=== PATIENT | female | born 2000 | race Caucasian/White ===

== ENCOUNTER → 2019-12-29 10:26 | Outpatient (BNVA) | payer SELFPAY | PROVIDERS: Family Provider Nurse Practitioner; PCP Nurse Practitioner; Visit Provider Nurse Practitioner Family | DX: R53.83 Other fatigue (principal) | CPT/HCPCS: 80053; 82306; 82607; 84443; 85025 ==

== ENCOUNTER 2020-08-29 10:59 | Emergency (ER) | payer SELFPAY ==
--- NOTE | 2020-08-29 11:01 | CT_ITS ---
WS: [id number] CT ABDOMEN AND PELVIS WITH CONTRAST HISTORY: RIGHT lower quadrant abdominal pain for one day. TECHNIQUE: Imaging performed of the abdomen and pelvis with IV contrast. Single phase imaging of the abdomen. Coronal and sagittal reformats are submitted. All CT scans at [facility] use at least one of these dose optimization techniques: automated exposure control; mA and/or kV adjustment per patient size (includes targeted exams where dose is matched to clinical indication); or iterativ e reconstruction. IV CONTRAST: Omnipaque 300; 95 mL IV. Oral contrast: No DLP: 470.98 mGy.cm COMPARISON: 03/31/2017 Lower thorax: Lung bases are clear. Heart is normal size. No hiatal hernia. Liver/biliary system: Normal size with no intrahepatic dilatation. Gallbladder: Normal. No gallstones or wall thickening. No pericholecystic fluid. Pancreas: Normal. Spleen: Normal. Adrenal glands: Normal. Right kidney: Normal. Left kidney: Normal. Aorta: Normal. Lymphadenopathy: None. Free fluid: None. GI tract: Normal appendix. No GI tract obstruction. No evidence for colitis. Abdominal wall: Unremarkable abdominal wall. No hernia. Pelvis: Nondistended urinary bladder. The uterus is midline. There are several small follicles associ ated with the RIGHT ovary. The entire cluster of follicles measures 2.1 x 2.1 cm. No adenopathy or fr ee fluid. Bones: Unremarkable. CT/CT abdomen pelvis w con* [id number] IMPRESSION: 1. Normal appendix. 2. Small cluster of RIGHT ovarian follicles. No solid mass or large cyst. 3. No free fluid.
--- NOTE | 2020-08-29 11:12 | W.ED.ABDPA2 ---
HPI - Abdominal Pain General: Chief Complaint: Abdominal Pain Stated Complaint: ABD PAIN/APPENDIX RELATED ISSUES Time Seen by Provider: 08/29/20 11:02 Source: patient Mode of arrival: ambulatory Limitations: no limitations History of Present Illness: HPI narrative: 20-year-old female states she started having abdominal pain last night that worsened today. States her pain is sharp in nature and rates it a 9 out of 10. Patient was seen in clinic earlier and sent her here to rule out appendicitis. She has had vomiting no fever. MD elicited complaint: abdominal pain Pertinent past history: none Onset (ago): day(s) Pain Consistency: constant Location: RLQ Severity: moderate Quality: stabbing Radiation: none Migration to: no migration Exacerbating factors: movement Relieving factors: rest Associated Symptoms: Denies chills, dysuria and fever(s) Review of Systems Const: Denies: fever(s), chills, body aches or change in appetite Eyes: Denies: blurry vision or eye discomfort ENMT: Denies: throat pain or dental pain Card: Denies: chest pain Resp: Denies: dyspnea GI: Reports: abdominal pain : Denies: dysuria Musc: Denies: neck pain or back pain Skin/Breast: Denies: rash Neuro: Denies: headache(s) Psych: Denies: depression Howard/Lymph: Denies: easy bruising All/Imm: Denies: urticaria PFSH ED PFSH: Family History Family/Other Hypertension Denies family history of Clotting disorder Anesthesia complication Bleeding disorder Social History Smoking and tobacco status: former smoker Second hand smoke exposure: No Alcohol intake: never Lives independently: No Household members: family Marital status: Single service: No Current occupational status: student 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 [employer] History of recent travel: No Current gender identity: Female Physical Exam Const: COMMON NORMALS: no acute distress, patient oriented x3 and healthy appearing HENMT: COMMON NORMALS: normocephalic and atraumatic HEAD & SCALP: normocephalic and atraumatic Eye: COMMON NORMALS: Equal, round and reactive pupils present and EOMs intact bilaterally PUPIL: Yes Equal, round and reactive pupils present Neck/C-Spine: COMMON NORMALS: full ROM and supple Chest: COMMONS NORMALS: normal inspection of the chest and normal palpation of entire chest wall Resp: COMMON NORMALS: normal respiratory effort, No retractions, No use of accessory muscles and clear to auscultation bilaterally AUSCULTATION: clear to auscultation bilaterally Cardio: COMMON NORMALS: regular rate, regular rhythm and No murmurs present (Cardio) RATE: regular rate RHYTHM: regular rhythm GI: COMMON NORMALS: Normal to inspection, nondistended, normoactive bowel sounds present, Soft to palpation and no masses PALPATION: Yes Soft to palpation and Yes Tenderness to palpation present (GI) Details: RLQ Extremity: COMMON NORMALS: normal to inspection and full ROM Neuro: COMMON NORMALS: patient oriented x3, moves all extremities and no focal motor deficits Psych: COMMON NORMALS: mental status grossly normal, Normal thought process present and cooperative THOUGHT PROCESS: Normal thought process present Skin: COMMON NORMALS: no rashes or lesions noted and no wounds GENERAL SKIN EXAM: no rashes or lesions noted Course Vital Signs: Vital signs: Vital Signs Temperature 97.2 F L 08/29/20 11:35 Pulse Rate 78 08/29/20 11:35 Respiratory Rate 18 08/29/20 12:52 Blood Pressure 119/81 08/29/20 11:35 Pulse Oximetry 98 08/29/20 12:52 MDM - Abdominal Pain MDM Narrative: Medical decision making narrative: Patient presents here with abdominal pain likely from ovarian cyst. CT showed no signs of appendicitis. Formal ultrasound showed good blood flow to both ovaries no signs of torsion. Patient abdominal exam at discharge is benign. He is stable for discharge and is to follow-up with PCP in 2 to 4 days and return if worsening. Lab Data: Labs: Lab Results 08/29/20 08/29/20 08/29/20 Range/Units 11:24 11:24 12:15 WBC 9.7 (4.0-10.0) 10^3/ uL RBC 4.80 (4.1-5.3) 10^6/u L Hgb 14.4 (11.5-15.3) g/dL Hct 45.2 (37.0-47.0) % MCV 94.2 (81-99) fL MCH 30.0 (28.0-34.0) pg MCHC 31.9 (30.0-36.0) g/dL RDW 12.4 (12.1-15.1) % Plt Count 369 (130-400) 10^3/c mm MPV 10.2 (7.4-10.4) fL Neut % (Auto) 76.3 % Lymph % (Auto) 16.1 % Ward % (Auto) 6.3 % Eos % (Auto) 0.4 % Baso % (Auto) 0.7 % Neut # (Auto) 7.38 (1.8-7.7) 10^3/u L Lymph # (Auto) 1.6 (0.8-4.8) 10^3/u L Ward # (Auto) 0.6 (0.2-0.9) 10^3/u L Eos # (Auto) 0.0 (0.0-0.8) 10^3/u L Baso # (Auto) 0.1 (0.0-0.1) 10^3/u L Nucleated RBC % (a uto) 0 % Nucleated RBCs # 0.0 /100WBC Sodium 140 (136-145) mmol/L Potassium 3.5 (3.5-5.1) mmol/L Chloride 104 (98-107) mmol/L Carbon Dioxide 20 L (22-29) mmol/L Anion Gap 19.5 H (5-19) BUN 10 (6-20) mg/dL Creatinine 0.7 (0.5-0.9) mg/dL GFR Calculation 105.6 (90-130) mL/min Glucose 92 (65-115) mg/dL Calculated Osmolal ity 289 (285-295) mOsm/k g Calcium 9.3 (8.5-10.5) mg/dL Total Bilirubin 0.7 (0.15-1.2) mg/dL AST 16 (0-32) U/L ALT 10 (0-33) U/L Alkaline Phosphata se 105 (35-105) IU/L Total Protein 7.6 (6.6-8.7) g/dL Albumin 4.9 (3.5-5.2) g/dL Globulin 2.7 (1.3-4.6) g/dL Lipase 39 (13-60) U/L HCG, Qual Negative (Negative) Urine Color (Yellow) Urine Appearance (CLEAR) Urine pH (5-7) Ur Specific Gravit y (1.005-1.030) Urine Protein (Negative) Urine Glucose (UA) (Normal) Urine Ketones (Negative) Urine Blood (Negative) Urine Nitrate (Negative) Urine Bilirubin (Negative) Urine Urobilinogen (Negative) mg/dL Ur Leukocyte Hilda ase (Negative) 08/29/20 Range/Units 12:15 WBC (4.0-10.0) 10^3/ uL RBC (4.1-5.3) 10^6/u L Hgb (11.5-15.3) g/dL Hct (37.0-47.0) % MCV (81-99) fL MCH (28.0-34.0) pg MCHC (30.0-36.0) g/dL RDW (12.1-15.1) % Plt Count (130-400) 10^3/c mm MPV (7.4-10.4) fL Neut % (Auto) % Lymph % (Auto) % Ward % (Auto) % Eos % (Auto) % Baso % (Auto) % Neut # (Auto) (1.8-7.7) 10^3/u L Lymph # (Auto) (0.8-4.8) 10^3/u L Ward # (Auto) (0.2-0.9) 10^3/u L Eos # (Auto) (0.0-0.8) 10^3/u L Baso # (Auto) (0.0-0.1) 10^3/u L Nucleated RBC % (a uto) % Nucleated RBCs # /100WBC Sodium (136-145) mmol/L Potassium (3.5-5.1) mmol/L Chloride (98-107) mmol/L Carbon Dioxide (22-29) mmol/L Anion Gap (5-19) BUN (6-20) mg/dL Creatinine (0.5-0.9) mg/dL GFR Calculation (90-130) mL/min Glucose (65-115) mg/dL Calculated Osmolal ity (285-295) mOsm/k g Calcium (8.5-10.5) mg/dL Total Bilirubin (0.15-1.2) mg/dL AST (0-32) U/L ALT (0-33) U/L Alkaline Phosphata se (35-105) IU/L Total Protein (6.6-8.7) g/dL Albumin (3.5-5.2) g/dL Globulin (1.3-4.6) g/dL Lipase (13-60) U/L HCG, Qual (Negative) Urine Color Yellow (Yellow) Urine Appearance Clear (CLEAR) Urine pH 5 (5-7) Ur Specific Gravit y 1.005 (1.005-1.030) Urine Protein Neg (Negative) Urine Glucose (UA) Norm (Normal) Urine Ketones 2+ H (Negative) Urine Blood Neg (Negative) Urine Nitrate Negative (Negative) Urine Bilirubin 1+ H (Negative) Urine Urobilinogen Norm (Negative) mg/dL Ur Leukocyte Hilda ase Negative (Negative) Imaging Data ^: CT Abd/Pel: Radiologist's impression: [address] [place] [address] CT Scan Report Signed Patient: Peyton Webber Unit #: [id number] : 2000 Age/Sex: 20 / F ADM Date: 08/29/20 Loc: ER Room/Bed: Attending Dr: Ordering Provider/Ordering MD: Sebastian Johnson MD Date of Service: 08/29/20 Procedure(s): CT abdomen pelvis w con* [id number] Accession Number(s): [id number] Report Number: [id number] WS: [id number] CT ABDOMEN AND PELVIS WITH CONTRAST HISTORY: RIGHT lower quadrant abdominal pain for one day. TECHNIQUE: Imaging performed of the abdomen and pelvis with IV contrast. Single phase imaging of the abdomen. Coronal and sagittal reformats are submitted. All CT scans at [facility] use at least one of these dose optimization techniques: automated exposure control; mA and/or kV adjustment per patient size (includes targeted exams where dose is matched to clinical indication); or iterative reconstruction. IV CONTRAST: Omnipaque 300; 95 mL IV. Oral contrast: No DLP: 470.98 mGy.cm COMPARISON: 03/31/2017 Lower thorax: Lung bases are clear. Heart is normal size. No hiatal hernia. Liver/biliary system: Normal size with no intrahepatic dilatation. Gallbladder: Normal. No gallstones or wall thickening. No pericholecystic fluid. Pancreas: Normal. Spleen: Normal. Adrenal glands: Normal. Right kidney: Normal. Left kidney: Normal. Aorta: Normal. Lymphadenopathy: None. Free fluid: None. GI tract: Normal appendix. No GI tract obstruction. No evidence for colitis. Abdominal wall: Unremarkable abdominal wall. No hernia. Pelvis: Nondistended urinary bladder. The uterus is midline. There are several small follicles associated with the RIGHT ovary. The entire cluster of follicles measures 2.1 x 2.1 cm. No adenopathy or free fluid. Bones: Unremarkable. CT/CT abdomen pelvis w con* [id number] IMPRESSION: 1. Normal appendix. 2. Small cluster of RIGHT ovarian follicles. No solid mass or large cyst. 3. No free fluid. Discharge Plan Discharge Patient Disposition: Home Clinical Impression: Abdominal pain Qualifiers: Abdominal location: generalized Qualified Code(s): R10.84 - Generalized abdominal pain Condition: Stable Prescriptions: New ondansetron 4 mg tablet,disintegrating 4 mg PO Q6H PRN (Reason: nausea and vomiting) Qty: 14 RF: 0 Naprosyn 500 mg tablet 500 mg PO BID PRN (Reason: pain) Qty: 20 RF: 0 Discharge Orders: Discharge Order (Routine); Ordered 08/29/20 Ordered By: Sebastian Johnson Referrals: Nasrin Alarcon, MAINTENANCE SERVICE DISPATCHER-C [Primary Care Provider] - 1-3 days Discharge Diet: Advance as tolerated Discharge Activity: Resume usual activity Patient Instructions: Abdominal Pain (ED) Coding Level of Care Code ED Water Meter Mechanic for Chg Fwd Exam Comprehensive
[2020-08-29 11:15] VITALS: RESP 18; O2SAT 99
[2020-08-29] MEDS: morphine 4 mg/mL SDV 1 mL IVP (11:15)
[2020-08-29 11:35] VITALS: BP 119/81; PULSE 78; RESP 18; TEMP 36.2; O2SAT 98; BMI 24.7
[2020-08-29] MEDS: iohexol 300 mg/mL 100 mL Btl IV (11:48)
[2020-08-29] MEDS: sodium chloride 0.9% 1,000 ML 999 ML IV (11:57)
[2020-08-29] MEDS: ondansetron 2 mg/ML SDV 2 mL 4 MG IVP (11:57)
--- NOTE | 2020-08-29 12:14 | US_ITS ---
WS: [id number] PELVIC ULTRASOUND REASON FOR VISIT: pelvic pain TECHNIQUE: Grayscale and Doppler transabdominal ultrasound of the pelvis. FINDINGS: Uterus measures 7.2 cm x 3.7 cm x 3.0 cm. No intrauterine . Right ovary measures 3.7 cm x 1.7 cm x 1.9 cm. Left left ovary measures 4.0 cm x 2.4 cm x 1.9 cm. There are small cysts noted on the right ovary. Normal blood flow in both ovaries. No pelvic mass and no free pelvic fluid. US/US pelvic complete* [id number] IMPRESSION: No significant abnormality seen.
[2020-08-29 12:25] LABS: Add Urine Microscopic? NO
[2020-08-29 12:33] LABS: HCG Qualitative Urine. Negative (Negative); Urine Appearance Clear (CLEAR); Urine Color Yellow (Yellow)
[2020-08-29 12:34] LABS: Bilirubin Urine 1+ (Negative); Blood Urine Neg (Negative); Glucose Urine UA Norm (Normal); Ketones Urine 2+ (Negative); Leukocyte Esterase Urine Negative (Negative); Nitrate Urine Negative (Negative); Protein Urine Neg (Negative); Specific Gravity, Urine 1.005 (1.005-1.030); Urobilinogen Urine Norm (Negative); pH Urine 5 (5-7)
[2020-08-29 12:38] LABS: Basophils # 0.1 10^3/uL (0.0-0.1); Basophils % 0.7 %; Eosinophils % 0.4 %; Hematocrit 45.2 % (37.0-47.0); Hemoglobin 14.4 g/dL (11.5-15.3); Lymphocytes # 1.6 10^3/uL (0.8-4.8); Lymphocytes % 16.1 %; Mean Corpuscular HGB Conc 31.9 g/dL (30.0-36.0); Mean Corpuscular Volume 94.2 fL (81-99); Mean Platelet Volume 10.2 fL (7.4-10.4); Monocytes # 0.6 10^3/uL (0.2-0.9); Monocytes % 6.3 %; Neutrophils # 7.38 10^3/uL (1.8-7.7); Neutrophils % 76.3 %; Nucleated Red Blood Cells % 0 %; Platelet Count 369 10^3/cmm (130-400); Red Cell Distribution Width 12.4 % (12.1-15.1); White Blood Count 9.7 10^3/uL (4.0-10.0)
[2020-08-29 12:52] VITALS: RESP 18; O2SAT 98
[2020-08-29] MEDS: HYDROmorphone 1 mg/mL INJ 1 mL IVP (12:52)
[2020-08-29 13:08] LABS: Alanine Aminotransferase 10 U/L (0-33); Albumin Level 4.9 g/dL (3.5-5.2); Alkaline Phosphatase 105 IU/L (35-105); Anion Gap 19.5 (5-19); Aspartate Amino Transferase 16 U/L (0-32); Blood Urea Nitrogen 10 mg/dL (6-20); Calcium 9.3 mg/dL (8.5-10.5); Carbon Dioxide 20 mmol/L (22-29); Chloride 104 mmol/L (98-107); Creatinine Clr Calc Pharmacy 114.0771; Globulin 2.7 g/dL (1.3-4.6); Glomerular Filtration Rate 105.6 mL/min (90-130); Glucose 92 mg/dL (65-115); Lipase 39 U/L (13-60); Osmolality Calculated 289 mOsm/kg (285-295); Potassium 3.5 mmol/L (3.5-5.1); Sodium 140 mmol/L (136-145); Total Bilirubin 0.7 mg/dL (0.15-1.2); Total Protein 7.6 g/dL (6.6-8.7)
[2020-08-29 13:53] VITALS: BP 108/70; PULSE 80; RESP 16; O2SAT 99
== END 2020-08-29 13:54 | disposition home or self-care (01) ==
PROVIDERS: Emergency Provider Emergency Medicine; PCP Nurse Practitioner
DX: R10.84 Generalized abdominal pain (principal); Z87.891 Personal history of nicotine dependence
CPT/HCPCS: 12345; 74177; 76856; 80053; 81003; 81025; 83690; 85025; 96361; 96374; 96375; 99282; 99283; J1170; J2270; J2405; J7030; Q9967

== ENCOUNTER → 2020-10-03 13:55 | Outpatient (BNVA) | payer SELFPAY | PROVIDERS: PCP Nurse Practitioner; Visit Provider Internal Medicine | DX: Z20.828 Contact with and (suspected) exposure to other viral communicable diseases (principal) | CPT/HCPCS: 87635 ==

== ENCOUNTER 2020-10-09 07:24 | Day surgery (SDC) | payer SELFPAY ==
[2020-10-05 10:53] VITALS: BMI 25.4
[2020-10-09 07:51] LABS: OR HCG Qualitative Urine Negative (Negative)
[2020-10-09 08:10] VITALS: BP 131/93; PULSE 85; RESP 14; TEMP 36.7; O2SAT 100
[2020-10-09] MEDS: sodium chloride 0.9% 1,000 ML 30 ML IV (08:12)
--- NOTE | 2020-10-09 08:20 | ANES.PREANE2 ---
Pre-Anesthetic Assessment Pre-Anesthetic Assessment: Height/Weight: Height 1.6 m Weight 65.317 kg Temp Pulse Resp BP Pulse Ox 98.1 F 85 14 131/93 100 10/09/20 08:10 10/09/20 08:10 10/09/20 08:10 10/09/20 08:10 10/09/20 08:10 Preop Diagnosis: RUQ pain Proposed Procedure: Operation Date: 10/09/20 09:00 Proposed Procedures p EGD [id number], R10.11(Not Applicable) - Abran Ivy MD Familial anesthetic complications: None Was Beta Jaqui taken within 24 hours: N/A Last intake: Intake Last Liquid Date 10/08/20 Last Liquid Time 20:00 Last Solid Date 10/08/20 Last Solid Time 20:00 Social: Social History: No alcohol and No tobacco Exam: Pre-Anes Outpt Exam: alert, oriented x 3, clear to auscultation bilaterally and regular rate & rhythm Airway: Cervical ROM: WNL MP: 3 Dentition: Full Anesthetic Plan: ASA status: 1 Anesthesia: MAC Risk of > 500 ml blood loss (7ml/kg in children): No Meds/Allergies Current Medications: Current Medications Generic Name Dose Route Start Last Admin Trade Name Freq PRN Reason Stop Dose Admin Sodium Chloride 1,000 mls @ 30 ml s/hr 10/09/20 08:00 10/09/20 08:12 Sodium Chloride 0.9% IV 10/10/20 07:59 30 mls/hr .Q24H DAKSHA Administration PFSH Anesthesia PFSH: Family History Family/Other Hypertension Denies family history of Clotting disorder Anesthesia complication Bleeding disorder Social History Smoking and tobacco status: former smoker Second hand smoke exposure: No Alcohol intake: never Lives independently: No Household members: family Marital status: Single service: No Current occupational status: student 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
--- NOTE | 2020-10-09 09:12 | W.PM.OPSUD ---
Surgery/Procedure H&P Update DATE OF PROCEDURE: October 09, 2020 DATE H&P PERFORMED: 10/02/20 PREOP DIAGNOSIS: RUQ pain PLANNED PROCEDURE: Operation Date: 10/09/20 09:00 Proposed Procedures p EGD [id number], R10.11(Not Applicable) - Abran Ivy MD
[2020-10-09 09:33] VITALS: BP 104/77; PULSE 82; RESP 16; TEMP 36.3; O2SAT 99
[2020-10-09 09:49] VITALS: BP 123/77; PULSE 75; RESP 16; TEMP 36.4; O2SAT 98
--- NOTE | 2020-10-09 18:37 | ANE.PACU2 ---
Inpatient post-anesthesia follow up: Airway intact: Yes Vital signs: Temperature 97.6 F Pulse Rate 75 Respiratory Rate 16 Blood Pressure 123/77 Pulse Oximetry 98 Oxygen Delivery Me thod Room Air Oxygen Flow Rate 3 Fraction of Inspir ed Oxygen Hydration adequate: Yes Nausea and vomiting: No Pain level: 2 Mental status: Baseline
== END 2020-10-09 10:27 | disposition home or self-care (01) ==
PROVIDERS: Anesthesiology; PCP Nurse Practitioner; Visit Provider Internal Medicine
PROC: 0DJ08ZZ Inspection of Upper Intestinal Tract, Via Natural or Artificial Opening Endoscopic (ICD-10-PCS; CPT 43235; principal; 2020-10-09 09:00)
DX: R10.11 Right upper quadrant pain (principal); Z87.891 Personal history of nicotine dependence
CPT/HCPCS: 12345; 43235; 84703; J2704; J7030

== ENCOUNTER 2020-10-10 12:33 | Outpatient (CLI) | payer SELFPAY ==
--- NOTE | 2020-10-10 12:59 | US_ITS ---
WS: [id number] RIGHT UPPER QUADRANT ULTRASOUND HISTORY: RUQ PAIN COMPARISON: None available. Liver: 11.5 cm in length. Normal size liver. No bile duct dilatation or mass. Gallbladder: Normally distended gallbladder with no stones or wall thickening. CBD: 0.3 cm Pancreas: Normal size and echogenicity. Right kidney: 9.5 cm in length. Normal size and echogenicity. No hydronephrosis or mass. Aorta and IVC: Unremarkable abdominal aorta and IVC. No ascites. US/US gall bladder [id number] IMPRESSION: Normal RIGHT upper quadrant ultrasound.
== END 2020-10-10 12:34 | disposition home or self-care (01) ==
LOC: RAD 12:37
PROVIDERS: Visit Provider Internal Medicine
DX: R10.11 Right upper quadrant pain (principal)
CPT/HCPCS: 76705

== ENCOUNTER 2020-10-18 06:49 | Outpatient (CLI) | payer SELFPAY ==
--- NOTE | 2020-10-18 07:03 | NM_ITS ---
WS: [id number] NUCLEAR MEDICINE HIDA SCAN CLINICAL INFORMATION: RUQ PAIN TECHNIQUE: Following intravenous administration of 7.6 mCi of technetium 99m mebrofenin, images of th e abdomen were obtained over the course of 60 minutes. Next, gallbladder ejection fraction was determ ined by obtaining preprandial and one-hour postprandial images of the gallbladder following oral juan carlos stion of Ensure. COMPARISON: None. FINDINGS: Normal hepatic uptake at 5 minutes. Normal hepatic excretion. Gallbladder is visualized by 30 minutes . No evidence of acute cholecystitis. Normal small bowel activity. No evidence of choledocholithiasis . Gallbladder ejection fraction 76% within normal limits. No evidence of chronic cholecystitis. NM/NM hepatobiliary w phar* [id number] IMPRESSION: 1. No evidence of acute or chronic cholecystitis. 2. Gallbladder ejection fraction 76% within normal limits.
== END 2020-10-18 06:50 | disposition home or self-care (01) ==
LOC: RAD 06:53
PROVIDERS: Visit Provider Internal Medicine
DX: R10.11 Right upper quadrant pain (principal)
CPT/HCPCS: 78227; A9537

== ENCOUNTER 2021-01-13 14:45 | Emergency (ER) | payer SELFPAY ==
[2021-01-13 14:53] VITALS: BP 137/91; PULSE 117; RESP 20; TEMP 36.9; O2SAT 99; BMI 27.1
--- NOTE | 2021-01-13 15:09 | CTR_ITS ---
PROCEDURE INFORMATION: Exam: CT Lumbar Spine Without Contrast Exam date and time: 01/13/2021 3:15 PM Age: 20 years old Clinical indication: Injury or trauma; Blunt trauma (contusions or hematomas); Patient HX: Backwards fall 2 days ago now C/O L sided pain and spasms; Additional info: Fall, lumbar pain, with right sided sciatica TECHNIQUE: Imaging protocol: Computed tomography images of the lumbar spine without contrast. Radiation optimization: All CT scans at this facility use at least one of these dose optimization techniques: automated exposure control; mA and/or kV adjustment per patient size (includes targeted exams where dose is matched to clinical indication); or iterative reconstruction. COMPARISON: CR Lumbar Spine 2-3 views* [id number] 05/16/2014 2:28 PM RADIATION DOSE METRICS: Total DLP (mGy-cm): 2196.64 FINDINGS: Six lumbar vertebra are noted. No lumbar spine fracture is seen. Spinal alignment is normal. No canal stenosis or neural foraminal narrowing. A tiny renal stone is seen in the left kidney. No hydronephrosis. CT/CT lumbar spine wo con* [id number] IMPRESSION: 1. Normal lumbar spine CT scan. 2. Nonobstructing left kidney renal stone. Radiation Dose CTDIVOL = (mGy): DLP = 2196.64 (mGy-cm)
--- NOTE | 2021-01-13 15:10 | ED_ITS ---
HPI - Back Pain/Injury General: Chief Complaint: Back Pain/Injury Stated Complaint: severe backpain, numbness, tingling L leg and arm Time Seen by Provider: 01/13/21 15:03 History of Present Illness: HPI Narrative: Patient states that she fell going down the stairs on striking her low back. Said she was fine at first was a little bit sore but has progressed into the today where she woke up with spasms and pain going down her right sciatic nerve. Patient history of accidents and low back pain with sciatica from basketball injury she states states this is a worsens ever been. Has applied ice without any relief. Said when she ambulates it spasms. MD elicited complaint: fall Pertinent past history: prior back pain and recent trauma Onset (ago): day(s) (Happened on ) Timing: progressively worsening Severity: moderate Similar Symptoms Previously: Yes Quality: sharp and spasming Location: lumbar spine and right lower back Radiation: buttocks, right upper leg and right leg below the knee Exacerbating factors: movement, sitting upright and walking Relieving factors: supine Context: fall (Fell down stairs on striking her low back) Associated symptoms: Reports no associated symptoms; Deny abdominal pain, chills, fever(s), nausea or vomiting Treatments prior to arrival: cold therapy and acetaminophen Review of Systems Const: Denies: fever(s), chills or body aches Eyes: Denies: change in vision or blurry vision ENMT: Denies: throat pain or nasal congestion Card: Denies: chest pain or dyspnea on exertion Resp: Denies: dyspnea, productive cough or non-productive cough GI: Denies: abdominal pain, nausea or vomiting Musc: Reports: back pain, limited range of motion and muscle cramps; Denies: extremity pain Skin/Breast: Denies: rash Neuro: Denies: headache(s) Psych: Denies: anxiety or depression Howard/Lymph: Denies: easy bruising PFSH ED PFSH: Family History Family/Other Hypertension Denies family history of Clotting disorder Anesthesia complication Bleeding disorder Social History Smoking and tobacco status: former smoker Second hand smoke exposure: No Alcohol intake: never Lives independently: No Household members: family Marital status: Single service: No Current occupational status: student 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 [employer] History of recent travel: No Current gender identity: Female Female Reproductive History: Date of last menstrual period: 01/04/21 Physical Exam Const: COMMON NORMALS: no acute distress, average body habitus and patient oriented x3 HENMT: COMMON NORMALS: normocephalic HEAD & SCALP: normal to inspection and normocephalic FACE & SINUS: normal facial exam Eye: COMMON NORMALS: conjunctivae normal GENERAL EYE: appearance normal, both eyes and all related structures CONJUNCTIVA: Yes conjunctivae normal Neck/C-Spine: COMMON NORMALS: no JVD Chest: COMMONS NORMALS: normal inspection of the chest Resp: COMMON NORMALS: normal respiratory effort and clear to auscultation bilaterally AUSCULTATION: clear to auscultation bilaterally Cardio: COMMON NORMALS: no JVD and regular rhythm RATE: tachycardic RHYTHM: regular rhythm GI: COMMON NORMALS: Normal to inspection, nondistended, normoactive bowel sounds present Back/Pelvis: LUMBAR SPINE/LOWER BACK: Yes pain with ROM, Yes lumbar spinal tenderness (No bruising or swelling noted) Lumbar spinal tenderness location: L1 and L2, Yes paraspinal muscle tenderness Lumbar paraspinal muscle tenderness: right and Yes paraspinal muscle spasm Lumbar paraspinal muscle spasm: right PELVIS: Yes buttock abnormal (Tenderness over sciatic nerve right side) Neuro: COMMON NORMALS: patient oriented x3 Course Vital Signs: Vital signs: Vital Signs Temperature 98.4 F 01/13/21 14:53 Pulse Rate 117 H 01/13/21 14:53 Respiratory Rate 20 H 01/13/21 14:53 Blood Pressure 137/91 01/13/21 14:53 Pulse Oximetry 99 01/13/21 14:53 MDM - Back Pain/Injury MDM Narrative: Medical decision making narrative: Patient presents with back pain that started after fall on . Developed a static and spasms starting this morning. CT was negative for any acute injury. Patient responded well to Norflex injection and tramadol tablet. Patient encouraged to follow-up with chiropractor and/or PCP if no significant provement. Discharge Plan Discharge Patient Disposition: Home Clinical Impression: Fall Qualifiers: Encounter type: initial encounter Qualified Code(s): W19.XXXA - Unspecified fall, initial encounter Sciatic pain Qualifiers: Laterality: right Qualified Code(s): M54.31 - Sciatica, right side Condition: Stable Prescriptions: New K-Tab 20 mEq tablet extended release 20 meq PO DAILY Qty: 20 RF: 0 cyclobenzaprine 5 mg tablet 5 mg PO TID PRN (Reason: muscle spasm) Qty: 10 RF: 0 No Action Pepcid AC 20 mg tablet 20 mg PO DAILY RF: 0 ondansetron 4 mg tablet,disintegrating 4 mg PO DAILY RF: 0 levonorgestrel-ethinyl estrad 0.15 mg-30 mcg (91) tablets,dose pack,3 month 1 tab PO DAILY RF: 0 Discharge Orders: Discharge ED (Routine); Ordered 01/13/21 Ordered By: Quang Blackman Discharge Diet: Usual diet Discharge Activity: Increase activity as tolerated Patient Instructions: Lumbar Radiculopathy (ED) Activity Restrictions/Additional Instructions: Follow-up with medical provider as directed. Take medications as prescribed. Return to the ER or your medical provider if condition worsens. Please read and understand discharge instructions. If any questions ask please. Can apply ice to area. Do not drive while taking muscle relaxers. Gentle stretching. Can follow-up with chiropractor as needed. Coding Level of Care Code ED Remelt Furnace Expediter for Gertrudis Rosas Exam Comprehensive
[2021-01-13] MEDS: TRAMadol 50 mg Tablet PO (15:18)
[2021-01-13] MEDS: orphenadrine 30 mg/mL Inj 2 mL 60 MG IM (15:19)
--- NOTE | 2021-01-13 15:51 | PC.NURSE ---
Read and agree with assessment.
== END 2021-01-13 16:27 | disposition home or self-care (01) ==
PROVIDERS: Emergency Provider Nurse Practitioner Family
DX: M54.31 Sciatica, right side (principal); Z87.891 Personal history of nicotine dependence
CPT/HCPCS: 72131; 96372; 99283; J2360

== ENCOUNTER → 2021-03-01 10:28 | Outpatient (BNVA) | payer SELFPAY | PROVIDERS: Visit Provider Surgery | DX: R10.13 Epigastric pain (principal); Z20.822 Contact with and (suspected) exposure to COVID-19 | CPT/HCPCS: 87635 ==

== ENCOUNTER 2021-03-07 10:27 | Day surgery (SDC) | payer SELFPAY ==
[2021-03-07] VITALS (10 sets, daily range): BP systolic 109–150; BP diastolic 79–99; PULSE 67–110; RESP 16–21; TEMP 36.6–36.9; O2SAT 98–100
--- NOTE | 2021-03-07 10:38 | W.PM.OPSUD ---
Surgery/Procedure H&P Update DATE OF PROCEDURE: March 07, 2021 DATE H&P PERFORMED: 02/27/21 H&P UPDATE INFORMATION: I have reviewed H&P completed within last 30 days, I have examined patient prior to procedure and No changes to prior documentation PREOP DIAGNOSIS: RUQ pain PLANNED PROCEDURE: Operation Date: 03/07/21 13:30 Proposed Procedures p Laparoscopic Cholecystectomy [id number] r10.13(Not Applicable) - Royer Bean MD
--- NOTE | 2021-03-07 10:49 | ANES.PREANE2 ---
Pre-Anesthetic Assessment Pre-Anesthetic Assessment: Height/Weight: Height 1.6 m Weight 69.853 kg Temp Pulse Resp BP Pulse Ox 98.5 F 110 H 18 150/99 98 03/07/21 10:46 03/07/21 10:46 03/07/21 10:46 03/07/21 10:46 03/07/21 10:46 Preop Diagnosis: Cholelithiasis Proposed Procedure: Operation Date: 03/07/21 13:30 Proposed Procedures p Laparoscopic Cholecystectomy 87560 [id number](Not Applicable) - Royer Bean MD Was Beta Jaqui taken within 24 hours: N/A Was Clonidine taken within 24 hours: N/A Social: Social History: No alcohol and No tobacco Exam: Pre-Anes Outpt Exam: alert, oriented x 3, clear to auscultation bilaterally and regular rate & rhythm Airway: Submandibular: WNL Cervical ROM: WNL MP: 2 Dentition: Full History/ROS: No significant history except as noted Anesthetic Plan: ASA status: 1 Anesthesia: General Risk of > 500 ml blood loss (7ml/kg in children): No PFSH Anesthesia PFSH: Surgical History H/O esophagogastroduodenoscopy Family History Family/Other Hypertension Denies family history of Clotting disorder Anesthesia complication Bleeding disorder Social History Smoking and tobacco status: former smoker Second hand smoke exposure: No Alcohol intake: never Lives independently: No Household members: family Marital status: Single service: No Current occupational status: student 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
[2021-03-07] MEDS: sodium chloride 0.9% 1,000 ML 30 ML IV (11:00)
[2021-03-07] MEDS: diphenhydrAMINE 50 mg/mL SDV 1mL 12.5 MG IVP (11:10)
[2021-03-07] MEDS: ondansetron 2 mg/ML SDV 2 mL 4 MG IVP ×2 (11:14→12:22)
[2021-03-07 11:27] LABS: OR HCG Qualitative Urine Negative (Negative)
--- NOTE | 2021-03-07 12:17 | P.OP_ITS ---
Operative Report Date of procedure: March 07, 2021 Pre-op Diagnosis: Chronic cholecystitis Pre-op Diagnosis: Normal EGD Post-op Findings: 1. Antrum of the stomach adherent to the body of the gallbladder along with omental adhesions Procedure Done: Laparoscopic cholecystectomy Specimens removed/disposition: Gallbladder Surgeon: Royer Bean Anesthesia: General Condition: stable Disposition: PACU Procedure: The patient was taken to the operating room and was intubated under general anesthesia. After the antibiotic had been administered, the abdomen was prepped and draped in a sterile manner. Using a #15 blade, a 1 centimeter infraumbilical curvilinear incision was made and using an open Acosta technique the peritoneal cavity was entered. A 10 millimeter port was placed and 15 millimeters of pneumoperitoneum was created. A 10 millimeter, 30 degrees scope was then introduced. Three 5 millimeter ports were placed in the epigastric, midclavicular and the anterior axillary line two fingerbreadths below the costal margin on the right side under the direct visualization. Ratcheted forceps were introduced into the lateral most port and was used to retract the fundus of the gallbladder cephalad and using forceps the infundibulum of the gallbladder was retracted laterally. Using L-hook cautery the peritoneum overlying the Calot's triangle was opened medially and laterally until the cystic duct and the cystic artery were skeletonized. Dissection was carried along the body of the gallbladder and after ensuring critical view of safety, 4 clips applied on the cystic duct and 3 clips applied on the cystic artery and cut leaving, 3 clips on the remaining portion of the duct and 2 clips on the remaining portion of the artery. The rest of the gallbladder was dissected off the liver using L-hook cautery. There was no bleeding or bile leaking noted from the gallbladder fossa and the clips appeared to be in place. An EndoCatch bag was introduced to karissa ve the gallbladder. All the ports were removed under direct visualization and there was no bleeding noted from the port sites. The fascia of the umbilicus was closed using [id number] 0 Vicryl sutures and the subcutaneous tissue was approximated using 3-0 Vicryl sutures. The skin at all four ports were closed using 4-0 Monocryl and Dermabond. A total of 10 millimeters of 0.5% Marcaine was infiltrated around the port sites. The patient was stable throughout the procedure.
[2021-03-07] MEDS: metoclopramide 5 mg/mL SDV 2 mL 10 MG IVP (12:27)
[2021-03-07] MEDS: fentaNYL 50 mcg/mL INJ 2mL IVP ×3 (12:28→13:18)
--- NOTE | 2021-03-07 12:55 | ANE.PACU2 ---
Inpatient post-anesthesia follow up: Airway intact: Yes Vital signs: Temperature 98 F Pulse Rate 85 Respiratory Rate 16 Blood Pressure 127/80 Pulse Oximetry 100 Oxygen Delivery Me thod Room Air Oxygen Flow Rate Fraction of Inspir ed Oxygen Hydration adequate: Yes Nausea and vomiting: No Pain level: 2 Mental status: Baseline
== END 2021-03-07 13:51 | disposition home or self-care (01) ==
PROVIDERS: Anesthesiology; Visit Provider Surgery
PROC: 0FT44ZZ Resection of Gallbladder, Percutaneous Endoscopic Approach (ICD-10-PCS; CPT 47562; principal; 2021-03-07 13:20)
DX: K81.1 Chronic cholecystitis (principal); Z87.891 Personal history of nicotine dependence
CPT/HCPCS: 47562; 81025; 84703; 88304; 96372; J0690; J1100; J1200; J1885; J2405; J2704; J2710; J2765; J3010; J3490; J7030

== ENCOUNTER 2021-05-14 14:00 | Outpatient (CLI) | payer MEDICAID, SELFPAY ==
--- NOTE | 2021-05-14 14:12 | MR_ITS ---
WS: [id number] MRI LUMBAR SPINE NONCONTRAST HISTORY: PARASPINAL BACK PAIN, RIGHT COMPARISON: CT 01/13/2021 TECHNIQUE: Sagittal and axial multisequence imaging is submitted. Normal lumbar alignment with no compression fractures or marrow edema. Disc spaces and vertebral body heights are well-preserved. Conus terminates normally at L1-2 disc level. L1-L2: Normal. L2-L3: Normal. L3-L4: Normal. L4-L5: Very mild ligamentum flavum hypertrophy and facet arthritis. L5-S1: Normal. LEFT ovarian cyst is incompletely visualized measuring 3.3 x 3.5 cm. There is a small amount of free fluid noted in the cul-de-sac. MR/MR lumbar spine wo con* [id number] IMPRESSION: 1. No disc protrusions or high-grade stenosis within the lumbar spine. 2. Simple LEFT ovarian cyst measures 3.3 x 3.5 cm with free fluid in the cul-d e-sac.
== END 2021-05-14 14:01 | disposition home or self-care (01) ==
PROVIDERS: Visit Provider Clinical Nurse Specialist Adult Health
DX: M54.5 Low back pain (principal); N83.202 Unspecified ovarian cyst, left side
CPT/HCPCS: 72148

== ENCOUNTER 2021-07-17 11:19 | Outpatient (CLI) | payer MEDICAID, SELFPAY ==
--- NOTE | 2021-07-17 11:26 | XR_ITS ---
WS: [id number] ANKLE RIGHT TECHNIQUE: 3 views of the right ankle CLINICAL INFORMATION: S99.911A - Unspecified injury of right ankle, initial enc... COMPARISON: None. FINDINGS: Normal ankle mortise. Talar dome is normal. No visualized fractures. Mild soft tissue edema XR/XR ankle RT min 3V* [id number] IMPRESSION: No acute fractures
== END 2021-07-17 11:20 | disposition home or self-care (01) ==
PROVIDERS: Visit Provider Nurse Practitioner Family
DX: M25.571 Pain in right ankle and joints of right foot; M79.89 Other specified soft tissue disorders
CPT/HCPCS: 73610

== ENCOUNTER → 2021-09-13 13:10 | Outpatient (BNVA) | payer MEDICAID, SELFPAY | PROVIDERS: Visit Provider Nurse Practitioner Family | DX: Z20.822 Contact with and (suspected) exposure to COVID-19 (principal); R68.89 Other general symptoms and signs | CPT/HCPCS: 87400; 87635 ==

== ENCOUNTER → 2021-09-25 12:27 | Outpatient (BNVA) | payer MEDICAID, SELFPAY | PROVIDERS: Visit Provider Nurse Practitioner | DX: U07.1 COVID-19 (principal) | CPT/HCPCS: 87635 ==

== ENCOUNTER 2021-10-08 22:01 | Emergency (ER) | payer MEDICAID, SELFPAY ==
[2021-10-08 22:06] VITALS: BP 137/97; PULSE 134; RESP 20; TEMP 36.6; O2SAT 98; BMI 29.0
--- NOTE | 2021-10-08 22:15 | W.ED.ABDPA2 ---
HPI - Abdominal Pain General: Chief Complaint: Abdominal Pain Stated Complaint: ABD Pain, Vomiting Time Seen by Provider: 10/08/21 22:15 History of Present Illness: HPI narrative: Ms. Webber is a 21-year-old lady with history of IBS and history of cholecystectomy who presents the emergency department due to abdominal pain. Symptom onset was spontaneous without known provoking factor approximately 2 weeks ago. Since that time she has intermittent cramping/sharp right-sided abdominal pain which when present is severe. Over the past day or so she has also developed nausea and vomiting. She has been having bowel movements, history of IBS with constipation, no blood in vomit or stool. Patient is on OCPs, does endorse some brown vaginal discharge, last period 1 week ago. Overall the course of symptoms has been worsening. Intensity is severe. No other specific changes to health, exacerbating, or alleviating factors identified. Related Data: Date of Last Menstrual Period: 10/02/21 Review of Systems General: Reports: 10 or more systems reviewed and unremarkable except in HPI and below PFSH ED PFSH: Surgical History H/O esophagogastroduodenoscopy Status post laparoscopic cholecystectomy (03/07/21) Family History Family/Other Hypertension Denies family history of Clotting disorder Anesthesia complication Bleeding disorder Social History Smoking and tobacco status: never smoked Second hand smoke exposure: No Alcohol intake: never Lives independently: No Household members: family Marital status: Single service: No Current occupational status: student 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 Distress due to pain and vomiting Eyes -no scleral icterus, no conjunctival injection ENMT - Atraumatic external nose and ears. Dry mucous membranes NECK - supple. trachea midline CARDIOVASCULAR -tachycardic rate and regular rhythm RESPIRATORY - clear to auscultation bilaterally. No retractions or accessory muscle use. ABDOMEN/GI - tenderness to palpation of right abdomen. Limited evaluation secondary to discomfort and recurrent vomiting. MSK - Extremities without obvious deformity or tenderness to palpation SKIN - Warm, Dry NEURO - alert and appropriately oriented. Moves all extremities equally. Course ED course: - Patient was seen and evaluated by me at bedside - Patient placed on cardiac monitors, IV access obtained - Initial evaluation notable for ill with active vomiting and pain as noted. -Symptom treatment ordered - Labs notable for minimal leukocytosis. Metabolic panel with mild hypokalemia. No evidence of urinary tract infection. Negative wet prep self swab. - Reassessed after symptom treatment with only mild improvement in pain, additional treatment ordered. Shared decision-making regarding imaging including risks and benefits, given physical exam findings as well as overall clinical appearance CT imaging is reasonable and patient elected to proceed with CT - Imaging notable for no acute finding to explain patient's symptoms. - Upon serial reexamination after treatment the patient was improved. Tolerated p.o. intake. - Based on patient history, evaluation, labs, and imaging as interpreted the most likely cause of the patient's condition is unspecified abdominal pain with nausea and vomiting. - The results of ED evaluation were discussed with the patient including prescriptions and/or symptomatic cares (if applicable) including appropriate and responsible use, followup plan, and return precautions. The patient verbalized understanding and felt safe for discharge. - Patient discharged in satisfactory condition. Vital Signs: Vital signs: Vital Signs Temperature 98.3 F 10/09/21 04:38 Pulse Rate 86 10/09/21 04:38 Respiratory Rate 16 10/09/21 04:38 Blood Pressure 124/79 10/09/21 04:38 Pulse Oximetry 100 10/09/21 04:38 MDM - Abdominal Pain MDM Narrative: Medical decision making narrative: 21-year-old with nausea, vomiting, and abdominal pain. Negative abdominal CT. Improved with multiple rounds of treatment. Tolerated p.o. Satisfactory for discharge. Medical Records: Attestation: I reviewed the patient's medical records. Lab Data: Attestation: I reviewed the patient's lab results. Labs: Lab Results 10/08/21 10/08/21 10/08/21 22:36 22:36 22:50 WBC 10.4 10^3/uL H 10 ^3/uL (4.0-10.0) RBC 4.53 10^6/uL 10^6 /uL (4.1-5.3) Hgb 13.5 g/dL g/dL (11.5-15.3) Hct 40.6 % % (37.0-47.0) MCV 89.6 fl fl (81-99) MCH 29.8 pg pg (28.0-34.0) MCHC 33.3 g/dL g/dL (30.0-36.0) RDW 12.3 % % (12.1-15.1) Plt Count 400 10^3/cmm 10^3 /cmm (130-400) MPV 9.7 fL fL (7.4-10.4) Neut % (Auto) 62.4 % % Lymph % (Auto) 28.0 % % Republic % (Auto) 7.9 % % Eos % (Auto) 1.0 % % Baso % (Auto) 0.5 % % Neut # (Auto) 6.47 10^3/uL 10^3 /uL (1.8-7.7) Lymph # (Auto) 2.9 10^3/uL 10^3/ uL (0.8-4.8) Republic # (Auto) 0.8 10^3/uL 10^3/ uL (0.2-0.9) Eos # (Auto) 0.1 10^3/uL 10^3/ uL (0.0-0.8) Baso # (Auto) 0.1 10^3/uL 10^3/ uL (0.0-0.1) Nucleated RBC % (a uto) 0 % % Nucleated RBCs # 0.0 /100WBC /100W BC Sodium Potassium Chloride Carbon Dioxide Anion Gap BUN Creatinine GFR Calculation Glucose Calculated Osmolal ity Calcium Total Bilirubin AST ALT Alkaline Phosphata se Total Protein Albumin Globulin Lipase HCG, Qual Negative (Negative) Urine Color Yellow (Yellow) Urine Appearance Clear (CLEAR) Urine pH 6 (5-7) Ur Specific Gravit y 1.010 (1.005-1.030) Urine Protein Neg (Negative) Urine Glucose (UA) Norm (Normal) Urine Ketones Negative (Negative) Urine Blood 2+ H (Negative) Urine Nitrate Negative (Negative) Urine Bilirubin Neg (Negative) Urine Urobilinogen Neg mg/dL mg/dL (Negative) Ur Leukocyte Hilda ase Negative (Negative) Urine RBC 0-4 /hpf H /hpf (0-2) Urine WBC 0-4 /hpf H /hpf (0-5) Ur Squamous Epith Cells 0-4 /hpf H /hpf (0-5) Amorphous Sediment Not Reportable Urine Bacteria None /hpf /hpf (NONE) SARS-CoV-2 Ag (Rap id) 10/08/21 10/09/21 22:50 00:05 WBC RBC Hgb Hct MCV MCH MCHC RDW Plt Count MPV Neut % (Auto) Lymph % (Auto) Republic % (Auto) Eos % (Auto) Baso % (Auto) Neut # (Auto) Lymph # (Auto) Republic # (Auto) Eos # (Auto) Baso # (Auto) Nucleated RBC % (a uto) Nucleated RBCs # Sodium 139 mmol/L mmol/L (136-145) Potassium 3.4 mmol/L L mmol /L (3.5-5.1) Chloride 102 mmol/L mmol/L (98-107) Carbon Dioxide 23 mmol/L mmol/L (22-29) Anion Gap 17.4 (5-19) BUN 9 mg/dL mg/dL (6-20) Creatinine 0.6 mg/dL mg/dL (0.5-0.9) GFR Calculation 125.0 mL/min mL/m in (90-130) Glucose 112 mg/dL mg/dL (65-115) Calculated Osmolal ity 287 mOsm/kg mOsm/ kg (285-295) Calcium 8.5 mg/dL mg/dL (8.5-10.5) Total Bilirubin 0.2 mg/dL mg/dL (0.15-1.2) AST 13 U/L U/L (0-32) ALT 7 U/L U/L (0-33) Alkaline Phosphata se 87 IU/L IU/L (35-105) Total Protein 7.6 g/dL g/dL (6.6-8.7) Albumin 4.4 g/dL g/dL (3.5-5.2) Globulin 3.2 g/dL g/dL (1.3-4.6) Lipase 56 U/L U/L (13-60) HCG, Qual Urine Color Urine Appearance Urine pH Ur Specific Gravit y Urine Protein Urine Glucose (UA) Urine Ketones Urine Blood Urine Nitrate Urine Bilirubin Urine Urobilinogen Ur Leukocyte Hilda ase Urine RBC Urine WBC Ur Squamous Epith Cells Amorphous Sediment Urine Bacteria SARS-CoV-2 Ag (Rap id) Negative (Negative) EKG Data ^: EKG 1: Attestation: I personally reviewed and interpreted this EKG as follows: EKG interpretation date: 10/08/21 EKG interpretation time: 22:34 Interpretation: Twelve-lead EKG shows a regular rhythm at a rate of 116. FL interval 154, QRS duration 89, QTc 376. Normal axis. Interpretation: Sinus tachycardia. Discharge Plan Discharge Patient Disposition: Home Clinical Impression: Abdominal pain, Nausea & vomiting, Acute dehydration, Hypokalemia Condition: Stable Prescriptions: New Reglan 10 mg tablet 10 mg PO Q6H PRN (Reason: nausea and vomiting) Qty: 12 RF: 0 oxycodone 5 mg tablet 5 mg PO Q6H PRN (Reason: pain) Qty: 4 RF: 0 No Action fluticasone propionate [Flonase Allergy Relief] 50 mcg/actuation spray,suspension 2 spray intranasal DAILY RF: 0 norgestimate-ethinyl estradiol [Tri-Sprintec (28)] 0.18/0.215/0.25 mg-35 mcg (28) tablet 1 tab PO DAILY RF: 0 Linzess 72 mcg capsule 72 mcg PO DAILY PRN (Reason: constipation) Qty: 30 RF: 0 Discharge Orders: Discharge ED (Routine); Ordered 10/09/21 Ordered By: Isra Dela Cruz Discharge Diet: Advance as tolerated and Clear Liquid Discharge Activity: Increase activity as tolerated Patient Instructions: Hypokalemia (ED), Acute Nausea and Vomiting (ED), Abdominal Pain (ED), Opioid Safety Activity Restrictions/Additional Instructions: Thank you for visiting the emergency department. You were seen and evaluated for abdominal pain, nausea, vomiting. The exact cause of your symptoms is unclear however we are pleased that this improved with symptom treatment. I would expect that you would improve in the next few days however if you worsen or unable to tolerate oral intake please return to the emergency department. Please follow-up with your primary care provider. Return to the emergency department for anything else that you are concerned about and feel needs emergency department evaluation. 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
--- NOTE | 2021-10-08 22:21 | CTR_ITS ---
PROCEDURE INFORMATION: Exam: CT Abdomen And Pelvis With Contrast Exam date and time: 10/08/2021 10:21 PM Age: 21 years old Clinical indication: Nausea and vomiting and other: Diarrhea; Abdominal pain; Prior surgery; Surgery type: Gb; Additional info: Right sided abd pain, n/v TECHNIQUE: Imaging protocol: Computed tomography of the abdomen and pelvis with contrast. Total images: 257 Radiation optimization: All CT scans at this facility use at least one of these dose optimization techniques: automated exposure control; mA and/or kV adjustment per patient size (includes targeted exams where dose is matched to clinical indication); or iterative reconstruction. Contrast material: OMNI 300; Contrast volume: 95 ml; Contrast route: INTRAVENOUS (IV); COMPARISON: CT abdomen pelvis w con* [id number] 08/29/2020 11:31 AM RADIATION DOSE METRICS: Total DLP (mGy-cm): 1584.08 FINDINGS: Lungs: Limited assessment of the lung bases fails to reveal evidence for active cardiopulmonary process. Liver: No visible hepatic mass or cystic structure. Gallbladder and bile ducts: Status post cholecystectomy. Pancreas: Pancreas is unremarkable. No visible pancreatic ductal ectasia. Spleen: Small splenule. Spleen otherwise unremarkable. Adrenal glands: Adrenal glands unremarkable. Kidneys and ureters: No hydronephrosis or perinephric fluid. No visible nephrolithiasis or visible ureterolithiasis. No visible renal mass. Stomach and bowel: Assessment of the hollow viscus fails to reveal evidence of active or acute pathology. Nonobstructed bowel pattern. No visible acute diverticulitis. No visible adynamic or reactive ileus. Appendix: The appendix is visualized and appears noninflamed. Intraperitoneal space: No visible pneumoperitoneum or intraperitoneal ascites. Vasculature: The abdominal aorta is nonaneurysmal. Portal vein patent. Lymph nodes: No current visible evidence of active mesenteric or retroperitoneal lymphadenopathy. No visible evidence of mesenteric lymphadenitis or active mesenteritis/panniculitis. Urinary bladder: Urinary bladder decompressed. Reproductive: Unremarkable as visualized. Bones/joints: No visible acute osseous abnormality. Soft tissues: Unremarkable. CT/CT abdomen pelvis w con* [id number] IMPRESSION: Currently no visible evidence for acute abdominal or pelvic pathologic process.
[2021-10-08 22:45] LABS: HCG Qualitative Urine. Negative (Negative)
[2021-10-08 22:47] VITALS: RESP 18
[2021-10-08] MEDS: ondansetron 2 mg/ML SDV 2 mL 4 MG IVP (22:47)
[2021-10-08] MEDS: morphine 4 mg/mL SDV 1 mL IVP (22:47)
[2021-10-08 22:49] LABS: Add Urine Microscopic? YES; Bilirubin Urine Neg (Negative); Blood Urine 2+ (Negative); Glucose Urine UA Norm (Normal); Ketones Urine Negative (Negative); Leukocyte Esterase Urine Negative (Negative); Nitrate Urine Negative (Negative); Protein Urine Neg (Negative); Urine Appearance Clear (CLEAR); Urine Color Yellow (Yellow); Urobilinogen Urine Neg (Negative); pH Urine 6 (5-7)
[2021-10-08 22:52] LABS: RBC Urine 0-4 /hpf (0-2); Squamous Epithelial Cell Urine 0-4 /hpf (0-5); WBC Urine 0-4 /hpf (0-5)
[2021-10-08 22:53] LABS: Add Urine Culture? No
[2021-10-08] MEDS: iohexol 300 mg/mL 100 mL Btl IV (22:55)
[2021-10-08 22:57] LABS: Basophils # 0.1 10^3/uL (0.0-0.1); Basophils % 0.5 %; Eosinophils # 0.1 10^3/uL (0.0-0.8); Hematocrit 40.6 % (37.0-47.0); Hemoglobin 13.5 g/dL (11.5-15.3); Lymphocytes # 2.9 10^3/uL (0.8-4.8); Mean Corpuscular HGB Conc 33.3 g/dL (30.0-36.0); Mean Corpuscular Hemoglobin 29.8 pg (28.0-34.0); Mean Corpuscular Volume 89.6 fl (81-99); Mean Platelet Volume 9.7 fL (7.4-10.4); Monocytes # 0.8 10^3/uL (0.2-0.9); Monocytes % 7.9 %; Neutrophils # 6.47 10^3/uL (1.8-7.7); Neutrophils % 62.4 %; Nucleated Red Blood Cells % 0 %; Platelet Count 400 10^3/cmm (130-400); Red Blood Count 4.53 10^6/uL (4.1-5.3); Red Cell Distribution Width 12.3 % (12.1-15.1); White Blood Count 10.4 10^3/uL (4.0-10.0)
[2021-10-08 23:14] LABS: Alanine Aminotransferase 7 U/L (0-33); Albumin Level 4.4 g/dL (3.5-5.2); Alkaline Phosphatase 87 IU/L (35-105); Anion Gap 17.4 (5-19); Aspartate Amino Transferase 13 U/L (0-32); Blood Urea Nitrogen 9 mg/dL (6-20); Calcium 8.5 mg/dL (8.5-10.5); Carbon Dioxide 23 mmol/L (22-29); Chloride 102 mmol/L (98-107); Globulin 3.2 g/dL (1.3-4.6); Glucose 112 mg/dL (65-115); Lipase 56 U/L (13-60); Osmolality Calculated 287 mOsm/kg (285-295); Potassium 3.4 mmol/L (3.5-5.1); Sodium 139 mmol/L (136-145); Total Bilirubin 0.2 mg/dL (0.15-1.2); Total Protein 7.6 g/dL (6.6-8.7)
[2021-10-09 00:21] VITALS: BP 139/88; PULSE 125; RESP 18; O2SAT 100
[2021-10-09 00:38] LABS: SARS Covid-2 Antigen Negative (Negative)
[2021-10-09 00:51] VITALS: RESP 18
[2021-10-09] MEDS: morphine 4 mg/mL SDV 1 mL IVP (00:51)
[2021-10-09] MEDS: sodium chloride 0.9% 1,000 ML 999 ML IV ×2 (00:51→03:23)
[2021-10-09 01:42] VITALS: BP 135/90; PULSE 107; RESP 16; O2SAT 98
--- NOTE | 2021-10-09 02:06 | XRR_ITS ---
PROCEDURE INFORMATION: Exam: XR Chest Exam date and time: 10/09/2021 2:06 AM Age: 21 years old Clinical indication: Patient HX: Onset of tachycardia while in er. TECHNIQUE: Imaging protocol: XR of the chest. Views: 1 view. COMPARISON: CT abdomen pelvis w con* [id number] 10/08/2021 10:54 PM FINDINGS: Lungs: Unremarkable. No consolidation. Pleural spaces: Unremarkable. No pleural effusion. No pneumothorax. Heart/Mediastinum: Unremarkable. No cardiomegaly. Bones/joints: Unremarkable. XR/XR chest 1V portable [id number] IMPRESSION: No acute findings.
[2021-10-09] MEDS: metoclopramide 5 mg/mL SDV 2 mL 10 MG IVP (02:46)
[2021-10-09 04:00] VITALS: BP 126/77; PULSE 88; RESP 16; O2SAT 99
[2021-10-09 04:38] VITALS: BP 124/79; PULSE 86; RESP 16; TEMP 36.8; O2SAT 100
== END 2021-10-09 04:39 | disposition home or self-care (01) ==
PROVIDERS: Emergency Provider Emergency Medicine
DX: R10.9 Unspecified abdominal pain (principal); R11.2 Nausea with vomiting, unspecified; E86.0 Dehydration; E87.6 Hypokalemia
CPT/HCPCS: 71045; 74177; 80053; 81001; 81025; 83690; 85025; 87210; 87426; 96361; 96374; 96375; 96376; 99284; J2270; J2405; J2765; J7030; Q9967

== ENCOUNTER 2021-12-03 09:55 | Emergency (ER) | payer MEDICAID, SELFPAY ==
[2021-12-03] VITALS (7 sets, daily range): BP systolic 128–189; BP diastolic 90–96; PULSE 88–116; RESP 16–201; TEMP 36.4–36.7; O2SAT 96–100; BMI 27.4
--- NOTE | 2021-12-03 10:41 | ED_ITS ---
HPI - Chest Pain General: Chief Complaint: Chest Pain Stated Complaint: heart issues Time Seen by Provider: 12/03/21 10:27 Source: patient and family Mode of arrival: wheelchair Limitations: no limitations History of Present Illness: Patient is a 21-year-old female who presents to ED today along with her parents for episodes of chest pains, tachycardia, shortness of breath, tremors, weakness/lightheadedness. Patient and parents state these episodes initially began back in October and used to happen fairly infrequently however they have increased over the past 2 months and states now she will some times have several episodes a day. Patient states she was evaluated by her PCP who performed an EKG/Holter monitor. They do not have the results of this yet. Patient states her symptoms can come on anytime. She states she begins feeling very nauseous and then will begin developing chest pain and a racing heart. She states heart rate can get up into the 130s. Patient states she feels very ramirez mulous and lightheaded. Mother states she has collapsed before and father states she goes like a limp noodle . Patient states her symptoms do not seem to be related to anxiety. She does complain of shortness of breath with lying flat. She states heart rate becomes very elevated with minimal exertion. When asked how she feels in between episodes she states I have not felt good in several months reporting she feels very fatigued and weak. Onset (ago): week(s) Timing of current episode: episodic Prior episodes: Yes Associated symptoms: Reports dyspnea, nausea and palpitations; Deny abdominal pain, fever(s) or vomiting Treatment prior to arrival: none Risk Factors: Coronary artery disease risk factors: none Thoracic aortic dissection risk factors: none Related Data: On Oral Contraceptives: Yes Review of Systems Const: Reports: fatigue; Denies: fever(s), chills, body aches or malaise Eyes: Denies: change in vision or blurry vision ENMT: Denies: throat pain, odynophagia, nasal discharge or nasal congestion Card: Reports: chest pain, palpitations, lightheadedness, pre-syncope, dyspnea on exertion and orthopnea; Denies: edema, swelling of feet/ankles, leg pain with exertion or acrocyanosis Resp: Reports: dyspnea; Denies: productive cough, non-productive cough, wheezing, hemoptysis or chest congestion GI: Reports: nausea; Denies: abdominal pain, vomiting, heartburn or diarrhea : Denies: flank pain or dysuria Musc: Denies: neck pain, back pain, extremity pain or joint pain Skin/Breast: Denies: rash Neuro: Reports: dizziness; Denies: headache(s), numbness in extremities, weakness in extremities, sensory changes, lack of coordination, frequent falls, vertigo, confusion, behavioral changes, Slurred speech present or seizure-like activity Psych: Denies: anxiety PFSH ED 2 PFSH: Surgical History H/O esophagogastroduodenoscopy Status post laparoscopic cholecystectomy (03/07/21) Family History Family/Other Hypertension Denies family history of Clotting disorder Anesthesia complication Bleeding disorder Social History Smoking and tobacco status: never smoked Second hand smoke exposure: No Alcohol intake: never Lives independently: No Household members: family Marital status: Single service: No Current occupational status: student 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 [employer] History of recent travel: No Current gender identity: Female Female Reproductive History: Date of last menstrual period: 10/02/21 Physical Exam Const: COMMON NORMALS: average body habitus, patient oriented x3, no limitations, healthy appearing, alert and well nourished GENERAL APPEARANCE: cooperative ORIENTATION/CONSCIOUSNESS: Yes awake, Yes oriented to person, Yes oriented to place and Yes oriented to time OTHER: tremulous HENMT: COMMON NORMALS: normocephalic and atraumatic HEAD & SCALP: normal to inspection, normocephalic and atraumatic Eye: COMMON NORMALS: Equal, round and reactive pupils present and EOMs intact bilaterally GENERAL EYE: appearance normal, both eyes and all related structures PUPIL: Yes Equal, round and reactive pupils present Neck/C-Spine: COMMON NORMALS: full ROM, no lymphadenopathy, supple, no meningeal signs, no JVD, Thyroid normal and No carotid bruits GENERAL: Yes normal visual inspection THYROID: Thyroid normal Chest: COMMONS NORMALS: normal inspection of the chest and normal palpation of entire chest wall Resp: COMMON NORMALS: normal respiratory effort and clear to auscultation bilaterally AUSCULTATION: clear to auscultation bilaterally Cardio: COMMON NORMALS: no JVD and regular rhythm RATE: tachycardic RH YTHM: regular rhythm GI: COMMON NORMALS: Normal to inspection, nondistended, normoactive bowel sounds present, Soft to palpation, non-tender, No hepatosplenomegaly present and no masses PALPATION: Yes Soft to palpation and Yes No hepatosplenomegaly present : COMMON NORMALS: Yes no CVA tenderness BLADDER/KIDNEY EXAM: Yes no CVA tenderness Back/Pelvis: COMMON NORMALS: no CVA tenderness Extremity: COMMON NORMALS: normal to inspection, capillary refill normal, no joint enlargement, no clubbing, cyanosis or edema, no calf tenderness and no pedal edema GENERAL: Yes normal exam except as noted Neuro: ULISES COMA SCALE: document GCS findings [place] coma scale eye opening: Spontaneous Ulises coma scale verbal response: Orientated Ulises coma scale motor response: Obey commands Ulises coma scale total score: 15 COMMON NORMALS: patient oriented x3, moves all extremities, no focal motor deficits and no sensory deficits noted SENSORIUM/ORIENTATION: Yes alert, Yes oriented to person, Yes oriented to place and Yes oriented to time MENINGEAL SIGNS: Yes no meningeal signs Skin: COMMON NORMALS: no rashes or lesions noted GENERAL SKIN EXAM: no rashes or lesions noted Course Vital Signs: Vital signs: Vital Signs Temperature 98.1 F 12/03/21 12:30 Pulse Rate 88 12/03/21 12:30 Respiratory Rate 18 12/03/21 12:30 Blood Pressure 128/91 12/03/21 12:30 Pulse Oximetry 96 12/03/21 12:30 MDM - Chest Pain Medical Decision Making Patient was initially hypertensive, tachycardic, and tremulous during my initial physical exam assessment. These findings have all resolved without intervention. Patient tells me that her episode was consistent with her previous episodes that she has had over the past few months. Patient reportedly has had a Holter monitor but states they have not been told the results (I cannot find anything in our system regarding this). Patient's work-up today including CBC, CMP, D-dimer, TSH, BNP, troponin all of which are unremarkable. Her CXR is normal. EKG showing no abnormal tachyarrhythmias, pre-excitation syndromes, etc. patient did have a COVID infection in September and the symptoms began in October-possibly related to long-haul COVID symptoms. She feels like some of her symptoms are worse with exertion. They do not seem to be positional. DDx PE (ruled out by zohreh), anxiety, hyperventilation syndrome, POTS, hyperthyroidism (TSH normal today), stimulate exposure although patient denies these, neurogenic (she states she has had tremors/passing out episodes before these episodes started). Less likely pheochromocytoma, cardiomyopathy. Will have patient follow-up with cardiology. They should have results of Holter monitor at that time. If they can definitively rule out cardiac they can start looking for other etiologies for her symptoms. I think starting her on some propranolol might be beneficial. Patient can also follow-up with her PCP in the meantime for further evaluation. Lab Data : 12/03/21 10:55 12/03/21 10:55 Radiology Impressions Chest X-Ray 12/03/21 10:41 IMPRESSION: No acute findings. Laboratory Results WBC 10.7 10^3/uL (4.0-10.0) H 12/03/21 10:55 RBC 4.58 10^6/uL (4.1-5.3) 12/03/21 10:55 Hgb 14.0 g/dL (11.5-15.3) 12/03/21 10:55 Hct 42.8 % (37.0-47.0) 12/03/21 10:55 MCV 93.4 fl (81-99) 12/03/21 10:55 MCH 30.6 pg (28.0-34.0) 12/03/21 10:55 MCHC 32.7 g/dL (30.0-36.0) 12/03/21 10:55 RDW 12.9 % (12.1-15.1) 12/03/21 10:55 Plt Count 392 10^3/cmm (130-400) 12/03/21 10:55 MPV 9.6 fL (7.4-10.4) 12/03/21 10:55 Neut % (Auto) 80.4 % 12/03/21 10:55 Lymph % (Auto) 14.5 % 12/03/21 10:55 Lucas % (Auto) 4.3 % 12/03/21 10:55 Eos % (Auto) 0.2 % 12/03/21 10:55 Baso % (Auto) 0.3 % 12/03/21 10:55 Neut # (Auto) 8.60 10^3/uL (1.8-7.7) H 12/03/21 10:55 Lymph # (Auto) 1.6 10^3/uL (0.8-4.8) 12/03/21 10:55 Lucas # (Auto) 0.5 10^3/uL (0.2-0.9) 12/03/21 10:55 Eos # (Auto) 0.0 10^3/uL (0.0-0.8) 12/03/21 10:55 Baso # (Auto) 0.0 10^3/uL (0.0-0.1) 12/03/21 10:55 Nucleated RBC % (auto) 0 % 12/03/21 10:55 Nucleated RBCs # 0.0 /100WBC 12/03/21 10:55 D-Dimer 0.44 ug/mIFEU (0-0.59) 12/03/21 11:23 Sodium 137 mmol/L (136-145) 12/03/21 10:55 Potassium 4.6 mmol/L (3.5-5.1) 12/03/21 10:55 Chloride 102 mmol/L (98-107) 12/03/21 10:55 Carbon Dioxide 21 mmol/L (22-29) L 12/03/21 10:55 Anion Gap 18.6 (5-19) 12/03/21 10:55 BUN 6 mg/dL (6-20) 12/03/21 10:55 Creatinine 0.5 mg/dL (0.5-0.9) 12/03/21 10:55 GFR Calculation 154.3 mL/min (90-130) H 12/03/21 10:55 Glucose 90 mg/dL (65-115) 12/03/21 10:55 Calculated Osmolality 281 mOsm/kg (285-295) L 12/03/21 10:55 Calcium 9.7 mg/dL (8.5-10.5) 12/03/21 10:55 Total Bilirubin 0.3 mg/dL (0.15-1.2) 12/03/21 10:55 AST 9 U/L (0-32) 12/03/21 10:55 ALT 6 U/L (0-33) 12/03/21 10:55 Alkaline Phosphatase 83 IU/L (35-105) 12/03/21 10:55 Troponin T Baseline 6 ng/L (0-10) 12/03/21 10:55 NT-Pro-B Natriuret Pep 28 pg/mL (0-125) 12/03/21 10:55 Total Protein 7.4 g/dL (6.6-8.7) 12/03/21 10:55 Albumin 4.8 g/dL (3.5-5.2) 12/03/21 10:55 Globulin 2.6 g/dL (1.3-4.6) 12/03/21 10:55 TSH 1.58 uIU/mL (0.27-4.20) 12/03/21 10:55 HCG, Qual Negative (Negative) 12/03/21 10:55 EKG Data EKG 1: EKG interpretation date: 12/03/21 EKG interpretation time: 10:09 Interpretation: Sinus tachycardia Rate [address] elevation or depression changes noted Discharge Plan Discharge Patient Disposition: Home Clinical Impression: Atypical chest pain, Paroxysmal sinus tachycardia Condition: Stable Prescriptions: New propranolol 20 mg tablet 20 mg PO BID Qty: 60 0RF No Action norgestimate-ethinyl estradiol [Tri-Sprintec ()] 0.18/0.215/0.25 mg-35 mcg (28) tablet 1 tab PO DAILY 0RF Linzess 72 mcg capsule 72 mcg PO DAILY 0RF Discharge Orders: Discharge ED (Routine); Ordered 12/03/21 Ordered By: Alessia Baptiste Referrals: Rob Pires [Primary Care Provider] - Coding Level of Care Code ED Foiling Machine Operator for Chg Fwd Exam Comprehensive
--- NOTE | 2021-12-03 10:41 | XRR_ITS ---
PROCEDURE INFORMATION: Exam: XR Chest Exam date and time: 12/03/2021 10:41 AM Age: 21 years old Clinical indication: Pain; Shortness of breath; Angina pectoris; Prior surgery; Surgery type: Gallbladder; Additional info: Chest pain TECHNIQUE: Imaging protocol: XR of the chest. Views: 1 view. COMPARISON: CR XR chest 1V portable [id number] 10/09/2021 2:10 AM FINDINGS: Lungs: Unremarkable. No consolidation. Pleural spaces: Unremarkable. No pleural effusion. No pneumothorax. Heart/Mediastinum: Unremarkable. No cardiomegaly. Bones/joints: Unremarkable. XR/XR chest 1V portable [id number] IMPRESSION: No acute findings.
--- NOTE | 2021-12-03 10:41 | ECG_ITS ---
[facility] Test Date: 2021-12-03 Pat Name: Peyton Webber Department: Room: Gender: Female Configuration Management Consultant: : 2000 Requested By: Alessia Baptiste Order Number: [id number] Gamboa MD: Joanne Landaverde M.D. Measurements Intervals [place] Rate: 101 P: 55 [place]: 156 QRS: 54 QRSD: 86 T: -6 QT: 306 QTc: 397 Interpretive Statements SINUS TACHYCARDIA POSSIBLE LEFT ATRIAL ENLARGEMENT [-0.1mV P-WAVE IN V1/V2] NONSPECIFIC T-WAVE ABNORMALITY ABNORMAL RHYTHM ECG Compared to ECG 12/03/2021 10:09:01 No significant changes Electronically Signed On 12-03-2021 17:04:58 LEAD ESTHETICIAN by Joanne Landaverde M.D. [id number]
[2021-12-03 11:07] LABS: Basophils % 0.3 %; Eosinophils % 0.2 %; Hematocrit 42.8 % (37.0-47.0); Lymphocytes # 1.6 10^3/uL (0.8-4.8); Lymphocytes % 14.5 %; Mean Corpuscular HGB Conc 32.7 g/dL (30.0-36.0); Mean Corpuscular Hemoglobin 30.6 pg (28.0-34.0); Mean Corpuscular Volume 93.4 fl (81-99); Mean Platelet Volume 9.6 fL (7.4-10.4); Monocytes # 0.5 10^3/uL (0.2-0.9); Monocytes % 4.3 %; Neutrophils % 80.4 %; Nucleated Red Blood Cells % 0 %; Platelet Count 392 10^3/cmm (130-400); Red Blood Count 4.58 10^6/uL (4.1-5.3); Red Cell Distribution Width 12.9 % (12.1-15.1); White Blood Count 10.7 10^3/uL (4.0-10.0)
[2021-12-03 11:27] LABS: HCG, Serum Qual Negative (Negative)
[2021-12-03 11:31] LABS: Troponin(5th) Baseline 6 ng/L (0-10)
[2021-12-03 11:39] LABS: Alanine Aminotransferase 6 U/L (0-33); Albumin Level 4.8 g/dL (3.5-5.2); Alkaline Phosphatase 83 IU/L (35-105); Anion Gap 18.6 (5-19); Aspartate Amino Transferase 9 U/L (0-32); Blood Urea Nitrogen 6 mg/dL (6-20); Calcium 9.7 mg/dL (8.5-10.5); Carbon Dioxide 21 mmol/L (22-29); Chloride 102 mmol/L (98-107); Globulin 2.6 g/dL (1.3-4.6); Glomerular Filtration Rate 154.3 mL/min (90-130); Glucose 90 mg/dL (65-115); NT Pro B Type Natriuretic Pept 28 pg/mL (0-125); Osmolality Calculated 281 mOsm/kg (285-295); Potassium 4.6 mmol/L (3.5-5.1); Sodium 137 mmol/L (136-145); Thyroid Stimulating Hormone 1.58 uIU/mL (0.27-4.20); Total Bilirubin 0.3 mg/dL (0.15-1.2); Total Protein 7.4 g/dL (6.6-8.7)
[2021-12-03 11:46] LABS: D Dimer 0.44 ug/mIFEU (0-0.59)
--- NOTE | 2021-12-03 12:41 | ECG_ITS ---
[facility] Test Date: 2021-12-03 Pat Name: Peyton Webber Department: Room: Gender: Female Boat Rigger: : 2000 Requested By: Alessia Baptiste Order Number: [id number] Gamboa MD: Joanne Landaverde M.D. Measurements Intervals [place] Rate: 92 P: 47 [place]: 148 QRS: 55 QRSD: 84 T: -9 QT: 329 QTc: 408 Interpretive Statements SINUS RHYTHM NONSPECIFIC T-WAVE ABNORMALITY Compared to ECG 12/03/2021 10:48:15 Sinus tachycardia no longer present T-wave abnormality still present Electronically Signed On 12-03-2021 17:20:58 RESIDENCY COORDINATOR by Joanne Landaverde M.D. [id number]
--- NOTE | 2021-12-03 16:41 | ECG_ITS ---
[facility] Test Date: 2021-12-03 Pat Name: Peyton Webber Department: Room: Gender: Female Retail Shift Supervisor: : 2000 Requested By: Alessia Baptiset Order Number: [id number] Gamboa MD: Joanne Landaverde M.D. Measurements Intervals [place] Rate: 111 P: 2 [place]: 145 QRS: 8 QRSD: 86 T: 79 QT: 302 QTc: 411 Interpretive Statements SINUS TACHYCARDIA NONSPECIFIC ST & T-WAVE ABNORMALITY ABNORMAL RHYTHM ECG No previous ECG available for comparison Electronically Signed On 12-03-2021 17:20:16 GIFT SHOP MANAGER by Joanne Landaverde M.D. [id number]
--- NOTE | 2021-12-04 13:41 | DCPLANNER ---
Addendum entered by Donita Velasco 01/03/22 09:24: Patient had a follow up appointment scheduled for 01.01.[address] Arguelles at [facility] - patient did attend appointment. Original Note: hospital manager had message to schedule a follow up appointment for patient with [facility]. hospital manager called [facility], spoke with Flora, gave clinic patients information. A follow up appointment was scheduled for Saturday, January 01, 2022 at 1:[address] Fung. hospital manager called phone number [phone], unable to speak with patient at this time. A voicemail was left for patient regarding the appointment information. hospital manager also gave patient telephonic nurse case manager number if patient had any questions.
== END 2021-12-03 12:58 | disposition home or self-care (01) ==
PROVIDERS: Emergency Provider Physician Assistant; PCP Clinical Nurse Specialist Adult Health
DX: R07.89 Other chest pain (principal); I47.9 Paroxysmal tachycardia, unspecified
CPT/HCPCS: 71045; 80053; 83880; 84443; 84484; 84703; 85025; 85378; 93005; 99284

== ENCOUNTER → 2022-01-01 12:56 | Outpatient (BNVA) | payer MEDICAID, SELFPAY | PROVIDERS: PCP Clinical Nurse Specialist Adult Health; Visit Provider Internal Medicine | DX: R00.2 Palpitations (principal) | CPT/HCPCS: 99203; 99204 ==

== ENCOUNTER 2022-02-04 11:17 | Outpatient (CLI) | payer MEDICAID, SELFPAY ==
[2022-02-05 14:42] LABS: Lyme AB Screen <0.90 index
[2022-02-05 16:48] LABS: Egg White (F1) Ige <0.10 kU/L; Egg White Class 0; Immunoglobulin E 17 kU/L (<OR=114); Maize Corn Class 0; Maize/Corn (F8) Ige <0.10 kU/L; Oat (F7) Ige <0.10 kU/L; Oat Class 0; Pork Class 0/1; Potato (F35) Ige <0.10 kU/L; Potato Class 0; Rye (F5) Ige <0.10 kU/L; Rye Class 0; Soybean (F14) Ige <0.10 kU/L; Soybean Class 0; Tomato (F25) Ige <0.10 kU/L; Tomato Class 0; Wheat (F4) Ige <0.10 kU/L; Wheat Class 0
[2022-02-07 16:51] LABS: Allergen Cacao (Chocolate) Igg 4.3 mcg/mL (<2.0); Allergen Chicken Meat Igg <2.0 mcg/mL (<2.0); Allergen Orange Igg 3.5 mcg/mL (<2.0); Barley (F6) Igg 7.9 mcg/mL (<2.0); Yeast (F45) Igg <2.0 mcg/mL (<2.0)
[2022-02-08 17:14] LABS: E. Chaffeensis AB IGG <1:64; E. Chaffeensis AB IGM <1:20
[2022-02-08 18:11] LABS: RMSF IGG NOT DETECTED; RMSF IGM NOT DETECTED
== END 2022-02-04 11:18 | disposition home or self-care (01) ==
PROVIDERS: Visit Provider Clinical Nurse Specialist Adult Health
DX: Z91.018 Allergy to other foods (principal)
CPT/HCPCS: 86003; 86618; 86666; 86757

== ENCOUNTER → 2022-02-12 12:09 | Outpatient (BNVA) | payer MEDICAID, SELFPAY | PROVIDERS: Visit Provider Internal Medicine | DX: R00.2 Palpitations (principal); R55 Syncope and collapse | CPT/HCPCS: 99214 ==

== ENCOUNTER 2022-03-04 13:32 | Emergency (ER) | payer MEDICAID, SELFPAY ==
[2022-03-04 13:51] VITALS: BP 136/93; PULSE 90; RESP 18; TEMP 37.1; O2SAT 98
--- NOTE | 2022-03-04 14:02 | XRR_ITS ---
PROCEDURE INFORMATION: Exam: XR Right Shoulder Exam date and time: 03/04/2022 2:09 PM Age: 21 years old Clinical indication: Injury or trauma; Other: Horse butted her on the right shoulder; Blunt trauma (contusions or hematomas); Injury details: Patient unable to fully lift arm for the y projection due to pain level; Additional info: Shoulder pain TECHNIQUE: Imaging protocol: XR Right shoulder. Views: 2 or more views. COMPARISON: CR XR chest 1V portable [id number] 12/03/2021 10:56 AM FINDINGS: Bones/joints: Osseous structures are intact. Negative for fracture or dislocation. Soft tissues: Normal. XR/XR shoulder RT min 2V* [id number] IMPRESSION: No acute findings.
--- NOTE | 2022-03-04 14:15 | W.ED.UPPEXIN ---
HPI - Extremity Injury (Upper) General: Chief Complaint: Extremity Injury, Upper Stated Complaint: right shoulder pain Time Seen by Provider: 03/04/22 14:02 Source: patient and family Mode of arrival: ambulatory Limitations: no limitations History of Present Illness: Patient is a nice 21-year-old female presents to ED today for evaluation of a right shoulder injury. Patient states earlier today she was head butted by her horse to the right shoulder. She has no other injuries or complaints at this time. MD complaint: injury to: right and shoulder Onset (ago): hour(s) Other Extremity Injury: Right: shoulder Other injuries: none Place: home Severity: moderate Relieving factors: immobilization Exacerbating factors: movement of extremity Context: direct blow Associated symptoms: Reports no associated symptoms; Denies neck pain or weakness in extremities Review of Systems Card: Denies: chest pain Resp: Denies: dyspnea GI: Denies: abdominal pain Musc: Reports: joint pain (R shoulder) and limited range of motion; Denies: neck pain, back pain, extremity pain, extremity swelling, joint redness or joint warmth Neuro: Denies: headache(s), numbness in extremities, weakness in extremities or sensory changes PFS ED PFSH: Medical History Psychiatric care Surgical History H/O esophagogastroduodenoscopy Status post laparoscopic cholecystectomy (03/07/21) Family History Family/Other Hypertension Denies family history of Clotting disorder Anesthesia complication Bleeding disorder Social History Smoking and tobacco status: never smoked Second hand smoke exposure: No Alcohol intake: former Lives independently: No Household members: family Marital status: Single service: No Current occupational status: student 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 [employer] History of recent travel: No Current gender identity: Female Female Reproductive History: Date of last menstrual period: 10/02/21 Physical Exam Const: COMMON NORMALS: no acute distress, patient oriented x3, no limitations, alert and well nourished GENERAL APPEARANCE: cooperative HENMT: COMMON NORMALS: normocephalic and atraumatic HEAD & SCALP: normal to inspection, normocephalic and atraumatic Neck/C-Spine: COMMON NORMALS: full ROM CERVICAL SPINE: Yes cervical ROM normal, No pain with cervical ROM, No Cervical spine tenderness, No step off deformity and No Paracervical muscle tenderness Chest: COMMONS NORMALS: normal inspection of the chest and normal palpation of entire chest wall Resp: COMMON NORMALS: normal respiratory effort and clear to auscultation bilaterally AUSCULTATION: clear to auscultation bilaterally Back/Pelvis: COMMON NORMALS: thoracic and lumbar spine normal to inspection, no thoracic nor lumbar tenderness and thoraco-lumbar ROM normal Extremity: COMMON NORMALS: capillary refill normal GENERAL: Yes normal exam except as noted RIGHT UPPER EXTREMITY: Yes shoulder joint (TTP throughout R shoulder mainly posteriorly) Right shoulder: Yes Right shoulder joint ROM exam (has flexion/abduction to about 60 degrees) and Yes Right shoulder joint neurovascular exam (normal) Neuro: COMMON NORMALS: patient oriented x3, moves all extremities, no focal motor deficits and no sensory deficits noted SENSORIUM/ORIENTATION: Yes alert Skin: COMMON NORMALS: no rashes or lesions noted GENERAL SKIN EXAM: no rashes or lesions noted TRAUMA: no lacerations or abrasions Course Vital Signs: Vital signs: Vital Signs Temperature 98.7 F 03/04/22 13:51 Pulse Rate 90 03/04/22 13:51 Respiratory Rate 16 03/04/22 14:35 Blood Pressure 136/93 03/04/22 13:51 Pulse Oximetry 98 03/04/22 13:51 MDM - Extremity Injury (Upper) Medical Decision Making XRs negative for fracture/dislocation. Will sling and have patient treat conservatively with anti-inflammatories, ice, heat, and passive/gentle ROM exercises. Recommend she follow-up with her PCP in 3 to 5 days if symptoms do not seem to be improving. Return to ED precautions given. Lab Data Radiology Impressions Shoulder X-Ray 03/04/22 14:02 IMPRESSION: No acute findings. Discharge Plan Discharge Patient Disposition: Home Clinical Impression: Injury of shoulder, right Qualifiers: Encounter type: initial encounter Qualified Code(s): S49.91XA - Unspecified injury of right shoulder and upper arm, initial encounter Condition: Stable Prescriptions: New ibuprofen 800 mg tablet 800 mg PO Q8H PRN (Reason: pain) Qty: 20 0RF ondansetron 4 mg tablet,disintegrating 4 mg PO Q8H PRN (Reason: nausea and vomiting) Qty: 14 0RF tramadol 50 mg tablet 50 mg PO Q6H PRN (Reason: pain) Qty: 10 0RF No Action sertraline 25 mg tablet 50 mg PO DAILY 0RF norgestimate-ethinyl estradiol [Tri-Sprintec (28)] 0.18/0.215/0.25 mg-35 mcg (28) tablet 1 tab PO DAILY 0RF Linzess 72 mcg capsule 72 mcg PO DAILY Qty: 30 3RF Discharge Orders: Discharge ED (Routine); Ordered 03/04/22 Ordered By: Alessia Baptiste Coding Level of Care Code ED Waiter/Waitress First Class for Gertrudis Rosas
[2022-03-04 14:35] VITALS: RESP 16
[2022-03-04] MEDS: ketorolac 30 mg/mL INJ IM (14:35)
[2022-03-04] MEDS: morphine 4 mg/mL SDV 1 mL IM (14:35)
== END 2022-03-04 16:26 | disposition home or self-care (01) ==
PROVIDERS: Emergency Provider Physician Assistant
DX: S49.91XA Unspecified injury of right shoulder and upper arm, initial encounter (principal); W55.12XA Struck by horse, initial encounter
CPT/HCPCS: 73030; 96372; 99283; J1885; J2270

== ENCOUNTER 2022-05-10 20:50 | Emergency (ER) | payer MEDICAID, SELFPAY ==
[2022-05-10 21:12] VITALS: BP 143/98; PULSE 118; RESP 18; TEMP 37.1; O2SAT 99
--- NOTE | 2022-05-10 21:51 | ED_ITS ---
HPI - Allergic Reaction General: Chief complaint: Nausea/Vomiting/Diarrhea Stated complaint: N\V Mosquito Bites Swollen Time Seen by Provider: 05/10/22 21:42 History of Present Illness: HPI narrative: Patient is a 21-year-old female who comes to the ED with allergic reaction. Patient was just diagnosed with alpha gal in the past couple weeks. Patient had some mosquito bites just prior to arrival. She then began breaking out in hives and having nausea and vomiting. Patient also describes feeling some itchiness in her throat and her voice is changed a little. Patient took a dose of Benadryl before coming to the ED. Denies any tongue swelling, lip swelling, throat tightness or trouble breathing. Associated symptoms: Reports nausea and vomiting; Deny abdominal pain or tongue swelling Review of Systems Const: Denies: fever(s), chills or fatigue Eyes: Denies: change in vision or eye discomfort ENMT: Denies: throat pain, odynophagia, nasal discharge or nasal congestion Card: Denies: chest pain, palpitations, edema, swelling of feet/ankles, dysp annamaria on exertion or orthopnea Resp: Denies: dyspnea, productive cough or non-productive cough GI: Reports: nausea and vomiting; Denies: abdominal pain, diarrhea, constipation or hematochezia : Denies: flank pain, dysuria or hematuria Musc: Denies: neck pain, back pain or extremity swelling Skin/Breast: Reports: rash (Pruritic rash surrounding mosquito bites) and pruritus; Denies: new lesions Neuro: Denies: headache(s), numbness in extremities or weakness in extremities All/Imm: Reports: urticaria and throat swelling (Throat feels itchy); Denies: tongue swelling or acute wheezing PFSH ED PFSH: Medical History Psychiatric care Surgical History H/O esophagogastroduodenoscopy Status post laparoscopic cholecystectomy (03/07/21) Family History Family/Other Hypertension Denies family history of Clotting disorder Anesthesia complication Bleeding disorder Social History Smoking and tobacco status: never smoked Second hand smoke exposure: No Smoking risk assessment/counseling performed?: No Alcohol intake: former Year of sobriety/quit date alcohol: 2020 Desire information about alcohol rehabilitation?: No Counseling given: No Lives independently: No Household members: family Marital status: Single service: No Current occupational status: student 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 [employer] History of recent travel: No Current gender identity: Female Female Reproductive History: Date of last menstrual period: 10/02/21 Physical Exam Const: COMMON NORMALS: patient oriented x3 and alert GENERAL APPEARANCE: cooperative HENMT: COMMON NORMALS: normocephalic HEAD & SCALP: normocephalic MOUTH: Normal oral and palatal mucosa present, lip normal and tongue normal THROAT: posterior oropharynx normal and uvula midline Neck/C-Spine: COMMON NORMALS: supple GENERAL: Yes normal visual inspection Resp: COMMON NORMALS: normal respiratory effort, No retractions, No use of accessory muscles and clear to auscultation bilaterally AUSCULTATION: clear to auscultation bilaterally Cardio: COMMON NORMALS: regular rate, regular rhythm, S1 normal heart sound present, S2 normal heart sound present, No gallops present (Cardio), No clicks present (Cardio), No murmurs present (Cardio) and Peripheral pulses 2+ throughout RATE: regular rate RHYTHM: regular rhythm HEART SOUNDS: S1 normal heart sound present and S2 normal heart sound present PERIPHERAL PULSES: Peripheral pulses 2+ throughout GI: COMMON NORMALS: Normal to inspection, nondistended, normoactive bowel sounds present, Soft to palpation, non-tender and no masses PALPATION: Yes Soft to palpation : COMMON NORMALS: Yes no CVA tenderness BLADDER/KIDNEY EXAM: Yes no CVA tenderness Back/Pelvis: COMMON NORMALS: no CVA tenderness Extremity: COMMON NORMALS: normal to inspection Neuro: COMMON NORMALS: patient oriented x3 SENSORIUM/ORIENTATION: Yes alert GAIT: Yes Normal gait present Skin: NARRATIVE SKIN EXAM: Urticarial rash throughout body and especially surrounding mosquito bites. GENERAL SKIN EXAM: dry skin Course ED course: After patient received meds her allergic reaction symptoms improved greatly within 20 minutes afterwards. Her rash has completely resolved and she says her other symptoms have resolved as well. Vital Signs: Vital signs: Vital Signs Temperature 98.7 F 05/10/22 21:12 Pulse Rate 80 05/11/22 00:43 Respiratory Rate 16 05/11/22 00:43 Blood Pressure 144/70 05/11/22 00:43 Pulse Oximetry 98 05/11/22 00:43 Oxygen Delivery Me thod 05/10/22 21:12 MDM - Allergic Reaction Medical Decision Making Patient is a 21-year-old female who comes to the ED with allergic reaction. Patient was just diagnosed with alpha gal in the past couple weeks. Patient had some mosquito bites just prior to arrival. She then began breaking out in hives and having nausea and vomiting. Patient also describes feeling some itchiness in her throat and her voice is changed a little. Patient took a dose of Benadryl before coming to the ED. Denies any tongue swelling, lip swelling, t hroat tightness or trouble breathing. Vital stable. Patient appears nontoxic and in no acute distress. No lip or tongue swelling noted. Lungs are clear to auscultation bilaterally. CBC and CMP are unremarkable. Patient was given epi, IV Solu-Medrol and famotidine patient after meds patient's symptoms resolved. She was monitored for over an hour and a half and was doing well and had no reoccurring symptoms. She was stable for discharge home. She is diagnosed with allergic reaction and sent home with a prescription for EpiPen's and prednisone. Told to follow-up with PCP in the next week for reevaluation. Return to ED precautions given. Patient understood and agreed with plan. Lab Data I reviewed the patient's lab results. : 05/10/22 22:00 05/10/22 22:00 Laboratory Results WBC 8.9 10^3/uL (4.0-10.0) 05/10/22 22:00 RBC 4.26 10^6/uL (4.1-5.3) 05/10/22 22:00 Hgb 12.5 g/dL (11.5-15.3) 05/10/22 22:00 Hct 38.6 % (37.0-47.0) 05/10/22 22:00 MCV 90.6 fl (81-99) 05/10/22 22:00 MCH 29.3 pg (28.0-34.0) 05/10/22 22:00 MCHC 32.4 g/dL (30.0-36.0) 05/10/22 22:00 RDW 12.7 % (12.1-15.1) 05/10/22 22:00 Plt Count 383 10^3/cmm (130-400) 05/10/22 22:00 MPV 10.3 fL (7.4-10.4) 05/10/22 22:00 Neut % (Auto) 63.2 % 05/10/22 22:00 Lymph % (Auto) 28.3 % 05/10/22 22:00 Motley % (Auto) 7.2 % 05/10/22 22:00 Eos % (Auto) 0.6 % 05/10/22 22:00 Baso % (Auto) 0.4 % 05/10/22 22:00 Neut # (Auto) 5.63 10^3/uL (1.8-7.7) 05/10/22 22:00 Lymph # (Auto) 2.5 10^3/uL (0.8-4.8) 05/10/22 22:00 Motley # (Auto) 0.6 10^3/uL (0.2-0.9) 05/10/22 22:00 Eos # (Auto) 0.1 10^3/uL (0.0-0.8) 05/10/22 22:00 Baso # (Auto) 0.0 10^3/uL (0.0-0.1) 05/10/22 22:00 Nucleated RBC % (auto) 0 % 05/10/22 22:00 Nucleated RBCs # 0.0 /100WBC 05/10/22 22:00 Sodium 140 mmol/L (136-145) 05/10/22 22:00 Potassium 3.9 mmol/L (3.5-5.1) 05/10/22 22:00 Chloride 106 mmol/L (98-107) 05/10/22 22:00 Carbon Dioxide 22 mmol/L (22-29) 05/10/22 22:00 Anion Gap 15.9 (5-19) 05/10/22 22:00 BUN 5 mg/dL (6-20) L 05/10/22 22:00 Creatinine 0.6 mg/dL (0.5-0.9) 05/10/22 22:00 GFR Calculation 125.0 mL/min (90-130) 05/10/22 22:00 Glucose 91 mg/dL (65-115) 05/10/22 22:00 Calculated Osmolality 287 mOsm/kg (285-295) 05/10/22 22:00 Calcium 8.9 mg/dL (8.5-10.5) 05/10/22 22:00 Total Bilirubin 0.2 mg/dL (0.15-1.2) 05/10/22 22:00 AST 16 U/L (0-32) 05/10/22 22:00 ALT 7 U/L (0-33) 05/10/22 22:00 Alkaline Phosphatase 89 IU/L (35-105) 05/10/22 22:00 Total Protein 7.1 g/dL (6.6-8.7) 05/10/22 22:00 Albumin 4.1 g/dL (3.5-5.2) 05/10/22 22:00 Globulin 3.0 g/dL (1.3-4.6) 05/10/22 22:00 Lipase 51 U/L (13-60) 05/10/22 22:00 HCG, Qual Negative (Negative) 05/10/22 22:00 Urine Color Yellow (Yellow) 05/10/22 22:35 Urine Appearance Clear (CLEAR) 05/10/22 22:35 Urine pH 6 (5-7) 05/10/22 22:35 Ur Specific Brielle 1.010 (1.005-1.030) 05/10/22 22:35 Urine Protein Neg (Negative) 05/10/22 22:35 Urine Glucose (UA) Norm (Normal) 05/10/22 22:35 Urine Ketones Negative (Negative) 05/10/22 22:35 Urine Blood 3+ (Negative) H 05/10/22 22:35 Urine Nitrate Negative (Negative) 05/10/22 22:35 Urine Bilirubin Neg (Negative) 05/10/22 22:35 Urine Urobilinogen Neg mg/dL (Negative) 05/10/22 22:35 Ur Leukocyte Esterase Negative (Negative) 05/10/22 22:35 Urine RBC 5-10 /hpf (0-2) H 05/10/22 22:35 Urine WBC 0-4 /hpf (0-5) H 05/10/22 22:35 Ur Squamous Epith Cells 10-15 /hpf (0-5) H 05/10/22 22:35 Amorphous Sediment Not Reportable 05/10/22 22:35 Urine Bacteria Trace /hpf (NONE) 05/10/22 22:35 Discharge Plan Discharge Patient Disposition: Home Clinical Impression: Allergic reaction Qualifiers: Encounter type: initial encounter Qualified Code(s): T78.40XA - Allergy, unspecified, initial encounter Condition: Stable Prescriptions: New EpiPen 2-Celso 0.3 mg/0.3 mL auto-injector 0.3 mg IM Q30M PRN (Reason: anaphylaxis) Qty: 2 0RF Rx Instructions: do not exceed 12 doses per 24 hrs prednisone 20 mg tablet 20 mg PO BID 3 Days Qty: 6 0RF No Action norgestimate-ethinyl estradiol [Tri-Sprintec (28)] 0.18/0.215/0.25 mg-35 mcg (28) tablet 1 tab PO DAILY diclofenac potassium 50 mg tablet 50 mg PO TID PRN trazodone 50 mg tablet 50 mg PO .HS PRN (Reason: insomnia) Qty: 30 1RF sertraline 100 mg tablet 100 mg PO DAILY Qty: 30 1RF Linzess 72 mcg capsule 72 mcg PO DAILY Qty: 30 3RF ibuprofen 800 mg tablet 800 mg PO Q8H PRN (Reason: pain) Qty: 20 0RF ondansetron 4 mg tablet,disintegrating 4 mg PO Q8H PRN (Reason: nausea and vomiting) Qty: 14 0RF Discharge Orders: Discharge ED (Routine); Ordered 05/10/22 Ordered By: Derek Alvarez Referrals: Rob Pires SHOE COBBLER [Primary Care Provider] - Discharge Diet: Regular Discharge Activity: Increase activity as tolerated Patient Instructions: Allergic Reaction Activity Restrictions/Additional Instructions: Follow-up with medical provider as directed in the next 5 to 7 days for reevaluation. Take medications as prescribed. Return to the ER or your medical provider if condition worsens. Please read and understand discharge instructions. Thank you for choosing [facility] for your healthcare needs today. Please realize this is an emergency room and that we are providing you with a m edical screening exam and this may not be complete and all inclusive of all the testing and or work up that you may need to determine your ailment or severity of your illness. It is very important that you follow up as instructed or that you return to the Emergency Department should you have concerns or if your condition changes or worsens in any way. Coding Level of Care Code ED Correctional Guard for Chg Fwd Exam Comprehensive
[2022-05-10 22:11] LABS: Basophils % 0.4 %; Eosinophils # 0.1 10^3/uL (0.0-0.8); Eosinophils % 0.6 %; Hematocrit 38.6 % (37.0-47.0); Hemoglobin 12.5 g/dL (11.5-15.3); Lymphocytes # 2.5 10^3/uL (0.8-4.8); Lymphocytes % 28.3 %; Mean Corpuscular HGB Conc 32.4 g/dL (30.0-36.0); Mean Corpuscular Hemoglobin 29.3 pg (28.0-34.0); Mean Corpuscular Volume 90.6 fl (81-99); Mean Platelet Volume 10.3 fL (7.4-10.4); Monocytes # 0.6 10^3/uL (0.2-0.9); Monocytes % 7.2 %; Neutrophils # 5.63 10^3/uL (1.8-7.7); Neutrophils % 63.2 %; Nucleated Red Blood Cells % 0 %; Platelet Count 383 10^3/cmm (130-400); Red Blood Count 4.26 10^6/uL (4.1-5.3); Red Cell Distribution Width 12.7 % (12.1-15.1); White Blood Count 8.9 10^3/uL (4.0-10.0)
[2022-05-10] MEDS: EPINEPHrine 1 mg/mL INJ 0.3 MG IM (22:16)
[2022-05-10] MEDS: ondansetron 2 mg/ML SDV 2 mL 4 MG IVP (22:18)
[2022-05-10 22:31] LABS: Alanine Aminotransferase 7 U/L (0-33); Albumin Level 4.1 g/dL (3.5-5.2); Alkaline Phosphatase 89 IU/L (35-105); Blood Urea Nitrogen 5 mg/dL (6-20); Calcium 8.9 mg/dL (8.5-10.5); Carbon Dioxide 22 mmol/L (22-29); Chloride 106 mmol/L (98-107); Glucose 91 mg/dL (65-115); Lipase 51 U/L (13-60); Osmolality Calculated 287 mOsm/kg (285-295); Sodium 140 mmol/L (136-145); Total Bilirubin 0.2 mg/dL (0.15-1.2); Total Protein 7.1 g/dL (6.6-8.7)
[2022-05-10 22:32] LABS: Anion Gap 15.9 (5-19); Aspartate Amino Transferase 16 U/L (0-32); Potassium 3.9 mmol/L (3.5-5.1)
[2022-05-10 22:36] LABS: HCG, Serum Qual Negative (Negative)
[2022-05-10] MEDS: sodium chloride 0.9% 1,000 ML 999 ML IV (22:38)
[2022-05-10] MEDS: famotidine 20 mg/2 mL INJ 40 MG IVP (22:42)
[2022-05-11 00:35] VITALS: BP 144/70; PULSE 80; RESP 16; O2SAT 98
[2022-05-11 00:43] VITALS: BP 144/70; PULSE 80; RESP 16; O2SAT 98
[2022-05-11 00:47] LABS: Bilirubin Urine Neg (Negative); Blood Urine 3+ (Negative); Glucose Urine UA Norm (Normal); Ketones Urine Negative (Negative); Leukocyte Esterase Urine Negative (Negative); Nitrate Urine Negative (Negative); Protein Urine Neg (Negative); Urine Appearance Clear (CLEAR); Urine Color Yellow (Yellow); Urobilinogen Urine Neg (Negative); pH Urine 6 (5-7)
[2022-05-11 00:48] LABS: Add Urine Culture? No; Add Urine Microscopic? YES; Bacteria Urine TRACE /hpf; WBC Urine 0-4 /hpf (0-5)
== END 2022-05-11 00:45 | disposition home or self-care (01) ==
PROVIDERS: Emergency Provider Physician Assistant; PCP Clinical Nurse Specialist Adult Health
DX: T78.40XA Allergy, unspecified, initial encounter (principal)
CPT/HCPCS: 80053; 81001; 83690; 84703; 85025; 96361; 96372; 96374; 96375; 99284; J0171; J2405; J2930; J3490; J7030

== ENCOUNTER 2022-07-03 14:42 | Emergency (ER) | payer MEDICAID, SELFPAY ==
[2022-07-03] VITALS (7 sets, daily range): BP systolic 123–158; BP diastolic 72–95; PULSE 107–127; RESP 16–22; TEMP 36.6; O2SAT 99–100; BMI 29.0
--- NOTE | 2022-07-03 15:15 | XR_ITS ---
WS: [id number] Exam: XR chest 1V portable [id number] Date/Time of Exam: 07/03/2022 3:22 PM Reason For Exam: dyspnea/cough Comparison 12/03/2021. Findings: The lungs are clear and fully expanded. Costophrenic angles are sharp. No infiltrates. Bronchovascula r relief appears normal. Cardiac silhouette is unremarkable. Bony elements are intact. XR/XR chest 1V portable [id number] IMPRESSION: Unremarkable chest radiograph.
[2022-07-03] MEDS: diphenhydrAMINE 50 mg/mL SDV 1mL IVP (15:34)
[2022-07-03 15:38] LABS: Basophils % 0.4 %; Eosinophils % 0.3 %; Hematocrit 43.4 % (37.0-47.0); Hemoglobin 13.6 g/dL (11.5-15.3); Lymphocytes # 2.1 10^3/uL (0.8-4.8); Lymphocytes % 22.8 %; Mean Corpuscular HGB Conc 31.3 g/dL (30.0-36.0); Mean Corpuscular Hemoglobin 29.5 pg (28.0-34.0); Mean Corpuscular Volume 94.1 fl (81-99); Mean Platelet Volume 9.8 fL (7.4-10.4); Monocytes # 0.5 10^3/uL (0.2-0.9); Monocytes % 5.4 %; Neutrophils # 6.54 10^3/uL (1.8-7.7); Neutrophils % 70.7 %; Nucleated Red Blood Cells % 0 %; Platelet Count 408 10^3/cmm (130-400); Red Blood Count 4.61 10^6/uL (4.1-5.3); Red Cell Distribution Width 13.3 % (12.1-15.1); White Blood Count 9.3 10^3/uL (4.0-10.0)
--- NOTE | 2022-07-03 15:44 | W.ED.ALLEREA ---
HPI - Allergic Reaction General: Chief complaint: Allergic Reaction Stated complaint: SOB alergic reaction Source: patient Mode of arrival: ambulatory History of Present Illness: HPI narrative: 21-year-old female presents emergency room complaining and she had an allergic reaction. She states she has alpha gal she took her EpiPen has tachycardia. Her breathing does feel better but she feels very jittery. No difficulty with swallowing she is very hoarse and has difficulty speaking on initial presentation. Some nausea no vomiting. No chest pain or tightness. MD complaint: allergic reaction Onset (ago): minute(s) Exposure: food Known history of allergy to: Patient reports a history of alpha gal allergy Associated symptoms: Reports abdominal pain, dizziness, hoarseness and nausea; Deny difficulty breathing, dysphagia, facial swelling, lip swelling, rash, tongue swelling or vomiting Severity: moderate Treatment prior to arrival: epinephrine Review of Systems Const: Denies: fever(s), chills, body aches, change in appetite, fatigue or malaise ENMT: Reports: hoarseness Card: Denies: chest pain, palpitations, irregular heart rhythm, edema, dyspnea on exertion or orthopnea Resp: Denies: dyspnea, productive cough, non-productive cough, wheezing or stridor GI: Reports: abdominal pain and nausea; Denies: vomiting or dysphagia : Denies: flank pain, difficulty voiding, dysuria, urinary frequency or urinary urgency Skin/Breast: Denies: rash or pruritus Neuro: Reports: dizziness All/Imm: Denies: tongue swelling or facial swelling PFSH ED PFSH: Medical History Psychiatric care Surgical History H/O esophagogastroduodenoscopy Status post laparoscopic cholecystectomy (03/07/21) Family History Family/Other Hypertension Denies family history of Clotting disorder Anesthesia complication Bleeding disorder Social History (Updated 06/03/22 @ 10:07 by Isra Cole LPN) Smoking and tobacco status: never smoked Second hand smoke exposure: No Smoking risk assessment/counseling performed?: No Alcohol intake: former Year of sobriety/quit date alcohol: 2020 Desire information about alcohol rehabilitation?: No Counseling given: No Desire information about substance/drug rehabilitation?: No Counseling given: No Lives independently: No Household members: family Marital status: Single service: No Current occupational status: student 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 [employer] History of recent travel: No Current gender identity: Female Female Reproductive History: Date of last menstrual period: 10/02/21 Physical Exam Const: GENERAL APPEARANCE: cooperative and comfortable ORIENTATION/CONSCIOUSNESS: Yes awake, Yes oriented to person, Yes oriented to place and Yes oriented to time HENMT: COMMON NORMALS: normocephalic, atraumatic and hearing grossly normal bilaterally HEAD & SCALP: normocephalic and atraumatic Resp: COMMON NORMALS: normal respiratory effort, No retractions, No use of accessory muscles and clear to auscultation bilaterally AUSCULTATION: clear to auscultation bilaterally Cardio: COMMON NORMALS: regular rate, regular rhythm and No murmurs present (Cardio) RATE: regular rate RHYTHM: regular rhythm GI: COMMON NORMALS: Soft to palpation and No hepatosplenomegaly present AUSCULTATION: Yes normoactive bowel sounds PALPATION: Yes Soft to palpation, No Tenderness to palpation present (GI), No Guarding due to palpation present (GI) and Yes No hepatosplenomegaly present Extremity: COMMON NORMALS: normal to inspection, capillary refill normal, no clubbing, cyanosis or edema, no calf tenderness and no pedal edema Neuro: SENSORIUM/ORIENTATION: Yes oriented to person, Yes oriented to place and Yes oriented to time Skin: COMMON NORMALS: no rashes or lesions noted GENERAL SKIN EXAM: no rashes or lesions noted Course Vital Signs: Vital signs: Vital Signs Temperature 97.8 F 07/03/22 14:51 Pulse Rate 107 H 07/03/22 18:08 Respiratory Rate 20 H 07/03/22 18:08 Blood Pressure 123/72 07/03/22 18:08 Pulse Oximetry 99 07/03/22 18:08 Oxygen Delivery Me thod 07/03/22 18:08 MDM - Allergic Reaction Medical Decision Making Patient tachycardic on arrival but has no wheezing no rhonchi no facial swelling or oropharyngeal swelling or edema. She is monitored for period time tachycardia. She is given Benadryl and Solu-Medrol. She is feeling better hoarseness has resolved will discharge home on a steroid taper antihistamines to use as needed Medical Records I reviewed the patient's medical records. Lab Data I reviewed the patient's lab results. : 07/03/22 15:30 07/03/22 15:30 Radiology Impressions Chest X-Ray 07/03/22 15:15 IMPRESSION: Unremarkable chest radiograph. Laboratory Results WBC 9.3 10^3/uL (4.0-10.0) 07/03/22 15: RBC 4.61 10^6/uL (4.1-5.3) 07/03/22 15: Hgb 13.6 g/dL (11.5-15.3) 07/03/22 15:30 Hct 43.4 % (37.0-47.0) 07/03/22 15: MCV 94.1 fl (81-99) 07/03/22 15: MCH 29.5 pg (28.0-34.0) 07/03/22 15: MCHC 31.3 g/dL (30.0-36.0) 07/03/22 15: RDW 13.3 % (12.1-15.1) 07/03/22 15: Plt Count 408 10^3/cmm (130-400) H 07/03/22 15:30 MPV 9.8 fL (7.4-10.4) 07/03/22 15: Neut % (Auto) 70.7 % 07/03/22 15:30 Lymph % (Auto) 22.8 % 07/03/22 15:30 Porter % (Auto) 5.4 % 07/03/22 15:30 Eos % (Auto) 0.3 % 07/03/22 15: Baso % (Auto) 0.4 % 07/03/22 15:30 Neut # (Auto) 6.54 10^3/uL (1.8-7.7) 07/03/22 15:30 Lymph # (Auto) 2.1 10^3/uL (0.8-4.8) 07/03/22 15:30 Porter # (Auto) 0.5 10^3/uL (0.2-0.9) 07/03/22 15:30 Eos # (Auto) 0.0 10^3/uL (0.0-0.8) 07/03/22 15:30 Baso # (Auto) 0.0 10^3/uL (0.0-0.1) 07/03/22 15:30 Nucleated RBC % (auto) 0 % 07/03/22 15:30 Nucleated RBCs # 0.0 /100WBC 07/03/22 15:30 Sodium 139 mmol/L (136-145) 07/03/22 15:30 Potassium 4.4 mmol/L (3.5-5.1) 07/03/22 15:30 Chloride 105 mmol/L (98-107) 07/03/22 15:30 Carbon Dioxide 21 mmol/L (22-29) L 07/03/22 15:30 Anion Gap 17.4 (5-19) 07/03/22 15:30 BUN 5 mg/dL (6-20) L 07/03/22 15:30 Creatinine 0.5 mg/dL (0.5-0.9) 07/03/22 15:30 GFR Calculation 154.3 mL/min (90-130) H 07/03/22 15:30 Glucose 159 mg/dL (65-115) H 07/03/22 15:30 Calculated Osmolality 289 mOsm/kg (285-295) 07/03/22 15:30 Calcium 9.2 mg/dL (8.5-10.5) 07/03/22 15:30 Total Bilirubin 0.2 mg/dL (0.15-1.2) 07/03/22 15:30 AST 13 U/L (0-32) 07/03/22 15:30 ALT 6 U/L (0-33) 07/03/22 15:30 Alkaline Phosphatase 84 U/L (35-105) 07/03/22 15:30 Total Protein 7.6 g/dL (6.6-8.7) 07/03/22 15:30 Albumin 4.3 g/dL (3.5-5.2) 07/03/22 15:30 Globulin 3.3 g/dL (1.3-4.6) 07/03/22 15:30 Discharge Plan Discharge Patient Disposition: Home Clinical Impression: Allergic reaction Condition: Stable Prescriptions: New prednisone 20 mg tablet 20 mg PO TID Qty: 15 0RF Rx Instructions: 1 p.o. 3 times daily x3 days, 1 p.o. twice daily x2 days, 1 p.o. daily x2 days hydroxyzine HCl 25 mg tablet 25 mg PO Q6H PRN (Reason: allergy symptoms) Qty: 14 0RF No Action epinephrine [EpiPen 2-Celso] 0.3 mg/0.3 mL auto-injector 0.3 mg IM Q30M PRN (Reason: anaphylaxis) Qty: 2 0RF DILT-XR 120 mg Capsule,Ext.Rel 24h Degradable 120 mg PO QAM cyanocobalamin (vitamin B-12) 1,000 mcg/mL solution 1,000 mcg IM Q30D Seasonique 0.15 mg-30 mcg (84)/10 mcg (7) Tablets,Dose Pack,3 Month 1 tab PO BEDTIME Vitamin D3 25 mcg (1,000 unit) Tablet 25 mcg PO DAILY sertraline 100 mg tablet 100 mg PO QAM Linzess 72 mcg capsule 72 mcg PO QAM trazodone 100 mg tablet 50 mg PO BEDTIME Discharge Orders: Discharge ED (Routine); Ordered 07/03/22 Ordered By: Robert Kwon Referrals: Rob Pires, PACKAGING SALES CONSULTANT [Primary Care Provider] - Discharge Diet: Usual diet Discharge Activity: Increase activity as tolerated Patient Instructions: Opioid Safety, Pain Management Coding Level of Care Code ED Chemical Research Technician for Gertrudis Rosas
[2022-07-03] MEDS: sodium chloride 0.9% 1,000 ML 999 ML IV ×2 (15:55→17:23)
[2022-07-03 16:00] LABS: Alanine Aminotransferase 6 U/L (0-33); Albumin Level 4.3 g/dL (3.5-5.2); Alkaline Phosphatase 84 U/L (35-105); Aspartate Amino Transferase 13 U/L (0-32); Blood Urea Nitrogen 5 mg/dL (6-20); Calcium 9.2 mg/dL (8.5-10.5); Carbon Dioxide 21 mmol/L (22-29); Chloride 105 mmol/L (98-107); Globulin 3.3 g/dL (1.3-4.6); Glomerular Filtration Rate 154.3 mL/min (90-130); Glucose 159 mg/dL (65-115); Osmolality Calculated 289 mOsm/kg (285-295); Sodium 139 mmol/L (136-145); Total Bilirubin 0.2 mg/dL (0.15-1.2); Total Protein 7.6 g/dL (6.6-8.7)
[2022-07-03 16:02] LABS: Anion Gap 17.4 (5-19); Potassium 4.4 mmol/L (3.5-5.1)
== END 2022-07-03 18:22 | disposition home or self-care (01) ==
PROVIDERS: Emergency Provider Family Medicine; PCP Clinical Nurse Specialist Adult Health
DX: T78.40XA Allergy, unspecified, initial encounter (principal)
CPT/HCPCS: 71045; 80053; 85025; 96361; 96374; 96375; 99284; J1200; J2930; J7030

== ENCOUNTER 2022-07-11 07:20 | Outpatient (CLI) | payer MEDICAID, SELFPAY ==
--- NOTE | 2022-07-11 | US_ITS ---
WS: [id number] ULTRASOUND BILATERAL BREAST HISTORY: FIBROCYSTIC BREAST DISEASE COMPARISON: None available. TECHNIQUE: 2-D and Doppler. Ultrasound is directed in each breast in the area the palpable abnormalities. RIGHT breast at 9:00, 1:00, 2:00, 3:00 and 4:00. No abnormalities. LEFT breast at 9:00, 10:00, 4:00, 5:00, 6:00 demonstrates no abnormalities. US/US breast BI limited* [id number] IMPRESSION: BI-RADS: 1-Negative FOLLOW-UP: See Report Normal bilateral breast ultrasound in the area of palpable abnormalities. No ad ditional imaging follow-up necessary.
== END 2022-07-11 07:21 | disposition home or self-care (01) ==
LOC: RAD 07:21
PROVIDERS: PCP Family Medicine; Visit Provider Family Medicine
DX: N60.39 Fibrosclerosis of unspecified breast (principal)
CPT/HCPCS: 76642

== ENCOUNTER 2023-03-10 02:17 | Emergency (ER) | payer MEDICAID, SELFPAY ==
[2023-03-10] VITALS (10 sets, daily range): BP systolic 119–149; BP diastolic 82–108; PULSE 95–122; RESP 12–20; TEMP 36.9; O2SAT 97–100; BMI 27.6
[2023-03-10 02:54] LABS: Basophils # 0.1 10^3/uL (0.0-0.1); Basophils % 0.3 %; Eosinophils # 0.1 10^3/uL (0.0-0.8); Eosinophils % 0.7 %; Hematocrit 44.7 % (37.0-47.0); Hemoglobin 14.1 g/dL (11.5-15.3); Lymphocytes % 20.3 %; Mean Corpuscular HGB Conc 31.5 g/dL (30.0-36.0); Mean Corpuscular Hemoglobin 28.4 pg (28.0-34.0); Mean Corpuscular Volume 90.1 fl (81-99); Monocytes # 0.7 10^3/uL (0.2-0.9); Monocytes % 4.8 %; Neutrophils # 10.91 10^3/uL (1.8-7.7); Neutrophils % 73.4 %; Nucleated Red Blood Cells % 0 %; Platelet Count 369 10^3/cmm (130-400); Red Blood Count 4.96 10^6/uL (4.1-5.3); Red Cell Distribution Width 12.9 % (12.1-15.1); White Blood Count 14.9 10^3/uL (4.0-10.0)
--- NOTE | 2023-03-10 02:59 | CTR_ITS ---
PROCEDURE INFORMATION: Exam: CT Abdomen And Pelvis Without Contrast Exam date and time: 03/10/2023 3:11 AM Age: 22 years old Clinical indication: Pain and abnormal findings; Abnormal lab test; Elevated wbc; Abdominal pain; Localized; Right lower quadrant (rlq); Prior surgery; Surgery date: 6+ months; Surgery type: Gb; Patient HX: Rlq pain with wbc of 14k TECHNIQUE: Imaging protocol: Computed tomography of the abdomen and pelvis without contrast. Radiation optimization: All CT scans at this facility use at least one of these dose optimization techniques: automated exposure control; mA and/or kV adjustment per patient size (includes targeted exams where dose is matched to clinical indication); or iterative reconstruction. REPORTING DATA: Count of CT and Cardiac NM exams in prior 12 months: This patient has received 0 known CTs and 0 known cardiac nuclear medicine studies in the 12 months prior to the current study. COMPARISON: CT abdomen pelvis w con* [id number] 10/08/2021 10:54 PM RADIATION DOSE METRICS: Total DLP (mGy-cm): 628.44 FINDINGS: Liver: Normal. No mass. Gallbladder and bile ducts: Cholecystectomy. Nondilated biliary system. Pancreas: Normal. No ductal dilation. Spleen: Normal. No splenomegaly. Adrenal glands: Normal. No mass. Kidneys and ureters: Normal. No hydronephrosis. Stomach and bowel: Unremarkable. No obstruction. No mucosal thickening. Appendix: Normal appendix. Intraperitoneal space: Unremarkable. No free air. No significant fluid collection. Vasculature: Unremarkable. No abdominal aortic aneurysm. Lymph nodes: Unremarkable. No enlarged lymph nodes. Urinary bladder: Unremarkable as visualized. Reproductive: Unremarkable as visualized. Bones/joints: Unremarkable. No acute fracture. Soft tissues: Unremarkable. CT/CT kidney stone [id number] IMPRESSION: Negative for acute abdominopelvic pathology.
[2023-03-10 03:02] LABS: HCG, Serum Qual Negative (Negative)
[2023-03-10 03:12] LABS: Alanine Aminotransferase 9 U/L (0-33); Albumin Level 4.6 g/dL (3.5-5.2); Alkaline Phosphatase 117 U/L (35-105); Anion Gap 14.9 (5-19); Aspartate Amino Transferase 14 U/L (0-32); Blood Urea Nitrogen 7 mg/dL (6-20); C Reactive Protein 3.5 mg/L (0.0-4.9); Calcium 9.1 mg/dL (8.5-10.5); Carbon Dioxide 26 mmol/L (22-29); Chloride 101 mmol/L (98-107); Globulin 3.1 g/dL (1.3-4.6); Glomerular Filtration Rate 152.9 mL/min (90-130); Glucose 114 mg/dL (65-115); Lipase 49 U/L (13-60); Osmolality Calculated 285 mOsm/kg (285-295); Potassium 3.9 mmol/L (3.5-5.1); Sodium 138 mmol/L (136-145); Total Bilirubin 0.2 mg/dL (0.15-1.2); Total Protein 7.7 g/dL (6.6-8.7)
[2023-03-10 03:13] LABS: Bilirubin Urine Neg (Negative); Blood Urine Neg (Negative); Glucose Urine UA Norm (Normal); Ketones Urine 1+ (Negative); Nitrate Urine Negative (Negative); Protein Urine Trace (Negative); Urine Appearance Clear (CLEAR); Urine Color Yellow (Yellow); Urobilinogen Urine Norm (Negative); pH Urine 5 (5-7)
[2023-03-10 03:14] LABS: Add Urine Microscopic? YES; Bacteria Urine 1+ /hpf; Leukocyte Esterase Urine Trace (Negative); Mucus Urine 1+ /hpf; RBC Urine 0-4 /hpf (0-2); WBC Urine 0-4 /hpf (0-5)
[2023-03-10] MEDS: ondansetron 2 mg/ML SDV 2 mL 4 MG IVP (03:21)
[2023-03-10] MEDS: HYDROmorphone 1 mg/mL INJ 1 mL IVP ×2 (03:25→04:50)
--- NOTE | 2023-03-10 03:26 | W.ED.ABDPA2 ---
HPI - Abdominal Pain General: Chief Complaint: Abdominal Pain Stated Complaint: Pain Rt Side\Dizzy Time Seen by Provider: 03/10/23 02:32 Source: patient History of Present Illness: 22-year-old female with multiple allergies. She presents with right lower quadrant pain that awoke her from sleep around midnight. She states that she did not feel well yesterday, but did not have this pain. She has vomited 1 time. No fever or diarrhea. MD elicited complaint: abdominal pain Pertinent past history: other Onset (ago): hour(s) Pain Consistency: constant Location: RLQ Severity: severe Quality: stabbing and aching Radiation: none Migration to: no migration Exacerbating factors: movement Relieving factors: nothing Associated Symptoms: Reports nausea and vomiting; Denies chills, constipation, dysuria, fever(s), hematemesis, fecal incontinence and melena Related Data: Date of Last Menstrual Period: 02/18/23 Review of Systems Const: Denies: fever(s) or chills ENMT: Denies: throat pain Card: Denies: chest pain or palpitations Resp: Denies: dyspnea, productive cough or non-productive cough GI: Reports: nausea and vomiting; Denies: hematemesis, constipation, fecal incontinence or melena : Denies: flank pain or dysuria Musc: Reports: back pain (Chronic) Skin/Breast: Denies: rash PFSH ED PFSH: Medical History Psychiatric care Surgical History H/O esophagogastroduodenoscopy Status post laparoscopic cholecystectomy (03/07/21) Family History Family/Other Hypertension Denies family history of Clotting disorder Anesthesia complication Bleeding disorder Social History Smoking and tobacco status: never smoked Second hand smoke exposure: No Smoking risk assessment/counseling performed?: No Alcohol intake: former Year of sobriety/quit date alcohol: 2020 Desire information about alcohol rehabilitation?: No Counseling given: No Substance/Drug Use: never Desire information about substance/drug rehabilitation?: No Counseling given: No Lives independently: No Household members: family Marital status: Single service: No Current occupational status: student 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 [employer] Current gender identity: Female Female Reproductive History: Date of last menstrual period: 02/18/23 Physical Exam Const: COMMON NORMALS: no acute distress GENERAL APPEARANCE: cooperative and ill appearing (Mildly); not frail appearing HENMT: COMMON NORMALS: normocephalic, atraumatic and Normal external nose present HEAD & SCALP: normocephalic and atraumatic FACE & SINUS: normal facial exam and face symmetric NOSE: Normal external nose present Eye: COMMON NORMALS: Equal, round and reactive pupils present and EOMs intact bilaterally PUPIL: Yes Equal, round and reactive pupils present Neck/C-Spine: GENERAL: Yes trachea midline Chest: CHEST: Yes Symmetrical chest wall rise Resp: COMMON NORMALS: normal respiratory effort, No retractions, No use of accessory muscles and clear to auscultation bilaterally AUSCULTATION: clear to auscultation bilaterally Cardio: COMMON NORMALS: regular rate and regular rhythm RATE: regular rate RHYTHM: regular rhythm GI: COMMON NORMALS: Normal to inspection, nondistended, normoactive bowel sounds present PALPATION: Yes Tenderness to palpation present (GI) Details: RLQ Extremity: COMMON NORMALS: no pedal edema Neuro: ULISES COMA SCALE: document GCS findings Ulises coma scale eye opening: Spontaneous Ulises coma scale verbal response: Orientated Ulises coma scale motor response: Obey commands Ulises coma scale total score: 15 SENSORY EXAM: Yes extremities (intact) Psych: COMMON NORMALS: speech normal SPEECH: Yes normal speech Skin: COMMON NORMALS: no rashes or lesions noted GENERAL SKIN EXAM: no rashes or lesions noted Course Vital Signs: Vital signs: Vital Signs Temperature 98.5 F 03/10/23 02:23 Pulse Rate 122 H 03/10/23 02:23 Respiratory Rate 20 H 03/10/23 04:50 Blood Pressure 146/105 03/10/23 02:23 Pulse Oximetry 100 03/10/23 04:50 Oxygen Delivery Me thod Room Air 03/10/23 02:23 MDM - Abdominal Pain Medical Decision Making Right lower quadrant pain in a patient with a white blood cell count of 15. Urinalysis shows a normal specific gravity, no gross hematuria. CT scan read is pending. CT is negative. Pain is mildly improved after pain medication and antiemetic here. Concern over medication reaction given the new medicine gabapentin which was just prescribed and taken. 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 She is given Benadryl and dexamethasone here. She will be prescribed a short tapering course of methylprednisolone. The Benadryl did improve the heart rate from the 110s down to the 80s here. She remains normotensive. She will be allowed discharge. Lab Data 03/10/23 02:29 03/10/23 02:29 Labs/Radiology: Radiology Impressions Abdomen/Pelvis CT 03/10/23 02:59 IMPRESSION: Negative for acute abdominopelvic pathology. Laboratory Results WBC 14.9 10^3/uL (4.0-10.0) H 03/10/23 02:29 RBC 4.96 10^6/uL (4.1-5.3) 03/10/23 02:29 Hgb 14.1 g/dL (11.5-15.3) 03/10/23 02: Hct 44.7 % (37.0-47.0) 03/10/23 02: MCV 90.1 fl (81-99) 03/10/23 02: MCH 28.4 pg (28.0-34.0) 03/10/23 02:29 MCHC 31.5 g/dL (30.0-36.0) 03/10/23 02:29 RDW 12.9 % (12.1-15.1) 03/10/23 02:29 Plt Count 369 10^3/cmm (130-400) 03/10/23 02:29 MPV 10.0 fL (7.4-10.4) 03/10/23 02:29 Neut % (Auto) 73.4 % 03/10/23 02:29 Lymph % (Auto) 20.3 % 03/10/23 02:29 [place] % (Auto) 4.8 % 03/10/23 02:29 Eos % (Auto) 0.7 % 03/10/23 02:29 Baso % (Auto) 0.3 % 03/10/23 02:29 Neut # (Auto) 10.91 10^3/uL (1.8-7.7) H 03/10/23 02:29 Lymph # (Auto) 3.0 10^3/uL (0.8-4.8) 03/10/23 02:29 [place] # (Auto) 0.7 10^3/uL (0.2-0.9) 03/10/23 02:29 Eos # (Auto) 0.1 10^3/uL (0.0-0.8) 03/10/23 02:29 Baso # (Auto) 0.1 10^3/uL (0.0-0.1) 03/10/23 02:29 Nucleated RBC % (auto) 0 % 03/10/23 02: Nucleated RBCs # 0.0 /100WBC 03/10/23 02:29 Sodium 138 mmol/L (136-145) 03/10/23 02: Potassium 3.9 mmol/L (3.5-5.1) 03/10/23 02: Chloride 101 mmol/L (98-107) 03/10/23 02: Carbon Dioxide 26 mmol/L (22-29) 03/10/23 02:29 Anion Gap 14.9 (5-19) 03/10/23 02:29 BUN 7 mg/dL (6-20) 03/10/23 02:29 Creatinine 0.5 mg/dL (0.5-0.9) 03/10/23 02:29 GFR Calculation 152.9 mL/min (90-130) H 03/10/23 02:29 Glucose 114 mg/dL (65-115) 03/10/23 02:29 Calculated Osmolality 285 mOsm/kg (285-295) 03/10/23 02: Calcium 9.1 mg/dL (8.5-10.5) 03/10/23 02:29 Total Bilirubin 0.2 mg/dL (0.15-1.2) 03/10/23 02:29 AST 14 U/L (0-32) 03/10/23 02: ALT 9 U/L (0-33) 03/10/23 02:29 Alkaline Phosphatase 117 U/L (35-105) H 03/10/23 02:29 C-Reactive Protein 3.5 mg/L (0.0-4.9) 03/10/23 02: Total Protein 7.7 g/dL (6.6-8.7) 06/05/23 02:29 Albumin 4.6 g/dL (3.5-5.2) 03/10/23 02:29 Globulin 3.1 g/dL (1.3-4.6) 03/10/23 02:29 Lipase 49 U/L (13-60) 03/10/23 02:29 HCG, Qual Negative (Negative) 03/10/23 02:29 Urine Color Yellow (Yellow) 03/10/23 02:54 Urine Appearance Clear (CLEAR) 03/10/23 02:54 Urine pH 5 (5-7) 03/10/23 02:54 Ur Specific Martha 1.020 (1.005-1.030) 03/10/23 02:54 Urine Protein Trace (Negative) 03/10/23 02:54 Urine Glucose (UA) Norm (Normal) 03/10/23 02:54 Urine Ketones 1+ (Negative) H 03/10/23 02:54 Urine Blood Neg (Negative) 03/10/23 02:54 Urine Nitrate Negative (Negative) 03/10/23 02:54 Urine Bilirubin Neg (Negative) 03/10/23 02:54 Urine Urobilinogen Norm mg/dL (Negative) 03/10/23 02:54 Ur Leukocyte Esterase Trace (Negative) H 03/10/23 02:54 Urine RBC 0-4 /hpf (0-2) H 03/10/23 02:54 Urine WBC 0-4 /hpf (0-5) H 03/10/23 02:54 Ur Squamous Epith Cells 5-10 /hpf (0-5) H 03/10/23 02:54 Amorphous Sediment Not Reportable 03/10/23 02:54 Urine Bacteria 1+ /hpf (NONE) H 03/10/23 02:54 Urine Mucus 1+ /hpf 03/10/23 02:54 Discharge Plan Discharge Patient Disposition: Home Clinical Impression: Abdominal pain Condition: Stable Prescriptions: New ketorolac 10 mg tablet 10 mg PO TID PRN (Reason: pain) Qty: 10 0RF Medrol (Celso) 4 mg tablets,dose pack See Rx Instructions .ROUTE .COMPLEX Qty: 21 0RF Rx Instructions: orally per package directions No Action Linzess 145 mcg capsule 145 mcg PO DAILY Qty: 90 1RF amitriptyline 25 mg tablet 25 mg PO BID epinephrine [EpiPen 2-Celso] 0.3 mg/0.3 mL auto-injector 0.3 mg IM Q30M PRN (Reason: anaphylaxis) Qty: 2 0RF cyanocobalamin (vitamin B-12) 1,000 mcg/mL solution 1,000 mcg IM Q30D Discharge Orders: Discharge ED (Routine); Ordered 03/10/23 Ordered By: Flavio Saunders Referrals: Anthony Harrington MD [Primary Care Provider] - 1-3 days Patient Instructions: Abdominal Pain (ED), Opioid Safety, Pain Management Activity Restrictions/Additional Instructions: Return for worsening pain, vomiting liquids or medications, fever, other concerning symptoms. Consider stopping the new medication, as it could be a cause although cause is unclear. Coding Level of Care Code ED Welder Fitter Apprentice for Gertrudis Rosas
[2023-03-10] MEDS: ketorolac 30 mg/mL INJ IVP (04:46)
[2023-03-10] MEDS: dexamethasone 4 mg/mL INJ 8 MG IVP (05:49)
[2023-03-10] MEDS: diphenhydrAMINE 50 mg/mL SDV 1mL IVP (05:54)
== END 2023-03-10 06:17 | disposition home or self-care (01) ==
PROVIDERS: Emergency Provider Emergency Medicine; PCP Family Medicine
DX: R10.31 Right lower quadrant pain (principal)
CPT/HCPCS: 74176; 80053; 81001; 83690; 84703; 85025; 86140; 96374; 96375; 96376; 99285; J1100; J1170; J1200; J1885; J2405

== ENCOUNTER → 2023-11-12 14:55 | Outpatient (BNVA) | payer MEDICAID, SELFPAY | PROVIDERS: PCP Family Medicine; Visit Provider Nurse Practitioner Family | DX: Z12.4 Encounter for screening for malignant neoplasm of cervix (principal); J32.9 Chronic sinusitis, unspecified; N64.4 Mastodynia | CPT/HCPCS: 88175 ==

== ENCOUNTER 2023-11-27 13:25 | Outpatient (CLI) | payer MEDICAID, SELFPAY ==
--- NOTE | 2023-11-27 13:39 | US_ITS ---
WS: [id number] ULTRASOUND BREAST BILATERAL TECHNIQUE: Ultrasound bilateral breast focused area of concern. CLINICAL INFORMATION: MASTODYNIA COMPARISON: Ultrasound 07/31/2022 FINDINGS: Ultrasound performed in the areas of concern. RIGHT BREAST: Ultrasound RIGHT breast at the 9:00 and 3:00 positions demonstrates normal underlying p arenchymal tissue. No cystic or solid lesions. LEFT BREAST: Ultrasound LEFT breast at the 3:00 and 10:00 positions demonstrates normal underlying pa renchymal tissue. No cystic or solid lesions. IMPRESSION: BI-RADS 1 negative Recommend annual screening mammography age 40
== END 2023-11-27 13:26 | disposition home or self-care (01) ==
LOC: RAD 13:26
PROVIDERS: PCP Family Medicine; Visit Provider Nurse Practitioner Family
DX: N64.4 Mastodynia (principal); N63.0 Unspecified lump in unspecified breast
CPT/HCPCS: 76642

== ENCOUNTER 2024-10-13 12:41 | Emergency (ER) | payer MEDICAID, SELFPAY ==
[2024-10-13 13:33] VITALS: BP 122/88; PULSE 90; RESP 14; TEMP 36.7; O2SAT 98; BMI 26.5
--- NOTE | 2024-10-13 14:03 | CT_ITS ---
WS: [id number] CT HEAD NONCONTRAST HISTORY: injury TECHNIQUE: Contiguous axial imaging performed through the brain. Bone and soft tissue windows. Sagitt al and coronal reformats reviewed. All CT scans at [facility] use at least one of these dose optimization techniques: automated exposure control; mA and/or kV adjustment per patient size (includ es targeted exams where dose is matched to clinical indication); or iterative reconstruction. DLP: 1043.84 mGy.cm COMPARISON: None available. No acute intracranial hemorrhage, midline shift or mass effect. No atrophy or prior infarcts or herniation. Ventricles: Normal size with no hydrocephalus. Paranasal sinuses: As visualized are clear. Mastoid air cells: Well pneumatized. Calvarium and scalp: Skull is intact with no soft tissue edema or swelling. CT/CT head wo con* [id number] IMPRESSION: Negative head CT.
--- NOTE | 2024-10-13 15:47 | W.ED.HA ---
HPI - Headache General: Chief Complaint: Headache Stated Complaint: back left head pain due to fall Time Seen by Provider: 10/13/24 14:07 Source: patient Mode of arrival: ambulatory Limitations: no limitations History of Present Illness: Patient is a 24-year-old female who presents the emergency department complaining of head injury cold virus prior to arrival. Patient states she tripped over a call of her dogs, fell backwards struck the left occipital region. Reporting a headache, intermittent visual changes, and feeling unsteady on her feet. Also states she had a couple episodes of vomiting after this incident. She did not lose consciousness, stated that she needed help up but there was no prolonged downtime. She is not on a blood thinner. No unilateral weakness or paralysis. No seizure-like activity or behavioral changes, per family in the room. Vital stable at this time with no focal neurological deficit at time of examination. MD elicited complaint: headache Pertinent past history: recent trauma Onset (ago): hour(s) Location: occipital Severity: moderate Quality & Timing: sharp Exacerbating factors: exertion and movement of head/neck Context: recent head injury Associated symptoms: Reports nausea and vomiting; Deny chest pain, confusion, fever(s), lightheadedness or rash Treatments prior to arrival: none Related Data Previous Rx's Medication Instructions Recorded epinephrine 0.3 mg/0.3 mL 0.3 mg (0.3 mL) IM Q30M PRN 05/10/22 injection, auto-injector (EpiPen anaphylaxis #2 ea 2-Celso) amitriptyline 50 mg tablet 50 mg PO BEDTIME #30 tabs 08/25/24 Allergies Allergy/AdvReac Type Severity Reaction Status Date / Time Alpha-Gal Allergy Severe ALGY-Anaphy Verified 10/13/24 13:39 ([id number],3-Gala laxis metoprolol Allergy Severe ADR/ALGY-Pa Verified 10/13/24 13:39 lpitations acetaminophen Allergy ALGY-Swell Verified 10/13/24 13:39 [From Delsym Cough-Cold] Lip/Tongue/Throat amoxicillin Allergy ALGY-Rash Verified 10/13/24 13:39 barley Allergy ADR-Abdominal Verified 10/13/24 13:39 Pain Beef Containing Products Allergy ADR-Abdominal Verified 10/13/24 13:39 Pain cefdinir Allergy ALGY-Rash Verified 10/13/24 13:39 dextromethorphan Allergy ALGY-Swell Verified 10/13/24 13:39 [From Delsym Cough-Cold] Lip/Tongue/Throat doxylamine Allergy ALGY-Swell Verified 10/13/24 13:39 [From Delsym Cough-Cold] Lip/Tongue/Throat esomeprazole [From Nexium] Allergy rash , Verified 10/13/24 13:39 itching Iodinated Contrast Media Allergy chest pain Verified 10/13/24 13:39 shellfish derived Allergy ALGY-Swell Verified 10/13/24 13:39 Lip/Tongue/Throat red meat Allergy ADR-Abdominal Uncoded 10/13/24 13:39 Pain Review of Systems General: Reports: 10 or more systems reviewed and unremarkable except in HPI and below Const: Reports: other (Fall); Denies: fever(s), chills or fatigue Eyes: Reports: change in vision ENMT: Denies: throat pain, ear or mastoid pain or nasal discharge Card: Denies: chest pain, palpitations, swelling of feet/ankles or lightheadedness Resp: Denies: dyspnea, productive cough or wheezing GI: Reports: nausea and vomiting; Denies: abdominal pain, diarrhea or constipation : Denies: flank pain, difficulty voiding, dysuria or urinary frequency Musc: Denies: neck pain, back pain or joint pain Skin/Breast: Denies: rash Neuro: Reports: headache(s), lack of coordination and difficulty walking; Denies: numbness in extremities, weakness in extremities, confusion, behavioral changes, seizure-like activity or involuntary movements PFSH ED PFSH: Medical History Palpitations Major depressive disorder, recurrent severe without psychotic features Generalized anxiety disorder Psychiatric care Surgical History Status post laparoscopic cholecystectomy (03/07/21) H/O esophagogastroduodenoscopy Family History Family/Other Hypertension Denies family history of Clotting disorder Anesthesia complication Bleeding disorder Social History Smoking and tobacco/nicotine status: never used tobacco/nicotine Second hand smoke exposure: No Alcohol intake: former Year of sobriety/quit date alcohol: 2020 Substance/Drug Use: never Lives independently: No Household members: family Marital status: Single service: No Current occupational status: student 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 [employer] Current gender identity: Female Female Reproductive History: Date of last menstrual period: 10/11/24 Physical Exam Const: COMMON NORMALS: no acute distress, patient oriented x3 and no limitations GENERAL APPEARANCE: cooperative, comfortable and well developed ORIENTATION/CONSCIOUSNESS: Yes awake, Yes oriented to person, Yes oriented to place and Yes oriented to time HENMT: COMMON NORMALS: normocephalic, atraumatic and hearing grossly normal bilaterally HEAD & SCALP: normocephalic, atraumatic and scalp tenderness (Occipital region); no Rock's sign, no hematoma, no palpable skull fracture, no raccoon eyes and no scalp lesion FACE & SINUS: normal facial exam NOSE: no Nasal discharge present TYMPANIC MEMBRANE: other (No discharge) Eye: COMMON NORMALS: Equal, round and reactive pupils present, EOMs intact bilaterally and conjunctivae normal CONJUNCTIVA: Yes conjunctivae normal PUPIL: Yes Equal, round and reactive pupils present OTHER: Eyes track midline Neck/C-Spine: COMMON NORMALS: full ROM, supple and no JVD Resp: COMMON NORMALS: normal respiratory effort, No retractions, No use of accessory muscles and clear to auscultation bilaterally AUSCULTATION: clear to auscultation bilaterally Cardio: COMMON NORMALS: no JVD, regular rate, regular rhythm, No clicks present (Cardio), No murmurs present (Cardio) and No rub (Cardio) RATE: regular rate RHYTHM: regular rhythm GI: COMMON NORMALS: Normal to inspection, nondistended, normoactive bowel sounds present, Soft to palpation and non-tender AUSCULTATION: Yes normoactive bowel sounds PALPATION: Yes Soft to palpation RECTAL EXAM: deferred Extremity: COMMON NORMALS: normal to inspection, full ROM and capillary refill normal Neuro: COMMON NORMALS: patient oriented x3, CN's II-XII intact bilaterally, moves all extremities, no focal motor deficits and no sensory deficits noted SENSORIUM/ORIENTATION: Yes oriented to person, Yes oriented to place and Yes oriented to time COORDINATION/BALANCE: [id number] test normal and [id number] test normal MOTOR EXAM: 5/5 motor strength present throughout, Pronator motor function not present, no tremor noted, no asterixis, Motor fasciculations not present and Normal motor muscle tone present throughout COORDINATION: [id number] test normal and [id number] test normal Skin: COMMON NORMALS: no rashes or lesions noted GENERAL SKIN EXAM: no rashes or lesions noted Course Vital Signs: Vital signs: Vital Signs Temperature 98.1 F 10/13/24 13:33 Pulse Rate 90 10/13/24 13:33 Respiratory Rate 14 10/13/24 13:33 Blood Pressure 122/88 10/13/24 13:33 Pulse Oximetry 98 10/13/24 13:33 Oxygen Delivery Me thod Room Air 10/13/24 13:33 MDM - Headache Medical Decision Making No neurological deficits on exam. Head CT negative for any acute intracranial findings. Likely postconcussive syndrome discussed conservative therapy and importance of avoiding reinjury. Patient endorsed understanding, will return with any new or concerning symptoms. Lab Data Radiology Impressions Head CT 10/13/24 14:03 IMPRESSION: Negative head CT. All radiology interpretation(s) finalized by discharge Discharge Plan Discharge Patient Disposition: Home Clinical Impression: CHI (closed head injury) Qualifiers: Encounter type: initial encounter Qualified Code(s): S09.90XA - Unspecified injury of head, initial encounter Condition: Stable Prescriptions: No Action amitriptyline 50 mg tablet 50 mg PO BEDTIME Qty: 30 3RF Rx Instructions: Take one tablet at bedtime epinephrine [EpiPen 2-Celso] 0.3 mg/0.3 mL auto-injector 0.3 mg IM Q30M PRN (Reason: anaphylaxis) Qty: 2 0RF Discharge Orders: Discharge ED (Routine); Ordered 10/13/24 Ordered By: Isrrael Ordonez Referrals: Anthony Harrington MD [Primary Care Provider] - Patient Instructions: Head Injury (ED), Post Concussion Syndrome (ED) Activity Restrictions/Additional Instructions: Ibuprofen Tylenol. Avoid reinjury of head. Likely could have postconcussion syndrome, symptoms may last up to 3 weeks. Monitor for any persistence of symptoms or new neurological deficits and return to the emergency department. Drink plenty of water. Please see attached patient instructions for further education. Coding Level of Care Code ED Internist Medical Doctor Md for Gertrudis Rosas
[2024-10-13 16:41] VITALS: BP 121/86; PULSE 87; RESP 16; O2SAT 99
== END 2024-10-13 16:40 | disposition home or self-care (01) ==
PROVIDERS: Emergency Provider Physician Assistant; PCP Family Medicine
DX: S09.8XXA Other specified injuries of head, initial encounter (principal); W01.0XXA Fall on same level from slipping, tripping and stumbling without subsequent striking against object, initial encounter
CPT/HCPCS: 70450; 99284

== ENCOUNTER 2024-11-08 15:00 | Emergency (ER) | payer MEDICAID, SELFPAY ==
[2024-11-08 15:11] VITALS: BP 124/88; PULSE 93; RESP 17; TEMP 36.6; O2SAT 100; BMI 26.9
--- NOTE | 2024-11-08 16:33 | XRR_ITS ---
PROCEDURE INFORMATION: Exam: XR Right Wrist Exam date and time: 11/08/2024 4:52 PM Age: 24 years old Clinical indication: Injury or trauma; Other: Dog bite; Wrist; Right TECHNIQUE: Imaging protocol: Radiologic exam of the right wrist. Views: 3 or more views. COMPARISON: CR XR hand RT min 3V* [id number] 04/16/2023 9:45 AM FINDINGS: Bones/joints: No acute fracture or dislocation. Soft tissues: No radiopaque foreign body. Prominent thenar eminence may be artifactual. XR/XR wrist RT min 3V* [id number] IMPRESSION: No acute findings.
--- NOTE | 2024-11-08 16:35 | ED_ITS ---
HPI - Animal Bite General: Chief Complaint: Animal Bite Stated Complaint: dog bite on arm Time Seen by Provider: 11/08/24 16:26 Source: patient and family Mode of arrival: ambulatory Limitations: no limitations History of Present Illness: Patient is a 24-year-old female presents to ED today for evaluation of a dog bite to her right wrist area. 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 Owners think the dog is up-to-date on immunizations although there is no way to verify this as it is almost 5 PM. We were not able to get a hold of the owners and veterinary offices are closed. Her tetanus is UTD. 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 thinks-no way to verify) Mechanism: bite Location - Extremities: Right: forearm Context: provoked (walked into yard for delivery) Associated symptoms: Reports no associated symptoms; Deny fever(s) Related Data Patient tetanus UTD: Yes Previous Rx's Medication Instructions Recorded epinephrine 0.3 mg/0.3 mL 0.3 mg (0.3 mL) IM Q30M PRN 05/10/22 injection, auto-injector (EpiPen anaphylaxis #2 ea 2-Celso) amitriptyline 50 mg tablet 50 mg PO BEDTIME #30 tabs 08/25/24 amoxicillin 875 mg-potassium 1 tab PO BID #14 tabs 11/08/24 clavulanate 125 mg tablet Allergies Allergy/AdvReac Type Severity Reaction Status Date / Time Alpha-Gal Allergy Severe ALGY-Anaphy Verified 10/13/24 13:39 ([id number],3-Gala laxis metoprolol Allergy Severe ADR/ALGY-Pa Verified 10/13/24 13:39 lpitations acetaminophen Allergy ALGY-Swell Verified 10/13/24 13:39 [From Delsy Cough-Cold] Lip/Tongue/Throat amoxicillin Allergy ALGY-Rash Verified 10/13/24 13:39 barley Allergy ADR-Abdominal Verified 10/13/24 13:39 Pain Beef Containing Products Allergy ADR-Abdominal Verified 10/13/24 13:39 Pain cefdinir Allergy ALGY-Rash Verified 10/13/24 13:39 dextromethorphan Allergy ALGY-Swell Verified 10/13/24 13:39 [From Delsym Cough-Cold] Lip/Tongue/Throat doxylamine Allergy ALGY-Swell Verified 10/13/24 13:39 [From Delsym Cough-Cold] Lip/Tongue/Throat duloxetine [From Cymbalta] Allergy ALGY-Rash Verified 11/08/24 15:17 esomeprazole [From Nexium] Allergy rash , Verified 10/13/24 13:39 itching Iodinated Contrast Media Allergy chest pain Verified 10/13/24 13:39 shellfish derived Allergy ALGY-Swell Verified 10/13/24 13:39 Lip/Tongue/Throat red meat Allergy ADR-Abdominal Uncoded 10/13/24 13:39 Pain Review of Systems Const: Denies: fever(s) GI: Denies: nausea or vomiting Musc: Reports: extremity pain and extremity swelling; Denies: joint pain or joint swelling Skin/Breast: Reports: other (puncture wounds R forearm/wrist) Neuro: Denies: numbness in extremities, weakness in extremities or sensory changes PFSH ED PFSH: Medical History Palpitations Major depressive disorder, recurrent severe without psychotic features Generalized anxiety disorder Psychiatric care Surgical History Status post laparoscopic cholecystectomy (03/07/21) H/O esophagogastroduodenoscopy Family History Family/Other Hypertension Denies family history of Clotting disorder Anesthesia complication Bleeding disorder Social History Smoking and tobacco/nicotine status: never used tobacco/nicotine Second hand smoke exposure: No Alcohol intake: former Year of sobriety/quit date alcohol: 2020 Substance/Drug Use: never Lives independently: No Household members: family Marital status: Single service: No Current occupational status: student 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 [employer] Current gender identity: Female Physical Exam Const: COMMON NORMALS: no acute distress, average body habitus, patient oriented x3, no limitations, healthy appearing, alert and well nourished Resp: COMMON NORMALS: normal respiratory effort Cardio: COMMON NORMALS: regular rate and regular rhythm RATE: regular rate RHYTHM: regular rhythm Extremity: COMMON NORMALS: full ROM and capillary refill normal GENERAL: Yes normal exam except as noted RIGHT UPPER EXTREMITY: Yes wrist (several small puncture wounds/abrasions mainly volar R wrist) Right wrist: Yes ROM (normal) and Yes neurovascular exam (normal) and Yes hand & digits (no puncture wounds noted to hand) Right hand and digits: Yes ROM exam (normal) OTHER: wounds w/o erythema, drainage, streaking; mild edema noted; puncture sites are small and do not require closure; full ROM Neuro: COMMON NORMALS: patient oriented x3, moves all extremities, no focal motor deficits and no sensory deficits noted SENSORIUM/ORIENTATION: Yes alert Skin: NARRATIVE SKIN EXAM: see above Course Vital Signs: Vital signs: Vital Signs Temperature 97.9 F 11/08/24 15:11 Pulse Rate 93 11/08/24 15:11 Respiratory Rate 17 11/08/24 15:11 Blood Pressure 124/88 11/08/24 15:11 Pulse Oximetry 100 11/08/24 15:11 Oxygen Delivery Me thod Room Air 11/08/24 15:11 MDM - Animal Bite Medical Decision Making Patient's tetanus is UTD. She will be started on rabies PEP. Will place her on Augmentin and pain medications. She does have rash listed as an allergy to penicillin. Other antibiotic regimens discussed with patient however she declines these stating she has reactions to these antibiotics as well. She is agreeable to try the Augmentin and premedicate with Benadryl. Denies anaphylactic reaction with penicillins. I did discuss rabies PEP medications as well as Augmentin with RN patient pharmacist due to her alpha gal. He stated these were safe. Patient will be given schedule for remainder of rabies series. Strict return to ED precautions discussed regarding infection. XR obtained here and unremarkable. Differential Diagnosis Likely bite by animal and dog bite Medical Records I reviewed the patient's medical records. XR interpretation done by ED provider, pending radiology final review Discharge Plan Discharge Patient Disposition: Home Clinical Impression: Need for post exposure prophylaxis for rabies Dog bite of right wrist Qualifiers: Encounter type: initial encounter Qualified Code(s): S61.551A - Open bite of right wrist, initial encounter Condition: Stable Prescriptions: New amoxicillin-pot clavulanate 875-125 mg tablet 1 tab PO BID Qty: 14 0RF No Action amitriptyline 50 mg tablet 50 mg PO BEDTIME Qty: 30 3RF Rx Instructions: Take one tablet at bedtime epinephrine [EpiPen 2-Celso] 0.3 mg/0.3 mL auto-injector 0.3 mg IM Q30M PRN (Reason: anaphylaxis) Qty: 2 0RF Discharge Orders: Discharge ED (Routine); Ordered 11/08/24 Ordered By: Alessia Baptiste Referrals: Anthony Harrington MD [Primary Care Provider] - Patient Instructions: Animal Bite (ED), Opioid Safety, Pain Management Activity Restrictions/Additional Instructions: As we discussed, I did verify with pharmacy that you are able to take the Augmentin with your alpha gal. We did discuss your reported allergy of a rash to Augmentin. You have indicated you have never had an anaphylactic reaction to penicillins. We discussed possibly premedicating with Benadryl as you are allergic to all other antibiotic regimens that provide coverage for dog bites. You were started on the rabies postexposure prophylaxis series today. You should have been given a schedule at time of discharge for your repeat immunizations on day 3, 7, and 14. You need to start your antibiotics immediately and monitor for signs of infection as dog bites have a high risk of this. You need to return to the emergency department for onset of worsening pain, swelling, streaking up your forearm, fevers, severe pain with movement of your wrist or fingers, or any other concerns you may have. 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
[2024-11-08] MEDS: rabies vaccine 2.5 unit SDV IM (16:50)
[2024-11-08] MEDS: rabies IG 300 unit/mL SDV 1 mL 1380 UNIT IM (16:52)
[2024-11-08] MEDS: amoxicillin-clav 875-125 mg Tablet 1 TAB PO (17:13)
--- NOTE | 2024-11-08 17:20 | PC.NURSE ---
Contacted [place] [employer] and spoke with David. They will contact patient.
[2024-11-08 17:32] VITALS: PULSE 82; O2SAT 100
== END 2024-11-08 17:35 | disposition home or self-care (01) ==
PROVIDERS: Emergency Provider Physician Assistant; PCP Family Medicine
DX: S61.551A Open bite of right wrist, initial encounter (principal); Z29.14 Encounter for prophylactic rabies immune globulin; Z23 Encounter for immunization; W54.0XXA Bitten by dog, initial encounter
CPT/HCPCS: 73110; 90375; 90471; 90675; 99283

== ENCOUNTER 2024-11-11 09:24 | Outpatient (CLI) | payer MEDICAID, SELFPAY ==
--- NOTE | 2024-11-11 09:29 | XR_ITS ---
WS: [id number] Left knee, 3 views, 11/11/2024 Clinical Data: M25.562 - Pain in left knee Comparison: None. Findings: No fractures or dislocations are seen. The joint spaces are normal. The patella is intact. The soft tissues are unremarkable. XR/XR knee LT 3V* [id number] Impression: Negative left knee.
== END 2024-11-11 09:25 | disposition home or self-care (01) ==
LOC: RAD 09:26
PROVIDERS: PCP Family Medicine; Visit Provider Nurse Practitioner Family
DX: M25.562 Pain in left knee (principal)
CPT/HCPCS: 73562

== ENCOUNTER 2024-11-22 09:00 | Oncology outpatient (recurring) (ONCR) | payer MEDICAID, SELFPAY ==
--- NOTE | 2024-11-11 08:49 | PC.NURSE ---
Patient stated she is aware of the contraindications of the alpha-gal. She states she tolerated previous injections without issue. Patient gave consent for todays treatment.
[2024-11-11] MEDS: rabies vaccine 2.5 unit SDV IM (09:11)
[2024-11-15 14:44] VITALS: BP 150/84; PULSE 97; RESP 16; TEMP 35.7; O2SAT 99
[2024-11-15] MEDS: rabies vaccine 2.5 unit SDV IM (14:50)
[2024-11-22] MEDS: rabies vaccine 2.5 unit SDV IM (08:38)
== END 2024-12-03 23:59 | disposition home or self-care (01) ==
PROVIDERS: PCP Family Medicine; Visit Provider Physician Assistant
DX: Z23 Encounter for immunization; Z20.3 Contact with and (suspected) exposure to rabies; S61.551A Open bite of right wrist, initial encounter; W54.0XXA Bitten by dog, initial encounter; Z53.9 Procedure and treatment not carried out, unspecified reason
CPT/HCPCS: 90471; 90675

== ENCOUNTER → 2024-12-22 09:15 | Outpatient (BNVA) | payer OTHER, SELFPAY | PROVIDERS: Family Provider Nurse Practitioner Family; PCP Nurse Practitioner Family; Visit Provider Nurse Practitioner | DX: S83.207A Unspecified tear of unspecified meniscus, current injury, left knee, initial encounter (principal); M25.362 Other instability, left knee; M23.52 Chronic instability of knee, left knee; G89.29 Other chronic pain; X58.XXXA Exposure to other specified factors, initial encounter | CPT/HCPCS: 73560; 73565 ==

== ENCOUNTER 2024-12-31 08:33 | Outpatient (CLI) | payer MEDICAID, SELFPAY ==
--- NOTE | 2024-12-31 08:45 | MR_ITS ---
WS: [id number] MRI LEFT KNEE HISTORY: left knee instability COMPARISON: Radiograph 12/22/2024 Anterior cruciate ligament: Intact. Posterior cruciate ligament: Intact. Medial collateral ligament: Intact. Posterior lateral corner structures: Intact. Medial menisci: Intact. Normal signal, size and shape. Lateral meniscus: Intact. Normal signal, size and shape. Extensor mechanism: Distal quadriceps tendon and patellar tendons are intact. Fluid and soft tissue: No joint effusion. No Danielson's cyst. Osseous and articular structures: Patellofemoral compartment: Normal. Medial compartment: Normal. Lateral compartment: Normal. MR/MR knee LT wo con* [id number] IMPRESSION: Unremarkable MRI LEFT knee. No meniscal or ACL tears. No marrow edema.
== END 2024-12-31 08:34 | disposition home or self-care (01) ==
PROVIDERS: Family Provider Nurse Practitioner Family; PCP Nurse Practitioner Family; Visit Provider Nurse Practitioner
DX: M25.362 Other instability, left knee (principal)
CPT/HCPCS: 73721

== ENCOUNTER → 2025-05-04 11:47 | Outpatient (BNVA) | payer MEDICAID, SELFPAY | PROVIDERS: Family Provider Nurse Practitioner Family; PCP Nurse Practitioner Family; Visit Provider Nurse Practitioner Family | DX: R30.0 Dysuria (principal); N89.8 Other specified noninflammatory disorders of vagina; G90.A Postural orthostatic tachycardia syndrome [POTS] | CPT/HCPCS: 81000; 81513; 87481; 87491; 87591; 87661 ==

== ENCOUNTER → 2025-05-11 09:58 | Outpatient (BNVA) | payer MEDICAID, SELFPAY | PROVIDERS: Family Provider Nurse Practitioner Family; PCP Nurse Practitioner Family; Visit Provider Nurse Practitioner Family | DX: G90.A Postural orthostatic tachycardia syndrome [POTS] (principal) | CPT/HCPCS: 80053; 80061; 82607; 83735; 84439; 84443; 85025 ==

== ENCOUNTER → 2025-05-13 11:28 | Outpatient (BNVA) | payer MEDICAID, SELFPAY | PROVIDERS: Family Provider Nurse Practitioner Family; PCP Nurse Practitioner Family; Visit Provider Nurse Practitioner Family | DX: R39.9 Unspecified symptoms and signs involving the genitourinary system (principal) | CPT/HCPCS: 81000 ==

== ENCOUNTER 2025-05-15 19:55 | Emergency (ER) | payer MEDICAID, SELFPAY ==
[2025-05-15 20:31] VITALS: PULSE 97; RESP 16; O2SAT 100
[2025-05-15 20:35] VITALS: BP 129/87
--- NOTE | 2025-05-15 21:29 | XRR_ITS ---
PROCEDURE INFORMATION: Exam: XR Left Tibia and Fibula Exam date and time: 05/15/2025 10:10 PM Age: 24 years old Clinical indication: C/O pain and swelling to left lower leg; Additional info: Pain and swelling lle TECHNIQUE: Imaging protocol: Radiologic exam of the left tibia and fibula. Views: 2 views. COMPARISON: MR knee LT wo con* [id number] 12/31/2024 9:23 AM FINDINGS: Bones/joints: Normal. Soft tissues: Normal. XR/XR tibia fibula LT 2V [id number] IMPRESSION: No acute findings.
--- NOTE | 2025-05-15 21:29 | USR_ITS ---
PROCEDURE INFORMATION: Exam: US Duplex Left Lower Extremity Veins, Limited Exam date and time: 05/15/2025 11:22 PM Age: 24 years old Clinical indication: Pain; Leg, upper and leg, lower; Left; Additional info: Pain swelling lle TECHNIQUE: Imaging protocol: Real-time duplex ultrasound of the left extremity with 2-D maldonado scale, color Doppler flow and spectral waveform analysis including responses to compression and other maneuvers (when performed) with image documentation. Limited exam focused on the left lower extremity veins. COMPARISON: MR knee LT wo con* [id number] 12/31/2024 9:23 AM FINDINGS: Left deep veins: Unremarkable. The common femoral, femoral, proximal profunda femoral and popliteal veins are patent without thrombus. Normal Doppler waveforms. Normal compressibility and/or augmentation response. Superficial veins: Greater saphenous vein at the saphenofemoral junction is patent without thrombus. Soft tissues: Unremarkable. US/[place] [id number] IMPRESSION: No evidence of deep vein thrombosis.
--- NOTE | 2025-05-15 23:42 | ED_ITS ---
Documented by User: SIDNEY Canales 05/15/25 23:44 HPI - Extremity Problem General: Chief complaint: Extremity Injury, Lower Stated complaint: Left Knee Pain Time Seen by Provider: 05/15/25 22:04 Source: patient Mode of arrival: ambulatory Limitations: no limitations History of Present Illness: Patient is a 24-year-old female who presents the emergency department planing of left lower leg pain from a floating trip. Notes that she was walking felt a pop in her leg and felt something roll under her skin. Reports a history of knee instability in the past which she has seen orthopedist and has received previous MRI. States that pain radiates towards the left ankle where she is having swelling in the left ankle. Has been ambulatory, though with pain. Denies pain medications at this time. MD Complaint: extremity pain Location: left and lower extremity Associated symptoms: Deny chest pain, fever(s) or rash Related Data Previous Rx's ?Medication ?Instructions ?Recorded ciprofloxacin HCl 500 mg tablet 500 mg PO BID 5 days # 10 tabs 05/04/25 (Cipro) epinephrine 0.3 mg/0.3 mL 0.3 mg (0.3 mL) IM Q30M PRN 05/04/25 injection, auto-injector (EpiPen anaphylaxis #2 ea 2-Celso) Allergies Allergy/AdvReac Type Severity Reaction Status Date / Time Alpha-Gal Allergy Severe ALGY-Anaphy Verified 04/21/25 08:04 (Omxzvgypq-Poeqd-6,3-Gala laxis metoprolol Allergy Severe ADR/ALGY-Pa Verified 04/21/25 08:04 lpitations acetaminophen (From Delsym Allergy ALGY-Swell Verified 04/21/25 08:04 Cough-Cold) Lip/Tongue/Throat amoxicillin Allergy ALGY-Rash Verified 04/21/25 08:04 Beef Containing Products Allergy ADR-Abdominal Verified 04/21/25 08:04 Pain cefdinir Allergy ALGY-Rash Verified 04/21/25 08:04 clindamycin Allergy ADR-Gastrointestinal Verified 05/04/25 12:07 Upset dextromethorphan (From Allergy ALGY-Swell Verified 04/21/25 08:04 Delsym Cough-Cold) Lip/Tongue/Throat doxylamine (From Delsym Allergy ALGY-Swell Verified 04/21/25 08:04 Cough-Cold) Lip/Tongue/Throat duloxetine (From Cymbalta) Allergy ALGY-Rash Verified 04/21/25 08:04 esomeprazole (From Nexium) Allergy rash , Verified 04/21/25 08:04 itching Iodinated Contrast Media Allergy chest pain Verified 04/21/25 08:04 sulfamethoxazole (From Allergy ALGY-Rash Verified 05/04/25 12:07 Bactrim) trimethoprim (From Bactrim) Allergy ALGY-Rash Verified 05/04/25 12:07 Review of Systems General: Reports: 10 or more systems reviewed and unremarkable except in HPI and below Const: Denies: fever(s) or chills Card: Denies: chest pain Resp: Denies: dyspnea or productive cough GI: Denies: abdominal pain, nausea, vomiting or diarrhea : Denies: flank pain Musc: Reports: extremity pain (Left lower extremity), extremity swelling (Left foot) and joint pain (Left knee); Denies: neck pain, back pain, joint swelling, joint redness, joint warmth, limited range of motion or muscle weakness Skin/Breast: Denies: rash Neuro: Denies: headache(s), numbness in extremities or weakness in extremities PFSH ED PFSH: Medical History Chronic pain of left knee Kami sign present in left knee Recurrent left knee instability Chronic pain of left knee Palpitations Major depressive disorder, recurrent severe without psychotic features Generalized anxiety disorder Psychiatric care Surgical History Status post laparoscopic cholecystectomy (03/07/21) H/O esophagogastroduodenoscopy Family History Family/Other Hypertension Denies family history of Clotting disorder Anesthesia complication Bleeding disorder Social History Smoking and tobacco/nicotine status: never used tobacco/nicotine Second hand smoke exposure: No Alcohol intake: former Year of sobriety/quit date alcohol: 2020 Substance/Drug Use: never Lives independently: No Household members: family Marital status: Single service: No Current occupational status: student 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 [email or web address] Current gender identity: Female Physical Exam Const: COMMON NORMALS: no acute distress, patient oriented x3, no limitations, healthy appearing, alert and well nourished HENMT: COMMON NORMALS: normocephalic and atraumatic HEAD & SCALP: normoc ephalic and atraumatic Neck/C-Spine: COMMON NORMALS: full ROM, supple and no meningeal signs Resp: COMMON NORMALS: normal respiratory effort, No use of accessory muscles and clear to auscultation bilaterally AUSCULTATION: clear to auscultation bilaterally Cardio: COMMON NORMALS: regular rate and regular rhythm RATE: regular rate RHYTHM: regular rhythm Extremity: COMMON NORMALS: normal to inspection, full ROM, capillary refill normal, no joint enlargement and no clubbing, cyanosis or edema NARRATIVE EXTREMITY EXAM: Tender to palpation left lateral knee, no obvious swelling or appreciable joint effusion. No bruising. Full range of motion, though with pain. No joint laxity. Normal ankle examination. Neuro: COMMON NORMALS: patient oriented x3, moves all extremities, no focal motor deficits and no sensory deficits noted SENSORIUM/ORIENTATION: Yes alert MENINGEAL SIGNS: Yes no meningeal signs Skin: COMMON NORMALS: no rashes or lesions noted GENERAL SKIN EXAM: no rashes or lesions noted Course Vital Signs: Vital signs: Vital Signs Pulse Rate 97 05/15/25 20:31 Respiratory Rate 16 05/15/25 20:31 Blood Pressure 129/87 05/15/25 20:35 Pulse Oximetry 100 05/15/25 20:31 Oxygen Delivery Me thod Room Air 05/15/25 20:31 MDM - Extremity (Nontraumatic) Medical Decision Making Patient presenting with atraumatic left knee and left lower extremity pain. History of similar pain in the past, she has seen orthopedist in has had MRIs before. Exam overall is unremarkable, she is tender to palpation to the left lateral knee into the popliteal space. Ultrasound ordered negative for DVT. The x-ray does not show any acute findings. With her increasing difficulty to walk, she will be given crutches and instructed to call orthopedist in the morning for reevaluation. She denied pain medications here. Lab Data Radiology Impressions Tibia/Fibula X-Ray 05/15/25 21:29 IMPRESSION: No acute findings. Venous Duplex 05/15/25 21:29 IMPRESSION: No evidence of deep vein thrombosis. All radiology interpretation(s) finalized by discharge Discharge Plan Discharge Patient Disposition: Home Clinical Impression: Left knee sprain Qualifiers: Encounter type: initial encounter Involved ligament of knee: unspecified ligament Qualified Code(s): S83.92XA - Sprain of unspecified site of left knee, initial encounter Condition: Stable Prescriptions: No Action ciprofloxacin HCl [Cipro] 500 mg tablet 500 mg PO BID 5 Days Qty: 10 0RF epinephrine [EpiPen 2-Celso] 0.3 mg/0.3 mL auto-injector 0.3 mg IM Q30M PRN (Reason: anaphylaxis) Qty: 2 0RF Discharge Orders: Discharge ED (Routine); Ordered 05/15/25 Ordered By: Isrrael Ordonez Referrals: Ambika Uriostegui FNP [Primary Care Provider, Family Practice] Patient Instructions: Patient Portal & Anant Instructions Activity Restrictions/Additional Instructions: Left knee sprain Thank you for coming in today. The evaluation shows a left knee sprain. The knee X-ray did not show a fracture, and the leg ultrasound was negative for a blood clot (deep vein thrombosis). Based on the exam, there is mild to moderate concern for an internal knee ligament strain/partial injury. Because of this, crutches are provided to protect the knee until it can be reassessed by the orthopedist in the morning. What to do at home (next 48?72 hours) - Protect and rest: Limit activities that increase pain or swelling. Use the crutches to keep weight off the injured leg. Put only as much weight as feels comfortable unless told otherwise. This protects possible nvjwfm-sye-xypa (ligament/meniscus) injuries while swelling and pain improve. - Ice: Apply a cold pack to the knee for 15?20 minutes at a time, 3?5 times a day. Do not place ice directly on the skin; wrap it in a thin towel. - Compression: Use an elastic wrap or knee sleeve to help control swelling. Wrap it snugly but not so tight that it causes numbness, tingling, or color change in the foot. - Elevation: When resting, raise the knee above heart level to reduce swelling. - Pain control: Yalo-dys-ynedtql options like acetaminophen or an NSAID (such as ibuprofen or naproxen) can help with pain and swelling, if safe for you based on your medical history. Follow the directions on the label and avoid using more than one pain medicine containing acetaminophen at the same time. Crutch and activity guidance - Use both crutches when walking. Keep the injured leg slightly ahead and take short steps. Place the crutches slightly wider than shoulder width for balance. - Partial weight-bearing only as tolerated on the left leg until cleared. If pain increases with weight, back off and rest. - Avoid running, jumping, squatting, twisting, or kneeling until evaluated by the orthopedist. Gentle tiyby-ef-ijdjdf (bending/straightening within comfort) a few times a day is okay if it does not increase pain or swelling. Follow-up plan - Call your orthopedist in the morning to arrange prompt follow-up. Because the X-ray was negative but there is some concern for fiqhym-buq-hfcm injury, your orthopedist may consider an MRI if symptoms and exam suggest a ligament or meniscus injury after the initial swelling improves. - If you do not have relief or if walking does not improve over the next 1?2 weeks, let your orthopedist know. MRI is commonly used when X-rays are normal bu t internal injury is suspected. Warning signs: seek urgent care now if any of the following happen - Severe or rapidly worsening pain or swelling - Inability to walk even with crutches or new knee ?giving way? with a sensation of shifting - Fever, redness, or warmth spreading up or down the leg - Numbness, tingling, weakness, or the foot becomes cold, pale, or blue - New calf swelling or pain, chest pain, or shortness of breath Why these steps matter - In acute knee injuries, normal X-rays are common even when ligaments or menisci are irritated or partially injured. Short-term protection with crutches and careful follow-up help prevent worsening and guide whether advanced imaging is needed. - A careful physical exam helps identify possible internal knee injuries. If symptoms persist or instability develops, MRI is typically the next test after a normal X-ray to look at ligaments and menisci. Print Language: Italian Coding Level of Care Code ED Camera Maker for Gertrudis Fwd Documented by User: Flavio Saunders DO 05/16/25 00:23 HPI - Extremity Problem General: Chief complaint: Extremity Injury, Lower Stated complaint: Left Knee Pain Time Seen by Provider: 05/15/25 22:04 Related Data Previous Rx's ?Medication ?Instructions ?Recorded ciprofloxacin HCl 500 mg tablet 500 mg PO BID 5 days # 10 tabs 05/04/25 (Cipro) epinephrine 0.3 mg/0.3 mL 0.3 mg (0.3 mL) IM Q30M PRN 05/04/25 injection, auto-injector (EpiPen anaphylaxis #2 ea 2-Celso) Allergies Allergy/AdvReac Type Severity Reaction Status Date / Time Alpha-Gal Allergy Severe ALGY-Anaphy Verified 04/21/25 08:04 (Hbprexfwg-Bqdte-7,3-Gala laxis metoprolol Allergy Severe ADR/ALGY-Pa Verified 04/21/25 08:04 lpitations acetaminophen (From Delsym Allergy ALGY-Swell Verified 04/21/25 08:04 Cough-Cold) Lip/Tongue/Throat amoxicillin Allergy ALGY-Rash Verified 04/21/25 08:04 Beef Containing Products Allergy ADR-Abdominal Verified 04/21/25 08:04 Pain cefdinir Allergy ALGY-Rash Verified 04/21/25 08:04 clindamycin Allergy ADR-Gastrointestinal Verified 05/04/25 12:07 Upset dextromethorphan (From Allergy ALGY-Swell Verified 04/21/25 08:04 Delsym Cough-Cold) Lip/Tongue/Throat doxylamine (From Delsym Allergy ALGY-Swell Verified 04/21/25 08:04 Cough-Cold) Lip/Tongue/Throat duloxetine (From Cymbalta) Allergy ALGY-Rash Verified 04/21/25 08:04 esomeprazole (From Nexium) Allergy rash , Verified 04/21/25 08:04 itching Iodinated Contrast Media Allergy chest pain Verified 04/21/25 08:04 sulfamethoxazole (From Allergy ALGY-Rash Verified 05/04/25 12:07 Bactrim) trimethoprim (From Bactrim) Allergy ALGY-Rash Verified 05/04/25 12:07 PFSH ED PFSH: Medical History Chronic pain of left knee Kami sign present in left knee Recurrent left knee instability Chronic pain of left knee Palpitations Major depressive disorder, recurrent severe without psychotic features Generalized anxiety disorder Psychiatric care Surgical History Status post laparoscopic cholecystectomy (03/07/21) H/O esophagogastroduodenoscopy Family History Family/Other Hypertension Denies family history of Clotting disorder Anesthesia complication Bleeding disorder Social History Smoking and tobacco/nicotine status: never used tobacco/nicotine Second hand smoke exposure: No Alcohol intake: former Year of sobriety/quit date alcohol: 2020 Substance/Drug Use: never Lives independently: No Household members: family Marital status: Single service: No Current occupational status: student 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 Current gender identity: Female Course Vital Signs: Vital signs: Vital Signs Pulse Rate 97 05/15/25 20:31 Respiratory Rate 16 05/15/25 20:31 Blood Pressure 129/87 05/15/25 20:35 Pulse Oximetry 100 05/15/25 20:31 Oxygen Delivery Me thod Room Air 05/15/25 20:31 MDM - Extremity (Nontraumatic) Medical Decision Making Patient presenting with atraumatic left knee and left lower extremity pain. History of similar pain in the past, she has seen orthopedist in has had MRIs before. Exam overall is unremarkable, she is tender to palpation to the left lateral knee into the popliteal space. Ultrasound ordered negative for DVT. The x-ray does not show any acute findings. With her increasing difficulty to walk, she will be given crutches and instructed to call orthopedist in the morning for reevaluation. She denied pain medications here. Patient was originally seen by Mr. José Luis PA-C. I agree with his history, evaluation, and management. Lab Data Radiology Impressions Tibia/Fibula X-Ray 05/15/25 21:29 IMPRESSION: No acute findings. Venous Duplex 08/10/25 21:29 IMPRESSION: No evidence of deep vein thrombosis. Discharge Plan Discharge Patient Disposition: Home Clinical Impression: Left knee sprain Qualifiers: Encounter type: initial encounter Involved ligament of knee: unspecified ligament Qualified Code(s): S83.92XA - Sprain of unspecified site of left knee, initial encounter Condition: Stable Prescriptions: No Action ciprofloxacin HCl [Cipro] 500 mg tablet 500 mg PO BID 5 Days Qty: 10 0RF epinephrine [EpiPen 2-Celso] 0.3 mg/0.3 mL auto-injector 0.3 mg IM Q30M PRN (Reason: anaphylaxis) Qty: 2 0RF Discharge Orders: Discharge ED (Routine); Ordered 05/15/25 Ordered By: Isrrael Ordonez Referrals: Ambika Uriostegui FNP [Primary Care Provider, Family Practice] Patient Instructions: Patient Portal & Anant Instructions Activity Restrictions/Additional Instructions: Left knee sprain Thank you for coming in today. The evaluation shows a left knee sprain. The knee X-ray did not show a fracture, and the leg ultrasound was negative for a blood clot (deep vein thrombosis). Based on the exam, there is mild to moderate concern for an internal knee ligament strain/partial injury. Because of this, crutches are provided to protect the knee until it can be reassessed by the orthopedist in the morning. What to do at home (next 48?72 hours) - Protect and rest: Limit activities that increase pain or swelling. Use the crutches to keep weight off the injured leg. Put only as much weight as feels comfortable unless told otherwise. This protects possible zbsikh-fta-gcbx (l igament/meniscus) injuries while swelling and pain improve. - Ice: Apply a cold pack to the knee for 15?20 minutes at a time, 3?5 times a day. Do not place ice directly on the skin; wrap it in a thin towel. - Compression: Use an elastic wrap or knee sleeve to help control swelling. Wrap it snugly but not so tight that it causes numbness, tingling, or color change in the foot. - Elevation: When resting, raise the knee above heart level to reduce swelling. - Pain control: Tbvd-qyl-ptffyvs options like acetaminophen or an NSAID (such as ibuprofen or naproxen) can help with pain and swelling, if safe for you based on your medical history. Follow the directions on the label and avoid using more than one pain medicine containing acetaminophen at the same time. Crutch and activity guidance - Use both crutches when walking. Keep the injured leg slightly ahead and take short steps. Place the crutches slightly wider than shoulder width for balance. - Partial weight-bearing only as tolerated on the left leg until cleared. If pain increases with weight, back off and rest. - Avoid running, jumping, squatting, twisting, or kneeling until evaluated by the orthopedist. Gentle cvahn-ly-smivwo (bending/straightening within comfort) a few times a day is okay if it does not increase pain or swelling. Follow-up plan - Call your orthopedist in the morning to arrange prompt follow-up. Because the X-ray was negative but there is some concern for bbecuj-acp-sghg injury, your orthopedist may consider an MRI if symptoms and exam suggest a ligament or meniscus injury after the initial swelling improves. - If you do not have relief or if walking does not improve over the next 1?2 weeks, let your orthopedist know. MRI is commonly used when X-rays are normal but internal injury is suspected. Warning signs: seek urgent care now if any of the following happen - Severe or rapidly worsening pain or swelling - Inability to walk even with crutches or new knee ?giving way? with a sensation of shifting - Fever, redness, or warmth spreading up or down the leg - Numbness, tingling, weakness, or the foot becomes cold, pale, or blue - New calf swelling or pain, chest pain, or shortness of breath Why these steps matter - In acute knee injuries, normal X-rays are common even when ligaments or menisci are irritated or partially injured. Short-term protection with crutches and careful follow-up help prevent worsening and guide whether advanced imaging is needed. - A careful physical exam helps identify possible internal knee injuries. If symptoms persist or instability develops, MRI is typically the next test after a normal X-ray to look at ligaments and menisci. Print Language: Italian Coding Level of Care Code ED Camera Maker for Gertrudis Rosas
--- OUTSIDE RECORDS SUMMARY | 2025-05-18 07:57 | XMS_ITS | Encounter Summary ---
Author Organization [facility] Address [address] [place] [address] Care Team Providers Care Steward/Stewardess Smoke Room Name Role Phone Unavailable Primary Care Provider Unavailabl e Encounter Details Date Type Department Care Team (Latest Contact Info) Description 1999 Outpatient Historical [facility] Vikas Fonseca MD [address] [place] [id number] Diaper or napkin rash (Primary Dx) Social History Tobacco Use Types Packs/Day Years Used Date Smoking Tobacco: Never Assessed Comments Unknown Sex and Gender Information Value Date Recorded Sex Assigned at Not on file 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
--- OUTSIDE RECORDS SUMMARY | 2025-05-18 07:57 | XMS_ITS | Clinical Summary ---
Author Organization [facility] Address [address] Moralesn: Epic Prelude ADT KATHLEEN TEJEDA [address] Care Team Providers Care Photographic Platemaker Name Role Phone Unavailable Primary Care Provider Unavailabl e Immunizations Immunization Administration Dates Next Due (M-M-R II/PRIORIX)(12 MO UP) MEASLES, MUMPS AND RUBELLA VIRUS VACCINE, 0.5 ML IM/SUBCUT 05/15/2005,09/24/2000 (VARIVAX)(12 MOS UP)VARICELL A VIRUS VACCINE (PF) 0.5 ML, SUB CUT 04/13/2001 Dt Dtp Dtap Vaccine 05/15/2005, 1,03/26/2000,1999,1999 HIB, Unspecified Formulation 04/13/2001, 03/26/2000,01/23/2000,1999 Hepatitis B Vaccine 03/19/2000,1999,1998 IPV/OPV 05/15/2005, 1,01/23/2000,1999 Influenza Seasonal Unspecifi ed Formulation IM 08/17/2008 Social History Tobacco Use Types Packs/Day Years Used Date Smoking Tobacco: Never Assessed Comments Unknown Sex and Gender Information Value Date Recorded Sex Assigned at Not on file 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
--- OUTSIDE RECORDS SUMMARY | 2025-05-18 07:57 | XMS_ITS | Encounter Summary ---
Author Organization [employer] [facility] Address [address] [place] [address] Care Team Providers Care Reformatory Attendant Name Role Phone Unavailable Primary Care Provider Unavailabl e Encounter Details Date Type Department Care Team (Latest Contact Info) Description 1999 Outpatient Historical HIS [facility] Vikas Fonseca MD [address] [place] [id number] Unspecified otitis media (Primary Dx) Social History Tobacco Use Types Packs/Day Years Used Date Smoking Tobacco: Never Assessed Comments Unknown Sex and Gender Information Value Date Recorded Sex Assigned at Not on file 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
--- OUTSIDE RECORDS SUMMARY | 2025-05-18 07:57 | XMS_ITS | Encounter Summary ---
Author Organization [facility] Address 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
--- OUTSIDE RECORDS SUMMARY | 2025-05-18 07:57 | XMS_ITS | Clinical Summary ---
Author Organization [facility] Address [address] [facility] [address] [place] [address] Care Team Providers Care Matrix Supervisor Name Role Phone Unavailable Primary Care Provider Unavailabl e Allergies Active Allergy Reactions Criticality Noted Date Comments Cefdinir Hives High 11/04/2022 Throat swelling, hives, stomach pain. Dextromethorphan Hbr Swelling Low 11/04/2022 Face swelling. Guaifenesin Other (See Comments) 11/04/2022 Loopy, high. Penicillins Hives High 11/04/2022 Swelling, hives. Medications linaCLOtide (Linzess) 145 mcg capsule Take 145 mcg by mouth daily before breakfast. Active amitriptyline (ELAVIL) 10 mg tablet Take 20 mg by mouth daily at bedtime. Active cyanocobalamin, vitamin B-12, (B-12 COMPLIANCE INJECTION) by Injection route. Active cetirizine (ZyrTEC) 10 mg tabletIndicatio ns:Allergy to pollen Take 1 Tablet (10 mg) by mouth daily. 30 Tablet 5 3 Active fluticasone propionate (FLONASE) 50 mcg/spray [place], Suspension nasal inhalerIndicati ons:Allergy to pollen Administer 2 Sprays in each nostril daily. 16 Gram 5 3 Active azelastine (ASTELIN) 137 mcg/actuation nasal sprayIndication s:Allergy to pollen Administer 1 [place] in each nostril 2 times daily as needed (rhinitis). 30 mL 5 3 Active Active Problems No known active problems Encounters Date Type Department Care Team Description 05/10/2025 External Device Data [facility] ABSTRACTION Provider, Abstract 04/20/2025 External Device Data [facility]STRACTION Provider, Abstract 04/20/2025 External Device Data [facility] ABSTRACTION Provider, Abstract 03/29/2025 Orders Only [facility] [place] [address] [place] [address] Provider, Abstract 03/23/2025 External Device Data [facility] ABSTRACTION Provider, Abstract 03/22/2025 External Device Data [facility]CTION Provider, Abstract 03/22/2025 External Device Data [facility]STRA[facility] Provider, Abstract 03/15/2025 Telephone [facility] [address] [place] [id number] Brianna Burr MD Referral from Last 3 Months Immunizations Immunization Administration Dates Next Due (M-M-R [...] Packs/Day Years Used Date Smoking Tobacco: Never Tobacco Cessation:Counseling Given: Not Answered Comments No Sex and Gender Information Value Date Recorded Sex Assigned at Not on file Legal Sex Female 2:27 PM GRADER MEAT Gender Identity Not on file Sexual Orientation Not on file Last Filed Vital Signs Vital Sign Reading Time Taken Comments Blood Pressure 128/82 11/04/2022 11:19 AM GRADER MEAT Pulse - - Temperature - - Respiratory Rate - - Oxygen Saturation - - Inhaled Oxygen Concentration - - Weight 73.5 kg (162 lb) 11/04/2022 11:19 AM GRADER MEAT Height 160 cm (5' 3 ) 11/04/2022 11:19 AM GRADER MEAT Body Mass Index 28.7 11/04/2022 11:19 AM GRADER MEAT Plan of Treatment Health Maintenance Due Date Last Done Comments DTAP/TDAP/TD VACCINES (6 - Tdap) 2010 05/15/2005, 04/13/2001, 03/26/2000, Additional history exists HPV VACCINES (1 - 3-dose series) 2014 CERVICAL CANCER SCREENING 2020 HPV/Cotest (21-29) 2020 PAP SMEAR 2020 INFLUENZA VACCINE (#1) 2025 08/17/2008 HEPATITIS B VACCINES Completed 03/19/2000, 1999, 1999 Insurance [facility] MEDICAID [facility] MEDICAID
--- OUTSIDE RECORDS SUMMARY | 2025-05-18 07:57 | XMS_ITS | Encounter Summary ---
Author Organization [email or web address] [facility] Address [address] [place] [address] Care Team Providers Care Ragman Name Role Phone Unavailable Primary Care Provider Unavailabl e Encounter Details Date Type Department Care Team (Latest Contact Info) Description 1999 Outpatient Historical HIS [facility] Vikas Fonseca MD [address] [place] [id number] Tear film insufficiency, unspecified (Primary Dx); Unspecified circulatory system disorder Social History Tobacco Use Types Packs/Day Years Used Date Smoking Tobacco: Never Assessed Comments Unknown Sex and Gender Information Value Date Recorded Sex Assigned at Not on file Legal Sex Female 4:29 AM BAG CUTTER Gender Identity Not on file Sexual Orientation Not on file documented as of this encounter Plan of Treatment Not on file documented as of this encounter Visit Diagnoses Diagnosis Tear film insufficiency, unspecified- Primary Unspecified circulatory system disorder documented in this encounter
--- OUTSIDE RECORDS SUMMARY | 2025-05-18 07:57 | XMS_ITS | Encounter Summary ---
Author Organization [employer] [facility] Address [address] [place] [address] Care Team Providers Care Data Processing Mechanic Name Role Phone Unavailable Primary Care Provider Unavailabl e Encounter Details Date Type Department Care Team (Latest Contact Info) Description 1999 Outpatient Historical HIS [facility] Vikas Fonseca MD [address] [place] [address] Jaundice, unspecified, not of (Primary Dx) Social History Tobacco Use Types Packs/Day Years Used Date Smoking Tobacco: Never Assessed Comments Unknown Sex and Gender Information Value Date Recorded Sex Assigned at Not on file Legal Sex Female 4:29 AM BIG 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
--- OUTSIDE RECORDS SUMMARY | 2025-05-18 07:57 | XMS_ITS | Encounter Summary ---
Author Organization [employer] [facility] Address [address] [place] [address] Care Team Providers Care Autism Motor Specialist Name Role Phone Unavailable Primary Care Provider Unavailabl e Encounter Details Date Type Department Care Team (Latest Contact Info) Description 1999 Outpatient Historical HIS [facility] Vikas Fonseca MD [address] [place] [phone] Unspecified congenital anomaly of eye (Primary Dx) Social History Tobacco Use Types Packs/Day Years Used Date Smoking Tobacco: Never Assessed Comments Unknown Sex and Gender Information Value Date Recorded Sex Assigned at Not on file Legal Sex Female 4:29 AM CRYSTAL CUTTER Gender Identity Not on file Sexual Orientation Not on file documented as of this encounter Plan of Treatment Not on file documented as of this encounter Visit Diagnoses Diagnosis Unspecified congenital anomaly of eye- Primary documented in this encounter
--- OUTSIDE RECORDS SUMMARY | 2025-05-18 07:57 | XMS_ITS | Encounter Summary ---
Author Organization [employer] [facility] Address [address] [place] [address] Care Team Providers Care Revenue Manager Name Role Phone Unavailable Primary Care Provider Unavailabl e Encounter Details Date Type Department Care Team (Latest Contact Info) Description 1999 Outpatient Historical HIS [facility] Vikas Fonseca MD [address] [place] [phone] Tear film insufficiency, unspecified (Primary Dx); Radicular cyst Social History Tobacco Use Types Packs/Day Years Used Date Smoking Tobacco: Never Assessed Comments Unknown Sex and Gender Information Value Date Recorded Sex Assigned at Not on file Legal Sex Female 4:29 AM EM PHYSICIAN Gender Identity Not on file Sexual Orientation Not on file documented as of this encounter Plan of Treatment Not on file documented as of this encounter Visit Diagnoses Diagnosis Tear film insufficiency, unspecified- Primary 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
--- OUTSIDE RECORDS SUMMARY | 2025-05-18 07:57 | XMS_ITS | Encounter Summary ---
Author Organization [employer] [facility] Address [address] [place] [address] Care Team Providers Care Publications Writer Name Role Phone Unavailable Primary Care Provider Unavailabl e Encounter Details Date Type Department Care Team (Latest Contact Info) Description 1999 Outpatient Historical HIS [facility] Vikas Fonseca MD [address] [place] [address] Acute upper respiratory infections of unspecified site (Primary Dx) Social History Tobacco Use Types Packs/Day Years Used Date Smoking Tobacco: Never Assessed Comments Unknown Sex and Gender Information Value Date Recorded Sex Assigned at Not on file Legal Sex Female 4:29 AM SHREDDER TENDER PEAT Gender Identity Not on file Sexual Orientation Not on file documented as of this encounter Plan of Treatment Not on file documented as of this encounter Visit Diagnoses Diagnosis Acute upper respiratory infections of unspecified site- Primary documented in this encounter
== END 2025-05-16 00:01 | disposition home or self-care (01) ==
PROVIDERS: Emergency Provider Physician Assistant; PCP Nurse Practitioner Family
DX: S83.92XA Sprain of unspecified site of left knee, initial encounter (principal); X58.XXXA Exposure to other specified factors, initial encounter
CPT/HCPCS: 73590; 93971; 99284

== ENCOUNTER → 2025-05-19 12:46 | Outpatient (BNVA) | payer MEDICAID, SELFPAY | PROVIDERS: PCP Nurse Practitioner Family; Visit Provider Orthopaedic Surgery | DX: S83.92XA Sprain of unspecified site of left knee, initial encounter (principal); M23.52 Chronic instability of knee, left knee; X58.XXXA Exposure to other specified factors, initial encounter | CPT/HCPCS: 73562 ==

== ENCOUNTER 2025-05-24 15:09 | Outpatient (CLI) | payer MEDICAID, SELFPAY ==
--- NOTE | 2025-05-24 16:00 | MR_ITS ---
WS: [id number] MRI LEFT KNEE NONCONTRAST TECHNIQUE: Axial PD, coronal PD fat sat, coronal PD, sagittal PD, and sagittal PD fat-sat images obtained. CLINICAL INFORMATION: knee pain COMPARISON: 12/31/2024 FINDINGS: Distal quadriceps and patella tendons are intact. Hypertrophic patella. ACL and PCL appear intact. Normal femoral condyles and tibial plateau. No bone marrow contusion. Normal medial and lateral meniscus. No acute appearing meniscal tears. Normal patella. Medial and lateral patellar retinaculum appear intact. Normal popliteal fossa. Normal lateral collateral ligament. Normal medial collateral ligament. No significant joint effusion. MR/MR knee LT wo con* [id number] IMPRESSION: 1. ACL and PCL appear intact. 2. No acute appearing meniscal tears. 3. Normal patella. 4. No significant joint effusion. 5. Medial and lateral collateral ligaments appear intact. 6. No acute findings. Outbridge grading: grade I: focal areas of hyperintensity with normal contour
== END 2025-05-24 15:10 | disposition home or self-care (01) ==
LOC: RAD 15:12
PROVIDERS: Visit Provider Orthopaedic Surgery
DX: M25.562 Pain in left knee (principal)
CPT/HCPCS: 36415; 73721; 82306; 82565; 83520; 85651; 86160; 86162; 86200; 86235; 86255; 86376; 86431; 86480; 86704; 86803; 87340

== ENCOUNTER → 2025-07-05 09:40 | Outpatient (BNVA) | payer MEDICAID, SELFPAY | PROVIDERS: Family Provider Nurse Practitioner Family; PCP Nurse Practitioner Family; Visit Provider Nurse Practitioner Family | DX: R63.5 Abnormal weight gain (principal) | CPT/HCPCS: 80053; 82607; 83735; 84443; 85025 ==

== ENCOUNTER 2025-07-07 08:51 | Outpatient (CLI) | payer MEDICAID, SELFPAY ==
--- NOTE | 2025-07-07 09:30 | US_ITS ---
WS: [id number] ABDOMINAL ULTRASOUND REASON FOR EXAM: R14.0 - Abdominal distension (gaseous) TECHNIQUE: Grayscale and Doppler ultrasound examination of the abdomen. FINDINGS: Pancreas: Unable to evaluate due to overlying bowel gas. Abdominal aorta and IVC: Unremarkable Liver: Liver measures 11.8 cm in length. Relatively normal echogenicity. No focal lesion. Normal portal venous blood flow. No dilated intrahepatic biliary radicles. No dilatation of the common bile duct. Gallbladder: Post cholecystectomy. Left kidney: Left kidney measures 10.9 cm x 5.2 cm x 5.8 cm. Left kidney cortex measures 1.2 cm. No mass, hydronephrosis or calculus. Right kidney: Right kidney measures 10.2 cm x 4.8 cm x 5.1 cm. Right kidney cortex measures 0.9 cm. No calculus, mass, or hydronephrosis. Spleen: Spleen measures 10.0 cm x 2.6 cm x 9.5 cm. No focal lesion. No ascites. US/US abdomen complete* [id number] IMPRESSION: Post cholecystectomy with no acute abnormality identified.
== END 2025-07-07 08:52 | disposition home or self-care (01) ==
LOC: RAD 08:52
PROVIDERS: PCP Nurse Practitioner Family; Visit Provider Nurse Practitioner Family
DX: R14.0 Abdominal distension (gaseous) (principal); R10.9 Unspecified abdominal pain; Z90.49 Acquired absence of other specified parts of digestive tract
CPT/HCPCS: 76700; 87338

== ENCOUNTER 2025-08-21 21:44 | Emergency (ER) | payer MEDICAID, SELFPAY ==
[2025-08-21 21:49] VITALS: BP 147/88; PULSE 119; RESP 16; TEMP 37; O2SAT 100; BMI 30.1
--- OUTSIDE RECORDS SUMMARY | 2025-08-21 21:52 | XMS_ITS | Data Portability ---
Author Organization [facility] Curtis Naknek [facility], [facility] Address [address] [address] Care Team Providers Care Bar Catcher Name Role Phone TANIA HARRINGTON Primary Care Provider Assessment Encounter Date Assessment Date Assessment LastModified by Organization Details LastModified Time 10/13/2024 10/13/2024 duplicate [email or web address] Not available 10/06 08:08:41 10/13/2024 10/13/2024 Patient sent to ER for further evaluation due to photophobia, nausea, vomiting, and unable to walk without assistance. Report called to ER by Milady CORTEZ [email or web address] Not available 10/13/2024 13:37:53 Plan of Treatment Reminders Order Date Submit Date Provider Last Modified By Organization Details Last Modified Time Details Appointments None recorded. Lab urinalysi s, complete 2023 [facility] ([facility]), [address] [place] [address], [address], 11:37:11 alpha-gal ige, serum 2023 [employer] [facility], hCloe Fu, [place], [address], 4 23:35:46 CMP, serum or plasma 2023 024 [employer] [facility], Chloe Fu, [place], [address], 4 23:35:48 CBC 2023 024 [place] [facility], [address] [facility] [address], [address], 4 11:37:48 T4, free, serum 2023 024 [employer] [facility], [address], [place], [address], 4 23:35:49 TSH, serum or plasma 2023 024 [facility] [employer] [facility], [address], [place], [address], 4 18:50:21 vitamin D, 25-hydrox y, total, serum 2023 024 [employer] [facility], [address], [place], [address], 4 23:35:52 vitamin B12, serum 2023 024 [employer] [facility], [address], [place], [address], 4 23:35:51 rapid strep group A, throat 2023 024 [facility] ([facility]), [address] [place], [address], 4 10:50:48 Referral rheumatol ogist referral 2024 025 shanice Oglesby MD, [address] [place] [address], [address], 5 16:32:19 Procedures None recorded. Surgeries None recorded. Imaging None recorded. Medication Orders azithromy dimitry 200 mg/5 mL oral suspensio n 2024 025 JAMES [facility], [address] [place], [address], 5 14:28:00 pantopraz ole 40 mg tablet,de layed release 2023 024 [email or web address] [facility], [address] [place], [address], 09:37:27 Patient TargetsNo targets recorded. Patient InstructionsNo instructions recorded. 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 Referral for Fibromyalgia Referring Physician: Tania Harrington, Family Medicine, Encounter Date: 03/07/2025 Results Created Date Observation Date Name Description Value Unit Range Abnormal Flag Note LastModifiedBy Organization Detail LastModifiedTime 10/07/19 24 10/07/2023 rapid strep group A, throa t Strep negati ve Not Available [facility] ([facility]) [address] [place], [address], 10/07/2023 10:05:02 03/05/20 24 03/05/2024 CBC WBC 8.2 x10 4.0-10 .5 Not Available [facility] [address], [address], 03/05/2024 11:37:48 03/05/20 24 03/05/2024 CBC RBC 4.69 x10 3.50-5 .50 Not Available [facility] [address], [address], 03/05/2024 11:37:48 03/05/20 24 03/05/2024 CBC HGB 14.4 g/dL 12.0-1 6.0 Not Available [facility] [address], [address], 03/05/2024 11:37:48 03/05/20 24 03/05/2024 CBC HCT 42.2 % 37.0-4 7.0 Not Available [facility] [address] [facility] 1, [place], [address], 03/05/2024 11:37:48 03/05/20 24 03/05/2024 CBC MCV 90.0 fL 80.0-9 9.9 Not Available [facility] [address] [facility] 1, [place], [address], 03/05/2024 11:37:48 03/05/20 24 03/05/2024 CBC MCH 30.8 pg 27.0-3 2.0 Not Available [facility] [address] Psychiatricmary ellen Mckenzie [facility] 1, [place], [address], 03/05/2024 11:37:48 03/05/20 24 03/05/2024 CBC MCHC 34.2 g/dL 32.0-3 6.0 Not Available [facility] [address] Psychiatricmary ellen Mckenzie [facility] 1, [place], [address], 03/05/2024 11:37:48 03/05/20 24 03/05/2024 CBC RDW 13.5 % 11.5-1 4.5 Not Available [facility] [address] Psychiatricmary ellen Mckenzie [facility] 1, [place], [address], 03/05/2024 11:37:48 03/05/20 24 03/05/2024 CBC plt 409.3 x10 140.0- 451.0 Not Available [facility] [address] Psychiatricmary ellen Mckenzie [facility] 1, [place], [address], 03/05/2024 11:37:48 03/05/20 24 03/05/2024 CBC lymphocytes % 20.4 % 20.0-5 0.0 Not Available [facility] [address] Psychiatricmary ellen Mckenzie [facility] 1, [place], [address], 03/05/2024 11:37:48 03/05/20 24 03/05/2024 CBC granulcytes % 70.8 % 30.0-7 0.0 high Not Available [facility] [address] [address], [place], [address], 03/05/2024 11:37:48 03/05/20 24 03/05/2024 CBC monocytes % 6.9 % 2.0-16 .0 Not Available [facility] [address] [address], [place], [address], 03/05/2024 11:37:48 03/05/20 24 03/05/2024 CBC granulcytes# 5.8 x10 Not Paty ilable [facility] [address] [address], [place], [address], 03/05/2024 11:37:48 03/05/20 24 03/05/2024 CBC lymphocytes # 1.7 x10 Not Available [facility] [address] [address], [place], [address], 03/05/2024 11:37:48 03/05/20 24 03/05/2024 CBC monocytes # 0.6 x10 Not Avai lable [facility] [address] [address], [place], [address], 03/05/2024 11:37:48 03/05/20 24 03/16/2024 ALPHA GAL PANEL beef (F27) IgE 0.40 kU/L high Not Available [facility] [address] [place], [address], 03/16/2024 23:35:46 03/05/20 24 03/16/2024 ALPHA GAL PANEL class 1 Not Available [facility] [address] [place], [address], 03/16/2024 23:35:46 03/05/20 24 03/16/2024 ALPHA GAL PANEL hines (F88) IgE 0.34 kU/L high Not Available [address] [address] [place], [address], 03/16/2024 23:35:46 03/05/20 24 03/16/2024 ALPHA GAL PANEL class 0/1 Not Available [address] [address] [place], [address], 03/16/2024 23:35:46 03/05/20 24 03/16/2024 ALPHA GAL PANEL pork (F26) IgE 0.30 kU/L high Not Available [facility] [address] [address] [place], [address], 03/16/2024 23:35:46 03/05/20 24 03/16/2024 ALPHA GAL PANEL class 0/1 Not Available [address] [address] [place], [address], 03/16/2024 23:35:46 03/05/20 24 03/16/2024 ALPHA GAL PANEL galactose alpha 1,3 galactose IgE 0.53 kU/L <0.10 high Resul ts above 0.1 kU/L indic ate an aller gen-s pecif ic IgE sensi tizat ion to galac tose- a-1,3 -gala ctose , and such patie nts are at risk for delay ed aller gic react ions follo wing beef, pork, or hines consu mptio n. Circu latin g IgE antib odies may remai n undet ectab le despi te a convi ncing clini izzy histo ry becau se these antib odies may be direc alayna towar ds aller gens revea led or alter ed durin g indus trial proce ssing , cooki ng, or diges tion and there fore do not exist in the origi nal food for which the patie nt is teste d. Somet imes indiv idual s diagn osed with chron ic urtic aria may devel op IgE antib odies direc alayna again st human thyro globu alisa. Such antib odies may cross -reac t with the bovin e thyro globu alisa used in Immun oCAP( R) Aller gen o215, alpha -Gal, leadi ng to a false -posi tive test resul t. A defin itive diagn osis shoul d be based on the evalu ation of both clini izzy and labor atory findi ngs and not on any singl e diagn ostic metho d. Addit ional infor cleve n can be found at http: //www .phad ia.co m Not Available [employer] [facility] [address] [place], [address], 03/16/2024 23:35:46 03/05/20 24 03/16/2024 INTER PRETA TION interpretati on Speci fic Level of Aller gen IGE Class kU/L Speci fic IGE Antib annika ----- ----- ---- ----- ----- ----- ---- 0 <0.10 Absen t/Und etect able 0/1 0.10- 0.34 Very Low Level 1 0.35- 0.69 Low Level 2 0.70- 3.49 Moder ate Level 3 3.50- 17.4 High Level 4 17.5- 49.9 Very High Level 5 50-10 0 Very High Level 6 >100 Very High Level The clini izzy relev ance of aller gen resul ts of 0.10- 0.34 kU/L are undet ermin ed and inten ded for speci alist use. Aller gens denot ed with a inclu de resul ts using one or more nathalie te speci fic reage nts. In those cases , the test was devel oped and its nathalie tical perfo rmanc e sophie cteri stics have been deter mined by [facility]. It has not been clear ed or appro eduardo by the U.S. Food and Drug Admin istra tion. This assay has been valid ated pursu ant to the CLIA regul ation s and is used for clini izzy purpo ses. Not Available [employer] [facility] [address] [place], [address], 03/16/2024 23:35:47 03/05/20 24 03/16/2024 COMPR EHENS KAYLA METAB OLIC PANEL glucose 77 mg/dL 65-99 normal Fasti ng refer ence inter kiah Not Available [address], [address], 03/16/2024 23:35:48 03/05/20 24 03/16/2024 COMPR EHENS KAYLA METAB OLIC PANEL urea nitrogen (BUN) 6 mg/dL 7-25 low Not Available [address], [address], 03/16/2024 23:35:48 03/05/20 24 03/16/2024 COMPR EHENS KAYLA METAB OLIC PANEL creatinine 0.66 mg/dL 0.50-0 .96 normal Not Available [address], [address], 03/16/2024 23:35:48 03/05/20 24 03/16/2024 COMPR EHENS KAYLA METAB OLIC PANEL eGFR 126 mL/mi n/1.7 3m2 > or = 60 normal Not Available [address], [address], 03/16/2024 23:35:48 03/05/20 24 03/16/2024 COMPR EHENS KAYLA METAB OLIC PANEL BUN/creatini ne ratio 9 (calc ) 6-22 normal Not Available [address], [address], 03/16/2024 23:35:48 03/05/20 24 03/16/2024 COMPR EHENS KAYLA METAB OLIC PANEL sodium 139 mmol/ L 135-14 6 normal Not Available [address], [address], 03/16/2024 23:35:48 03/05/20 24 03/16/2024 COMPR EHENS KAYLA METAB OLIC PANEL potassium 4.2 mmol/ L 3.5-5. 3 normal Not Available [address], [address], 03/16/2024 23:35:48 03/05/20 24 03/16/2024 COMPR EHENS KAYLA METAB OLIC PANEL chloride 104 mmol/ L 98-110 normal Not Available [address], [address], 03/16/2024 23:35:48 03/05/20 24 03/16/2024 COMPR EHENS KAYLA METAB OLIC PANEL carbon dioxide 26 mmol/ L 20-32 normal Not Available [address], [address], 03/16/2024 23:35:48 03/05/20 24 03/16/2024 COMPR EHENS KAYLA METAB OLIC PANEL calcium 9.6 mg/dL 8.6-10 .2 normal Not Available [address], [address], 03/16/2024 23:35:48 03/05/20 24 03/16/2024 COMPR EHENS KAYLA METAB OLIC PANEL protein, total 7.3 g/dL 6.1-8. 1 normal Not Available [address], [address], 03/16/2024 23:35:48 03/05/20 24 03/16/2024 COMPR EHENS KAYLA METAB OLIC PANEL albumin 4.6 g/dL 3.6-5. 1 normal Not Available [address], [address], 03/16/2024 23:35:48 03/05/20 24 03/16/2024 COMPR EHENS KAYLA METAB OLIC PANEL globulin 2.7 g/dL_ (calc ) 1.9-3. 7 normal Not Available [address], [address], 03/16/2024 23:35:48 03/05/20 24 03/16/2024 COMPR EHENS KAYLA METAB OLIC PANEL albumin/glob ulin ratio 1.7 (calc ) 1.0-2. 5 normal Not Available [address], [address], 03/16/2024 23:35:48 03/05/20 24 03/16/2024 COMPR EHENS KAYLA METAB OLIC PANEL bilirubin, total 0.7 mg/dL 0.2-1. 2 normal Not Available [address], [address], 03/16/2024 23:35:48 03/05/20 24 03/16/2024 COMPR EHENS KAYLA METAB OLIC PANEL alkaline phosphatase 95 U/L 31-125 normal Not Available [address], [address], 03/16/2024 23:35:48 03/05/20 24 03/16/2024 COMPR EHENS KAYLA METAB OLIC PANEL AST 14 U/L 10-30 normal Not Available [address], [address], 03/16/2024 23:35:48 03/05/20 24 03/16/2024 COMPR EHENS KAYLA METAB OLIC PANEL ALT 12 U/L 6-29 normal Not Available [address], [address], 03/16/2024 23:35:48 03/05/20 24 03/16/2024 T4, FREE T4, free 1.4 NG/dL 0.8-1. 8 normal Not Available [address], [address], 03/16/2024 23:35:49 03/05/20 24 03/16/2024 TSH TSH 1.96 mIU/L normal Refer ence Range > or = 20 Years 0.40- 4.50 Pregn dangelo Range s First trime ster 0.26- 2.66 Secon d trime ster 0.55- 2.73 Third trime ster 0.43- 2.91 Not Available [facility] [address] [place], [address], 03/16/2024 23:35:50 03/05/20 24 03/16/2024 VITAM IN B12 vitamin B12 445 pg/mL 200-11 00 normal Not Available [facility] [address] [address] [address], [place], [address], 03/16/2024 23:35:51 03/05/20 24 03/16/2024 VITAM IN D,25- OH,TO JEFF,I A vitamin D,25-oh,tota l,ia 26 NG/mL 30-100 low Vitam in D Statu s 25-OH Vitam in D: Defic iency : <20 ng/mL Insuf ficie ncy: 20 - 29 ng/mL Optim al: > or = 30 ng/mL For 25-OH Vitam in D testi ng on patie nts on D2-murphy pplem entat ion and patie nts for whom quant itati on of D2 and D3 fract ions is requi red, the [facility](TM ) 25-OH VIT D, (D2,D 3), LC/MS /MS is recom marni d: order code 76009 (tony ents >2yrs ). See Note 1 Note 1 For addit ional infor faustino cardenas refer to http: //tino Jones stDia gnost ics.c om/fa q/FAQ 199 (This link is being provi ded for infor cleve junior/ harry ramachandran purpo ses only. ) Not Available [employer] [facility] [address] [address], [place], [address], 03/16/2024 23:35:52 03/05/20 24 03/05/2024 urina lysis , compl ete color yellow Not Available [facility] ([facility]) [address] [place], [address], 03/05/2024 10:36:31 03/05/20 24 03/05/2024 urina lysis , compl ete clarity slight ly cloudy clear abnormal Not Available [facility] ([facility]) [address] [place], [address], 03/05/2024 10:36:31 03/05/20 24 03/05/2024 urina lysis , compl ete glucose NG negati ve Not Available [facility] ([facility]) [address] [place], [address], 03/05/2024 10:36:31 03/05/20 24 03/05/2024 urina lysis , compl ete bilirubin 1+ negati ve abnormal Not Available [facility] ([facility]) [address] [place], [address], 03/05/2024 10:36:31 03/05/20 24 03/05/2024 urina lysis , compl ete ketones NG negati ve Not Available [facility] ([facility]) [address] [place], [address], 03/05/2024 10:36:31 03/05/20 24 03/05/2024 urina lysis , compl ete specific gravity >=1.03 0 1.005- 1.025 Not Available [facility] ([facility]) [address] [place], [address], 03/05/2024 10:36:31 03/05/20 24 03/05/2024 urina lysis , compl ete pH 5.5 5.0-7. 0 Not Available [facility] ([facility]) [address] [place], [address], 03/05/2024 10:36:31 03/05/20 24 03/05/2024 urina lysis , compl ete protein 1+ abnormal Not Available [facility] ([facility]) [address] [place], [address], 03/05/2024 10:36:31 03/05/20 24 03/05/2024 urina lysis , compl ete uro 0.2 Not Available [facility] ([facility]) [address] [place], [address], 03/05/2024 10:36:31 03/05/20 24 03/05/2024 urina lysis , compl ete nitrate NG negati ve Not Available [facility] ([facility]) [address] [place], [address], 03/05/2024 10:36:31 03/05/20 24 03/05/2024 urina lysis , compl ete blood NG negati ve Not Available [facility] ([facility]) [address] [place], [address], 03/05/2024 10:36:31 03/05/20 24 03/05/2024 urina lysis , compl ete leukocytes NG negati ve Not Available [facility] ([facility]) [address] [place], [address], 03/05/2024 10:36:31 03/05/20 24 03/05/2024 urina lysis , compl ete WBC 4-6 0 Not Available [facility] ([facility]) [address] [place], [address], 03/05/2024 10:36:31 03/05/20 24 03/05/2024 urina lysis , compl ete RBC 0-1 0 Not Available [facility] ([facility]) [address] [place], [address], 03/05/2024 10:36:31 03/05/20 24 03/05/2024 urina lysis , compl ete epi cells 15-18 0 abnormal Not Available [facility] ([facility]) [address] [place], [address], 03/05/2024 10:36:31 03/05/20 24 03/05/2024 urina lysis , compl ete bacteria 1+ mixed darryl abnormal Not Available [facility] ([facility]) [address] [place], [address], 03/05/2024 10:36:31 03/05/20 24 03/05/2024 urina lysis , compl ete other 2++ mucus thread s abnormal Not Available [facility] ([facility]) [address] [place], [address], 03/05/2024 10:36:31 Result Notes None recorded. Problems Name Problem SNOMED Code Status Onset Date Resolution Date Notes Provider Name and Address Organization Details Recorded Time Low back pain 288930529 Active 2022 DEONTE matson [facility] 5 09:40:20 Idiopathic peripheral neuropathy 13870161 Active 2022 DEONTE matson [facility] 5 09:40:30 Chronic constipation 055158647 Active 2022 DEONTE matson [facility] 5 09:40:20 Fibromyalgia 870800708 Active 2022 Tania Harrington MD [address] [place], [address], [facility], ChipL[facility]ushi[facility]ushi 5 09:59:02 Chest pain 93686174 Active 2022 DEONTE matson [facility], ChipL[facility]ushi[facility] 5 09:40:20 Palpitations 65430543 Active 2022 DEONTE BAXTER [facility] 5 09:40:21 Fatigue 13852204 Active 2023 DEONTE BAXTER [facility] 5 09:40:21 Generalized abdominal pain 648234923 Active 2023 DEONTE SAHIL [facility] 5 09:40:20 Headache 75655307 Active 2023 [facility] SAHIL [facility] 5 09:40:30 Dental caries 89202513 Active 2024 DEONTE SAHIL [facility] 5 12:33:51 Notes:kevin gal Problem Notes None recorded. Medical Equipment None Reported. Allergies Allergen ID Allergen Name Allergen Category Reaction Reaction Severity Criticality Documentation Date Start Date Code Code System Note Provider Name and Address Organization Details Recorded Time 2704 amoxicill in medicatio n rash mild Not available 02/11/2023 723 RxNorm DEONTEEnmanuel BAXTER [facility] 3 09:46:59 2705 metoprolo l Not available rash mild Not available 02/11/2023 6918 RxNorm DEONTEEnmanuel BAXTER [facility] 3 09:47:19 2706 dextromet horphan hydrobrom [place] medicatio n angioedem a mild Not available 02/11/2023 19362 0 RxNorm DEONTEEnmanuel BAXTER [facility] 3 09:47:41 67714 Product containin g beta adrenergi c receptor antagonis t (product) medicatio n rash Not available Not available 05/03/2023 57234 009 SNOMED React ion: Rash; Comme nt: Recor ded 12/20 8:45A M by Brand i Norri s, Offic e Visit ; Promo alayna; Signi ficjorge ce: *; Reaso n: Drug aller gy; ; Not Available [facility] 3 02:27:04 32747 cefdinir medicatio n rash Not available Not available 05/03/2023 91981 RxNorm React ion: Rash; Comme nt: Recor ded 12/20 8:45A M by Brand i Norri s, Offic e Visit ; Promo alayna; Signi ficjorge ce: *; Reaso n: Drug aller gy; ; Not Available [facility] 3 02:27:04 79237 penicilli n V potassium medicatio n Not available Not available Not available 05/03/2023 5 RxNorm Comme nt: Recor ded 12/20 8:45A M by Brand i Norri s, Offic e Visit ; Promo alayna; Signi ficjorge ce: *; Reaso n: Drug aller gy; ; Not Available [facility] 3 02:27:04 40441 omeprazol e / sodium bicarbona te medicatio n rash Not available Not available 05/03/2023 63995 7 RxNorm React ion: Rash, Swell ing; Comme nt: Recor ded 12/20 8:45A M by Brand i Norri s, Offic e Visit ; Promo alayna; Signi ficjorge ce: *; Reaso n: Drug aller gy; ; Not Available [facility] 3 02:27:05 90915 acetamino phen / dextromet horphan / doxylamin e medicatio n rash Not available Not available 05/03/2023 79421 8 RxNorm React ion: Rash, Swell ing; Comme nt: Recor ded 12/20 8:45A M by Brand i Norri s, Offic e Visit ; Promo alayna; Signi fican ce: *; Reaso n: Drug aller gy; ; Not Available [facility] 3 02:27:05 50060 Galactose -alpha-1, 3 galactose (substanc e) food,medi cation Not available Not available Not available 09/09/2023 67555 8006 SNOMED Tati Pliler [facility] [place] 3 09:43:23 Medications Name Sig Start Date Stop Date Status Note LastModified by Organization Details LastModified Time eq sinus & congestio n 30mg tab TAKE 2 TABLETS BY MOUTH THREE TIMES DAILY NEEDED FOR NASAL CONGESTI ON 02/11 completed Not Available Not Available Not Available cyclobenz aprine 10 mg tablet TAKE 1 TABLET BY MOUTH THREE TIMES DAILY NEEDED FOR SPASM FOR 30 DAYS 02/11 completed Not Available Not Available Not Available methocarb ashley 500 mg tablet TAKE 2 TABLETS BY MOUTH 4 TIMES DAILY 05/18 completed Not Available Not Available Not Available BD Luer-Mindi Syringe 3 mL 25 x 1 1/2 USE DIRECTED WITH B-12 INJECTIO NS 02/11 completed Not Available Not Available Not Available venlafaxi ne ER 37.5 mg capsule,e xtended release 24 hr TAKE 1 CAPSULE BY MOUTH ONCE DAILY FOR 7 DAYS THEN 1 EVERY OTHER DAY 02/11 completed Not Available Not Available Not Available venlafaxi ne ER 75 mg capsule,e xtended release 24 hr TAKE 1 CAPSULE BY MOUTH ONCE DAILY BEGIN 75MG DOSE AFTER ONE WEEK OF 37.5MG DAILY 02/11 completed Not Available Not Available Not Available prednisol one sodium phosphate 15 mg/5 mL (3 mg/mL) oral solution TAKE 10ml BY MOUTH DAILY FOR FIVE DAYS 02/11 completed Not Available Not Available Not Available trazodone 50 mg tablet TAKE 1 TABLET BY MOUTH AT BEDTIME NEEDED FOR INSOMNIA 02/11 completed Not Available Not Available Not Available cetirizin e 10 mg tablet TAKE 1 TABLET BY MOUTH ONCE DAILY 02/11 completed Not Available Not Available Not Available ibuprofen 800 mg tablet TAKE 1 TABLET BY MOUTH EVERY 8 HOURS NEEDED FOR PAIN 02/11 completed Not Available Not Available Not Available fluconazo le 150 mg tablet TAKE ONE TABLET BY MOUTH EVERY 3 DAYS FOR 2 DOSES, REPEAT IN 72 HOURS IF STILL SYMPTOMA TIC 03/05 completed Not Available Not Available Not Available prochlorp erazine maleate 5 mg tablet TAKE 1 TABLET BY MOUTH ONCE DAILY NEEDED FOR HEADACHE ;MAY TAKE UP TO 3 TIMES DAILY 03/07 completed Not Available Not Available Not Available prednison e 20 mg tablet TAKE 1 TABLET BY MOUTH TWICE DAILY 02/11 completed Not Available Not Available Not Available sertralin e 100 mg tablet TAKE 1 TABLET BY MOUTH ONCE DAILY 02/11 completed Not Available Not Available Not Available tramadol 50 mg tablet TAKE 1 TABLET BY MOUTH EVERY 6 HOURS NEEDED FOR PAIN 02/11 completed Not Available Not Available Not Available amitripty line 50 mg tablet TAKE 1 TABLET BY MOUTH AT BEDTIME 03/07 completed Not Available Not Available Not Available triamcino lone acetonide 0.1 % topical cream APPLY TO AFFECTED AREAS OF EXTREMIT IES TWICE DAILY FOR TWO WEEKS THEN NEEDED. DO NOT APPLY TO FACE OR GROIN. 06/18 completed Not Available Not Available Not Available ketorolac 10 mg tablet TAKE 1 TABLET BY MOUTH THREE TIMES DAILY NEEDED FOR PAIN 05/18 completed Not Available Not Available Not Available prednison e 10 mg tablets in a dose pack TAKE BY MOUTH DIRECTED ON INSIDE OF PACKAGE 03/07 completed Not Available Not Available Not Available famotidin e 20 mg tablet Take 1 tablet twice a day by oral route for 30 days. 10/07 completed Not Available Not Available Not Available amitripty line 25 mg tablet TAKE 1 TABLET BY MOUTH ONCE DAILY 03/07 completed Not Available Not Available Not Available amitripty line 10 mg tablet TAKE 1 TABLET BY MOUTH AT BEDTIME FOR 7 DAYS THEN INCREASE TO 2 TABLETS AT BEDTIME, CAN FURTHER INCREASE TO 3 TABLETS IF NOT EFFECTIV E. 04/28 completed Not Available Not Available Not Available pantopraz ole 40 mg tablet,de layed release TAKE ONE TABLET BY MOUTH EVERY DAY FOR 30 DAYS 03/07 completed Not Available Not Available Not Available cyanocoba tree (vit B-12) 1,000 mcg/mL injection solution INJECT 1 ML INTRAMUS CULARLY ONCE EVERY MONTH, START January02/11 completed Not Available Not Available Not Available gabapenti n 300 mg capsule TAKE 1 CAPSULE BY MOUTH ONCE DAILY IN THE EVENING FOR 30 DAYS 04/27 completed Not Available Not Available Not Available mupirocin 2 % topical ointment APPLY OINTMENT TOPICALL Y TO AFFECTED AREA TWICE DAILY 03/07 completed Not Available Not Available Not Available diclofena c sodium 50 mg tablet,de layed release TAKE 1 TABLET BY MOUTH THREE TIMES DAILY 02/11 completed Not Available Not Available Not Available famotidin e 40 mg/5 mL (8 mg/mL) oral suspensio n TAKE 2.5ml BY MOUTH TWICE DAILY FOR 30 DAYS 03/05 completed Not Available Not Available Not Available azelastin e 137 mcg (0.1 %) nasal spray USE 1 SPRAY(S) IN EACH NOSTRIL TWICE DAILY NEEDED 02/11 completed Not Available Not Available Not Available epinephri ne 0.3 mg/0.3 mL injection , auto-inje ctor INJECT CONTENTS OF 1 PEN NEEDED FOR ALLERGIC REACTION /ANAPHYL AXIS active Not Available Not Available No t Available azithromy dimitry 200 mg/5 mL oral suspensio n TAKE 12.5ml BY MOUTH ON DAY ONE, THEN 6.25 ML BY MOUTH ONCE DAILY for FOUR DAYS active Not Available Not Available No t Available methylpre dnisolone 4 mg tablets in a dose pack TAKE BY MOUTH DIRECTED ON INSIDE OF PACKAGE 05/18 completed Not Available Not Available Not Available ondansetr on 4 mg disintegr ating tablet DISSOLVE 1 TABLET IN MOUTH EVERY 8 HOURS NEEDED FOR NAUSEA AND VOMITING 03/05 completed Not Available Not Available Not Available fluticaso ne propionat e 50 mcg/actua tion nasal spray,mg pension USE 2 SPRAY(S) IN EACH NOSTRIL ONCE DAILY 02/11 completed Not Available Not Available Not Available sertralin e 50 mg tablet TAKE 1 TABLET BY MOUTH ONCE DAILY 02/11 completed Not Available Not Available Not Available amoxicill in 875 mg-potass ium clavulana te 125 mg tablet TAKE ONE TABLET BY MOUTH TWICE DAILY 03/07 completed Not Available Not Available Not Available rizatript an 5 mg tablet TAKE ONE TABLET BY MOUTH NEEDED FOR 30 DAYS NEEDED FOR MIGRAINE HEADACHE . MAY REPEAT DOSE ONCE IN 2 HOURS 03/07 completed Not Available Not Available Not Available Sprintec (28) 0.25 mg-0.035 mg tablet TAKE 1 TABLET BY MOUTH ONCE DAILY DIRECTED 02/11 completed Not Available Not Available Not Available duloxetin e 30 mg capsule,d elayed release TAKE 1 CAPSULE BY MOUTH ONCE DAILY 03/07 completed Not Available Not Available Not Available EpiPen as directed for severe allergic reaction 03/07 completed One epipen 2 yani; Recorded 09/04/20 2:43PM by Deonte Baxter, Office Visit; Refill Quantity : 1; Packet; Not Available Not Available Not Available azithromy dimitry day one then 3ml daily x 4 days. 05/18 completed Recorded 12/21/19 9:02AM by Tania Harrington MD, Office Visit; Refill Quantity : 0; Not Available Not Available Not Available ipratropi um bromide three times daily, as needed 05/18 completed Recorded 11/08/19 11:03AM by Deonte Baxter, Office Visit; Refill Quantity : 1; Packet; Not Available Not Available Not Available pseudoeph edrine HCl three times daily, as needed 06/18 completed new dose.; Recorded 11/08/19 11:03AM by Deonte Baxter, Office Visit; Refill Quantity : 40; Tablet; Not Available Not Available Not Available Amitiza 24 mcg capsule Take by oral route for 30 days. 05/19 completed Not Available Not Available Not Available lubiprost one 8 mcg capsule Take by oral route for 30 days. 05/19 completed Not Available Not Available Not Available Linzess 145 mcg capsule TAKE ONE CAPSULE BY MOUTH EVERY DAY 05/05 completed Not Available Not Available Not Available Vitamin B12 05/18 completed 0; Recorded 12/21/19 8:45AM by Deonte Baxter, Office Visit; Not Available Not Available Not Available Linzess 72 mcg capsule take 1 capsule BY MOUTH EVERY DAY FOR constipa tion 02/11 completed Not Available Not Available Not Available Ajovy 225 mg/1.5 mL subcutane ous auto-inje ctor INJECT ONE PEN SUBCUTAN EOUSLY ONCE A MONTH 03/07 completed Not Available Not Available Not Available Vitals Date Recorded Body height Body mass index (BMI) Body weight Oxygen saturation Oxygen saturation in Arterial blood by Pulse oximetry Heart rate Systolic And Diastolic Provider Name and Address Organization Details Last Updated DateTime 4 161.29 cm 26.2 kg/m2 32112.8 6 g 97 % 97 % 66 /min 100/74 mm[Hg] DEONTE BAXTER [facility] 4 09:43:20 Date Recorded Body height Body mass index (BMI) Body weight Heart rate Systolic And Diastolic Provider Name and Address Organization Details Last Updated DateTime 03/05/2024 161.29 cm 26.5 kg/m2 99982.04 g 78 /min 118/89 mm[Hg] NALLELY KOENIG [facility] 4 10:05:11 Date Recorded Body weight Oxygen saturation Oxygen saturation in Arterial blood by Pulse oximetry Systolic And Diastolic Provider Name and Address Organization Details Last Updated DateTime 03/07/2025 93740.37 g 99 % 99 % 126/80 mm[Hg] [facility] 09:39:59 Social History None recorded. Functional Status Question Answer Note LastModified by Organizat ion Details LastModified Time Do you use any illicit or recreational drugs? No [email or web address] Information not available 02/11/2023 What is your level of alcohol consumption? None [email or web address] Information not available 02/11/2023 Mental Status None recorded. Family History Nothing Reported Notes:In good health: Mother Medical History No medical history recorded. Gynecological HistoryNo gynecological history recorded. Obstetrics History GPAL:G 0 P 0 0 0 0 Immunizations Vaccine Type Date Status Note Provider Nam e and Address Organization Details Recorded Time Rabies - IM fibroblast culture 5 completed Not Available [facility] 03/07/2025 09:34:14 Rabies - IM fibroblast culture 5 completed Not Available [facility] 03/07/2025 09:34:14 Rabies - IM fibroblast culture 5 completed Not Available [facility] 03/07/2025 09:34:14 Rabies - IM fibroblast culture 5 completed Not Available [facility] 03/07/2025 09:34:14 IPV 0 completed [facility]ONTE matson [facility] 03/07/2023 11:10:05 IPV 0 completed DEONTE BAXTER null, [facility] 03/07/2023 11:10:05 IPV 1 completed DEONTE BAXTER null, [facility] 03/07/2023 11:10:05 IPV 5 completed DEONTE BAXTER null, [facility] 03/07/2023 11:10:05 MMR 5 completed DEONTE BAXTER null, [facility] 03/07/2023 11:10:05 MMR 0 completed DEONTE BAXTER null, [facility] 03/07/2023 11:10:05 influenza, unspecified formulation 8 completed DEONTE BAXTER null, [facility] 03/07/2023 11:10:05 Tdap 3 completed DEONTE BAXTER null, [facility] 03/07/2023 11:10:05 varicella 1 completed DEONTE BAXTER null, [facility] 03/07/2023 11:10:05 varicella 7 completed DEONTE BAXTER null, [facility] 03/07/2023 11:10:05 Hep B, unspecified formulation 0 completed DEONTE BAXTER null, [facility] 03/07/2023 11:10:05 Hep B, unspecified formulation 0 completed DEONTE BAXTER null, [facility] 03/07/2023 11:10:05 Hep B, unspecified formulation 9 completed DEONTE BAXTER null, [facility] 03/07/2023 11:10:05 Hib (PRP-T) 0 completed DEONTE BAXTER null, [facility] 03/07/2023 11:10:05 Hib (PRP-T) 0 completed DEONTE BAXTER null, [facility] 03/07/2023 11:10:05 Hib (PRP-T) 0 completed DEONTE BAXTER null, [facility] 03/07/2023 11:10:05 Hib (PRP-T) 1 completed DEONTE BAXTER null, [facility] 03/07/2023 11:10:05 meningococcal MCV4P 7 completed DEONTE BAXTER null, [facility] 03/07/2023 11:10:05 DTaP 0 completed DEONTE BAXTER null, [facility] 03/07/2023 11:10:05 DTaP 0 completed DEONTE BAXTER null, [facility] 03/07/2023 11:10:06 DTaP 0 completed DEONTE BAXTER null, [facility] 03/07/2023 11:10:06 DTaP 1 completed DEONTE BAXTER null, [facility] 03/07/2023 11:10:06 DTaP 5 completed DEONTE BAXTER null, [facility] 03/07/2023 11:10:06 Past Encounters Encounter ID Performer Location Encounter Start Date Encounter Closed Date Diagnosis/Indication Diagnosis SNOMED-CT Code Diagnosis ICD10 Code Diagnosis IMO Codes Diagnosis Note [id number] Tania Harrington MD [facility] ([facility]) [address] [place] [phone] 5 02/11/2023 09:38:20 02/11/2023 11:01:28 Low back pain 579994986 M54.50 THis is chronic and worsening. Idiopathic peripheral neuropathy 03692465 G60.9 bilateral feet. [id number] Tania Harrington MD [facility] ([facility]) [address] [place] [address] [id number] 5 03/07/2023 10:51:38 03/07/2023 12:43:21 Low back pain 004961225 M54.50 THis is chronic and worsening. Idiopathic peripheral neuropathy 36394524 G60.9 bilateral feet, worsening. [id number] SHADIA ARAGON-Rea [facility] ([facility]) [address] [place] [address] [id number] 5 04/16/2023 10:02:01 04/16/2023 15:12:07 Pain in finger of right hand 5400824817 94479 M79.644 Right index finger pain. Reassured with negative x-ray. Will send x-ray for over read. Should continue to wear finger splint for 1 week and bend/use finger as tolerated after 1 week. RICE treatment recommende d. Can take tylenol/ib uprofen as needed for pain. If worsening pain or no improvemen t in 1-2 weeks, should be re-evaluat ed for probable repeat x-ray. [id number] Tania Harrington MD [facility] ([facility]) [address] [place] [address] [phone] 5 04/28/2023 15:03:55 04/28/2023 16:59:41 Chronic constipation 535516579 K59.09 unable to take Linzess due to beef sensitivit y. Acute pharyngitis 168716 003 J02.9 [id number] Tania Harrington MD [facility] ([facility]) [address] [place] [address] [phone] 5 05/19/2023 08:57:49 05/19/2023 11:31:14 Low back pain 539695020 M54.50 Not much change Fibromyalgia 384199060 M 79.7 Viral pharyngitis 902221 7 J02.8 [id number] Tania Harrington MD [facility] ([facility]) [address] [place] [address] [phone] 5 06/18/2023 13:31:46 06/18/2023 17:33:33 Chest pain 57699183 R07.9 Low blood pressure 12720 003 I95.9 Palpitations 75538180 R0 0.2 increased frequency. [id number] Tania Harrington MD [facility] ([facility]) [address] [place] [address] [phone] 5 08/01/2023 14:14:34 08/01/2023 16:34:44 Acute pharyngitis 584169075 J02.9 [id number] Melissa Story MD [facility] ([facility]) [address] [place] [address] [phone] 5 08/14/2023 11:31:00 08/14/2023 12:17:08 Jaw pain 095096251 R68.84 limited meds she can take due to alpha-gal. been icing it. cont icing. pureed/sof t food/drink . [id number] HUANG ARAGON [facility] ([facility]) [address] [place] [address] [phone] 5 09/09/2023 08:31:58 09/09/2023 18:02:40 Gastroesophageal reflux disease 541994655 K21.9 Will start famotidine BID today. Discussed with patient that GERD symptoms are likely associated with diet. Encouraged to decrease greasy, fatty, and spicy foods as well as sugary and carbonated drinks. Encouraged patient to establish with a PCP for maintenanc e control of symptoms. Patient has no chest pain today. Discussed with patient that if chest pain occurs, he should go to ED for evaluation . Patient verbalizes understand ing. If no improvemen t in 5-7 days, will consider H. pylori testing. Patient agrees to plan of care. [id number] WILL GARCIA PA-C [facility] ([facility]) [address] [place] [address] [phone] 5 09/26/2023 10:43:35 09/26/2023 14:13:53 [id number] Tania Harrington MD [facility] ([facility]) [address] [place] [address] [phone] 5 10/07/2023 09:19:30 10/07/2023 14:14:25 Abdominal pain 27342577 R10.9 Acute pharyngitis 289795 003 J02.9 Allergy to wsjgotzxg-uvawy-3,3 galactose 370971289 Z88.8 [id number] Tania Harrington MD [facility] ([facility]) [address] [place], [place] [phone] 5 03/05/2024 09:39:31 03/05/2024 10:54:30 Fatigue 96246057 R53.83 Generalize d abdominal pain 675226099 R10.84 Headache 81669614 R51.9 Appt. with Neurologis t in March Allergy to fxnaaacgj-vmefh-6,3 galactose 407382771 Z88.8 [id number] NICHOL DEVLIN MELON PACKER [facility] ([facility]) [address] [place] [address] 5 10/13/2024 13:27:47 10/18/2024 08:09:04 [id number] SHADIA EASTMAN [facility] ([facility]) [address] [place], [place] [phone] 5 10/13/2024 13:35:55 10/13/2024 13:41:01 [id number] Tania Harrington MD [facility] ([facility]) [address] [place] [address] 5 03/07/2025 09:31:24 03/08/2025 11:52:14 Dental caries 20869830 K02.9 [id number] Fibromyalgia 060597067 M 79.7 99137 Allergy to saljrgqsf-byfgx-8,3 galactose 756733969 Z91.018 [id number] Health Concerns Section Related Observation LastModified by Organization Detai ls LastModified Time None Recorded Concern Status LastModified by Organization Details LastModified Time None Recorded Advance Directives Directive None Recorded Payers Insurance Date Sequence Insurance Name Policy Number Policy Leon Covered Member ID Leon Member ID Guarantor Name 03/06/2025 1 [facility] (MEDICAID HMO) Peyton Webber [id number] Peyton Webber 03/06/2025 [facility] (MEDICAID HMO) Peyton Webber [id number] Peyton Webber Notes Date Note Type Note Provider Name and Address Organization Details Recorded Time 4 text/html Sore ThroatReported by PatientHPIFor quality, patient reportsdifficulty swallowing. For severity, patient reportsworsening. For location, patient reportsbilateral. For onset/timing, patient reportsgradual. For associated symptoms, patient reportsno feverandno cough. Abdominal PainReported by PatientAbdominal PainFor quality, patient reportsburningandgnawing. For associated symptoms, patient reportsnausea,diarrhea, anddecreased appetitebut reportsno vomitingandno constipation. For location, patient reportsepigastric. For severity, patient reportsmoderateandpain level 4/10. For duration, patient reportsconstant.Continues to have abdominal pain with occassional diarrhea. Nausea with no emesis. Tania Harrington MD [address] [place] [address], [phone], [facility] 10/07/2023 10:09:51 4 text/html FatigueReported by PatientHPIFor quality, patient reportsgeneralized. For severity, patient reportsnormal sleep patterns. For context, patient reportsno new stressors in life. For associated symptoms, patient reportsno depression,no alcohol consumption,no anxiety,no sleep disturbances, andnormal sleep. Tania Harrington MD [address] [place], [address], [facility] 03/05/2024 10:40:18 5 text/html Patient reports that she fell and hit her head on a wooden chair. Has had nausea and vomiting. Unable to maintain normal posture. Wearing sunglasses due to photophobia. Head and neck pain. SHADIA EASTMAN [address] [place], [phone], [facility] 10/13/2024 13:38:53 5 text/html Has been off all medications since October, she found out that she is allergic to most of them.Here today and has dental pain and has an appt on 04/15/25 but needs abx before then. Tania Harrington MD [address] [place] [address], [phone], [facility], Sukhjinder 03/07/2025 10:02:03 OBGyn Episode No OBEpisode recorded.
--- OUTSIDE RECORDS SUMMARY | 2025-08-21 21:52 | XMS_ITS | Encounter Summary ---
Author Organization [employer] [facility] Address [address] [place] [address] Care Team Providers Care Structural Steel Equipment Erector Name Role Phone Unavailable Primary Care Provider Unavailabl e Encounter Details Date Type Department Care Team (Latest Contact Info) Description 1999 Outpatient Historical HIS [facility] Vikas Fonseca MD [address] [place] [phone] Tear film insufficiency, unspecified (Primary Dx); Radicular cyst Social History Tobacco Use Types Packs/Day Years Used Date Smoking Tobacco: Never Assessed Comments Unknown Sex and Gender Information Value Date Recorded Sex Assigned at Not on file Legal Sex Female 4:29 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
--- OUTSIDE RECORDS SUMMARY | 2025-08-21 21:53 | XMS_ITS | Encounter Summary ---
Author Organization [employer] [facility] Address [address] [place] [address] Care Team Providers Care Anhydrous Ammonia Production Supervisor Name Role Phone Unavailable Primary Care Provider Unavailabl e Encounter Details Date Type Department Care Team (Latest Contact Info) Description 1999 Outpatient Historical HIS [facility] Vikas Fonseca MD [address] [place] [phone] Unspecified congenital anomaly of eye (Primary Dx) Social History Tobacco Use Types Packs/Day Years Used Date Smoking Tobacco: Never Assessed Comments Unknown Sex and Gender Information Value Date Recorded Sex Assigned at Not on file 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
--- OUTSIDE RECORDS SUMMARY | 2025-08-21 21:53 | XMS_ITS | Encounter Summary ---
Author Organization [employer] [facility] Address [address] [place] [address] Care Team Providers Care Commercial Marketing Specialist Name Role Phone Unavailable Primary Care Provider Unavailabl e Encounter Details Date Type Department Care Team (Latest Contact Info) Description 1999 Outpatient Historical HIS [facility] Vikas Fonseca MD [address] [place] [address] Jaundice, unspecified, not of (Primary Dx) Social History Tobacco Use Types Packs/Day Years Used Date Smoking Tobacco: Never Assessed Comments Unknown Sex and Gender Information Value Date Recorded Sex Assigned at Not on file 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
--- OUTSIDE RECORDS SUMMARY | 2025-08-21 21:53 | XMS_ITS | Clinical Summary ---
Author Organization [employer] [facility] Address [address] [place]ner[place]: Epic Prelude ADT KATHLEEN TEJEDA [address] Care Team Providers Care Public Safety Officer Name Role Phone Unavailable Primary Care Provider [...] on file Legal Sex Female 4:29 AM FAST FOOD SUPERVISOR Gender Identity Not on file Sexual Orientation [...]
--- OUTSIDE RECORDS SUMMARY | 2025-08-21 21:53 | XMS_ITS | Encounter Summary ---
Author Organization [employer] [facility] Address [address] [place] [address] Care Team Providers Care Senior Bi Architect Name Role Phone Unavailable Primary Care Provider Unavailabl e Encounter Details Date Type Department Care Team (Latest Contact Info) Description 1999 Outpatient Historical HIS [facility] Vikas Fonseca MD [address] [place] [address] Acute upper respiratory infections of unspecified site (Primary Dx) Social History Tobacco Use Types Packs/Day Years Used Date Smoking Tobacco: Never Assessed Comments Unknown Sex and Gender Information Value Date Recorded Sex Assigned at Not on file 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
--- OUTSIDE RECORDS SUMMARY | 2025-08-21 21:53 | XMS_ITS | Encounter Summary ---
Author Organization [employer] [facility] Address [address] [place] [address] Care Team Providers Care Grounds Manager Name Role Phone Unavailable Primary Care Provider Unavailabl e Encounter Details Date Type Department Care Team (Latest Contact Info) Description 1999 Outpatient Historical HIS [facility] Vikas Fonseca MD [address] [place] [address] Diaper or napkin rash (Primary Dx) Social History Tobacco Use Types Packs/Day Years Used Date Smoking Tobacco: Never Assessed Comments Unknown Sex and Gender Information Value Date Recorded Sex Assigned at Not on file Legal Sex Female 4:29 AM 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
--- OUTSIDE RECORDS SUMMARY | 2025-08-21 21:53 | XMS_ITS | Encounter Summary ---
Author Organization [employer] [facility] Address [address] [place] [address] Care Team Providers Care Net Developer Name Role Phone Unavailable Primary Care Provider Unavailabl e Encounter Details Date Type Department Care Team (Latest Contact Info) Description 1999 Outpatient Historical HIS [facility] Vikas Fonseca MD [address] [place] [address] Tear film insufficiency, unspecified (Primary Dx); Unspecified circulatory system disorder Social History Tobacco Use Types Packs/Day Years Used Date Smoking Tobacco: Never Assessed Comments Unknown Sex and Gender Information Value Date Recorded Sex Assigned at Not on file Legal Sex Female 4:[address] V[address]OR Gender Identity Not on file Sexual Orientation Not on file documented as of this encounter Plan of Treatment Not on file documented as of this encounter Visit Diagnoses Diagnosis Tear film insufficiency, unspecified- Primary Unspecified circulatory system disorder documented in this encounter
--- OUTSIDE RECORDS SUMMARY | 2025-08-21 21:53 | XMS_ITS | Encounter Summary ---
Author Organization [employer] [facility] Address [address] [place] [address] Care Team Providers Care Line Crewman Name Role Phone Unavailable Primary Care Provider Unavailabl e Encounter Details Date Type Department Care Team (Latest Contact Info) Description 1999 Outpatient Historical HIS [facility] Vikas Fonseca MD [address] [place] [phone] Unspecified otitis media (Primary Dx) Social History Tobacco Use Types Packs/Day Years Used Date Smoking Tobacco: Never Assessed Comments Unknown Sex and Gender Information Value Date Recorded Sex Assigned at Not on file Legal Sex Female 4:29 AM DIRECTOR COMPENSATION Gender Identity Not on file Sexual Orientation Not on file documented as of this encounter Plan of Treatment Not on file documented as of this encounter Visit Diagnoses Diagnosis Unspecified otitis media- Primary documented in this encounter
--- OUTSIDE RECORDS SUMMARY | 2025-08-21 21:53 | XMS_ITS | Clinical Summary ---
Author Organization [facility] Address [address] [place] [id number] Care Team Providers Care Executive Coach Name Role Phone Unavailable Primary Care Provider [...] 3 Active fluticasone propionate (FLONASE) 50 mcg/spray [place], Suspension nasal inhalerIndicati ons:Allergy to pollen Administer 2 Sprays in each nostril daily. 16 Gram 5 3 Active azelastine (ASTELIN) 137 mcg/actuation nasal sprayIndication s:Allergy to pollen Administer 1 [place] in each nostril 2 times daily as needed (rhinitis). 30 mL 5 3 Active Active Problems No known active problems Encounters Date Type Department Care Team Description 07/26/2025 External Device Data [facility]STRA[facility] Provider, Abstract 06/21/2025 External Device Data [facility] Provider, Abstract 06/21/2025 External Device Data [facility] Provider, Abstract 05/25/2025 External Device Data [facility] Provider, Abstract from Last 3 Months Immunizations Immunization Administration [...] on file Legal Sex Female 2:27 PM CLINICAL NURSING COORDINATOR Gender Identity Not on file Sexual Orientation Not on file Last Filed Vital Signs Vital Sign Reading Time Taken Comments Blood Pressure 128/82 11/04/2022 11:19 AM CLINICAL NURSING COORDINATOR Pulse - - Temperature - - Respiratory Rate - - Oxygen Saturation - - Inhaled Oxygen Concentration - - Weight 73.5 kg (162 lb) 11/04/2022 11:19 AM CLINICAL NURSING COORDINATOR Height 160 cm (5' 3 ) 11/04/2022 11:19 AM CLINICAL NURSING COORDINATOR Body Mass Index 28.7 11/04/2022 11:19 AM CLINICAL NURSING COORDINATOR Plan of Treatment Health Maintenance Due Date Last Done Comments DTAP/TDAP/TD VACCINES (6 - Tdap) 2010 05/15/2005, 04/13/2001, 03/26/2000, Additional history exists HPV VACCINES (1 - 3-dose series) 2014 CERVICAL CANCER SCREENING 2020 HPV/Cotest (21-29) 2020 PAP SMEAR 2020 INFLUENZA VACCINE (#1) 2025 08/17/2008 HEPATITIS B VACCINES Completed 03/19/2000, 1999, 1999 Insurance [facility] MEDICAID [facility] MEDICAID
--- NOTE | 2025-08-21 22:28 | XRR_ITS ---
PROCEDURE INFORMATION: Exam: XR Chest Exam date and time: 08/21/2025 10:31 PM Age: 24 years old Clinical indication: Shortness of breath TECHNIQUE: Imaging protocol: Radiologic exam of the chest. Views: 1 view. COMPARISON: CR XR chest 1V portable [id number] 07/03/2022 3:21 PM FINDINGS: Lungs: Unremarkable. No consolidation. Pleural spaces: Unremarkable. No pleural effusion. No pneumothorax. Heart/Mediastinum: Unremarkable. No cardiomegaly. Bones/joints: Unremarkable. XR/XR chest 1V portable [id number] IMPRESSION: No acute findings.
[2025-08-21] MEDS: ondansetron 2 mg/ML SDV 2 mL 4 MG IVP (22:58)
[2025-08-21] MEDS: diphenhydrAMINE 50 mg/mL SDV 1mL IVP (22:59)
[2025-08-21 23:03] LABS: Hematocrit 41.6 % (36-47); Hemoglobin 13.40 g/dL (11.27-16.99); Mean Corpuscular HGB Conc 32.2 g/dL (30-55); Mean Corpuscular Hemoglobin 30.2 pg (27-33); Mean Corpuscular Volume 93.7 fl (85-98); Nucleated Red Blood Cells % 0 %; Platelet Count 384 10^3/cmm (157-399); Red Blood Count 4.44 10^6/uL (3.85-5.65); White Blood Count 11.92 10^3/uL (3.29-11.43)
--- NOTE | 2025-08-21 23:06 | ED_ITS ---
HPI - Allergic Reaction 2 General: Chief complaint: Allergic Reaction Stated complaint: Allergic Reaction, Itchy, Hard to breath, CP Time Seen by Provider: 08/21/25 22:05 History of Present Illness: HPI narrative: Patient is a female who presents with acute onset of urticaria that began last night around midnight while at work. The patient reports developing significant welts and redness on her skin that were described as 'on fire.' She initially attempted to manage symptoms at home with Benadryl, but reports this was insufficient to control her symptoms. In addition to the skin manifestations, the patient developed stomach pains, diarrhea, nausea, and a feeling of tightness. She also reports her throat feels 'a little itchy' but denies throat closure or tongue swelling. The patient took her last dose of Benadryl at 7:00 PM. The rash has improved somewhat since initial presentation but remains present. 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 She denies known exposure to new foods but suspects possible bug bites as the trigger, though she has no history of similar reactions in the past. Related Data Previous Rx's ?Medication ?Instructions ?Recorded epinephrine 0.3 mg/0.3 mL 0.3 mg (0.3 mL) IM Q30M PRN 05/04/25 injection, auto-injector (EpiPen anaphylaxis #2 ea 2-Celso) hydroxychloroquine 200 mg tablet 200 mg PO BID #60 tab s 06/13/25 (Plaquenil) pantoprazole 40 mg tablet,delayed 40 mg PO DAILY #90 t abs 07/05/25 release (Protonix) ciprofloxacin HCl 500 mg tablet 500 mg PO BID 7 days # 14 tabs 08/09/25 (Cipro) cetirizine 10 mg tablet (Zyrtec) 10 mg PO DAILY #30 ta bs 08/21/25 diphenhydramine HCl 25 mg capsule 25 mg PO Q6H PRN all ergy symptoms 08/21/25 (Benadryl) #30 caps methylprednisolone 4 mg tablets in See Rx Instructions PO .COMPLEX 08/21/25 a dose pack (Medrol (Celso)) #21 ea Allergies Allergy/AdvReac Type Severity Reaction Status Date / Time Alpha-Gal Allergy Severe ALGY-Anaphy Verified 08/09/25 10:06 (Rlhbaludu-Fgetd-7,3-Gala laxis metoprolol Allergy Severe ADR/ALGY-Pa Verified 08/09/25 10:06 lpitations gabapentin Allergy Intermediate Unknown Verified 08/09/25 10:06 acetaminophen (From Delsym Allergy ALGY-Swell Verified 08/09/25 10:06 Cough-Cold) Lip/Tongue/Throat amoxicillin Allergy ALGY-Rash Verified 08/09/25 10:06 Beef Containing Products Allergy ADR-Abdominal Verified 08/09/25 10:06 Pain cefdinir Allergy ALGY-Rash Verified 08/09/25 10:06 clindamycin Allergy ADR-Gastrointestinal Verified 08/09/25 10:06 Upset dextromethorphan (From Allergy ALGY-Swell Verified 08/09/25 10:06 Delsym Cough-Cold) Lip/Tongue/Throat doxylamine (From Delsym Allergy ALGY-Swell Verified 08/09/25 10:06 Cough-Cold) Lip/Tongue/Throat duloxetine (From Cymbalta) Allergy ALGY-Rash Verified 08/09/25 10:06 esomeprazole (From Nexium) Allergy rash , Verified 08/09/25 10:06 itching Iodinated Contrast Media Allergy chest pain Verified 08/09/25 10:06 sulfamethoxazole (From Allergy ALGY-Rash Verified 08/09/25 10:06 Bactrim) trimethoprim (From Bactrim) Allergy ALGY-Rash Verified 08/09/25 10:06 PFSH ED 2 PFSH: Medical History Injury of left knee, subsequent encounter Fibromyalgia Immunization counseling High risk medication use Polyarthralgia Chronic pain of left knee Kami sign present in left knee Recurrent left knee instability Chronic pain of left knee Palpitations Major depressive disorder, recurrent severe without psychotic features Generalized anxiety disorder Psychiatric care Surgical History Status post laparoscopic cholecystectomy (03/07/21) H/O esophagogastroduodenoscopy Family History Family/Other Hypertension Denies family history of Clotting disorder Anesthesia complication Bleeding disorder Social History Smoking and tobacco/nicotine status: never used tobacco/nicotine Second hand smoke exposure: No Alcohol intake: former Year of sobriety/quit date alcohol: 2020 Substance/Drug Use: never Lives independently: No Household members: family Marital status: Single service: No Current occupational status: student 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 [employer] Current gender identity: Female Physical Exam 2 Const: GENERAL APPEARANCE: cooperative and anxious; not frail appearing HENMT: COMMON NORMALS: normocephalic, atraumatic and Normal external nose present HEAD & SCALP: normocephalic and atraumatic FACE & SINUS: normal facial exam and face symmetric NOSE: Normal external nose present Eye: COMMON NORMALS: Equal, round and reactive pupils present and EOMs intact bilaterally PUPIL: Yes Equal, round and reactive pupils present Neck/C-Spine: GENERAL: Yes trachea midline Chest: CHEST: Yes Symmetrical chest wall rise Resp: COMMON NORMALS: No retractions, No use of accessory muscles and clear to auscultation bilaterally EFFORT & INSPECTION: Yes tachypneic AUSCULTATION: clear to auscultation bilaterally Cardio: COMMON NORMALS: regular rate and regular rhythm RATE: regular rate RHYTHM: regular rhythm GI: COMMON NORMALS: Normal to inspection, nondistended, normoactive bowel sounds present Extremity: COMMON NORMALS: no pedal edema Neuro: ULISES COMA SCALE: document GCS findings [place] coma scale eye opening: Spontaneous [place] coma scale verbal response: Orientated [place] coma scale motor response: Obey commands [place] coma scale total score: 15 S ENSORY EXAM: Yes extremities (intact) Psych: COMMON NORMALS: speech normal SPEECH: Yes normal speech Skin: NARRATIVE SKIN EXAM: Significant urticaria, mainly to the right side of the trunk. Course 2 Vital Signs: Vital signs: Vital Signs Temperature 98.6 F 08/21/25 21:49 Pulse Rate 102 H 08/22/25 01:14 Respiratory Rate 16 08/21/25 21:49 Blood Pressure 112/74 08/22/25 01:14 Pulse Oximetry 99 08/22/25 01:14 Oxygen Delivery Me thod Room Air 08/21/25 21:49 MDM - Allergic Reaction Medical Decision Making Chest is nonacute on x-ray. CBC shows white blood cell count of 12. He is mildly tachycardic and anxious. Other vitals are stable. She is given IV Benadryl, Solu-Medrol, Pepcid. 1 mg of Ativan. She is somewhat improved on reexamination. No evidence of airway compromise. She will be placed on a tapering dose of steroid, continue antihistamines. Return for worsening symptoms or concerns. Continued exposure may be an issue given her occupation if in fact the bedbugs were the cause. Lab Data 08/21/25 22:53 08/21/25 22:53 Radiology Impressions Chest X-Ray 08/21/25 22:28 IMPRESSION: No acute findings. Laboratory Results WBC 11.92 10^3/uL (3.29-11.43) H 08/21/25 22:53 RBC 4.44 10^6/uL (3.85-5.65) 08/21/25 22:53 Hgb 13.40 g/dL (11.27-16.99) 08/21/25 22:53 Hct 41.6 % (36-47) 08/21/25 22:53 MCV 93.7 fl (85-98) 08/21/25 22:53 MCH 30.2 pg (27-33) 08/21/25 22:53 MCHC 32.2 g/dL (30-55) 08/21/25 22:53 RDW 12.3 % (12.1-15.1) 08/21/25 22:53 Plt Count 384 10^3/cmm (157-399) 08/21/25 22:53 MPV 9.7 fL (7.4-10.4) 08/21/25 22:53 Neut % (Auto) 68.4 % 08/21/25 22:53 Lymph % (Auto) 20.9 % 08/21/25 22:53 [place] % (Auto) 8.4 % 08/21/25 22:53 Eos % (Auto) 1.0 % 08/21/25 22:53 Baso % (Auto) 0.7 % 08/21/25 22:53 Neut # (Auto) 8.16 10^3/uL (1.8-7.7) H 08/21/25 22:53 Lymph # (Auto) 2.5 10^3/uL (0.8-4.8) 08/21/25 22:53 Murray # (Auto) 1.0 10^3/uL (0.2-0.9) H 08/21/25 22:53 Eos # (Auto) 0.1 10^3/uL (0.0-0.8) 08/21/25 22:53 Baso # (Auto) 0.1 10^3/uL (0.0-0.1) 08/21/25 22:53 Nucleated RBC % (auto) 0 % 08/21/25 22:53 Nucleated RBCs # 0.0 /100WBC 08/21/25 22:53 Sodium 138 mmol/L (136-145) 08/21/25 22:53 Potassium 3.9 mmol/L (3.5-5.1) 08/21/25 22:53 Chloride 104 mmol/L (98-107) 08/21/25 22:53 Carbon Dioxide 24 mmol/L (22-29) 08/21/25 22:53 Anion Gap 13.9 (5-19) 08/21/25 22:53 BUN 10 mg/dL (6-20) 08/21/25 22:53 Creatinine 0.9 mg/dL (0.5-0.9) 08/21/25 22:53 GFR Calculation 76.3 mL/min (90-130) L 08/21/25 22:53 Glucose 81 mg/dL (65-115) 08/21/25 22:53 Calculated Osmolality 284 mOsm/kg (285-295) L 08/21/25 22:53 Calcium 8.7 mg/dL (8.5-10.5) 08/21/25 22:53 Total Bilirubin 0.2 mg/dL (0.15-1.2) 08/21/25 22:53 AST 16 U/L (0-32) 08/21/25 22:53 ALT 12 U/L (0-33) 08/21/25 22:53 Alkaline Phosphatase 98 U/L (35-105) 08/21/25 22:53 Total Protein 7.1 g/dL (6.6-8.7) 08/21/25 22:53 Albumin 4.3 g/dL (3.5-5.2) 08/21/25 22:53 Globulin 2.8 g/dL (1.3-4.6) 08/21/25 22:53 HCG, Qual Negative (Negative) 08/21/25 22:53 Urine Color Yellow (Yellow) 08/21/25: Urine Appearance Clear (CLEAR) 08/21/25: Urine pH 7.0 (5-7) 08/21/25: Ur Specific [place] 1.010 (1.005-1.030) 08/21/25 22: Urine Protein Negative (Negative) 08/21/25: Urine Glucose (UA) Negative (Normal) 08/21/25: Urine Ketones Negative (Negative) 08/21/25: Urine Blood Negative (Negative) 08/21/25: Urine Nitrate Negative (Negative) 08/21/25: Urine Bilirubin Negative (Negative) 08/21/25: Urine Urobilinogen 0.2 mg/dL (Negative) 08/21/25: Ur Leukocyte Esterase Negative (Negative) 08/21/25: Urine RBC 0-2 /hpf (0-2) 08/21/25: Urine WBC 0-5 /hpf (0-5) 08/21/25: Ur Squamous Epith Cells 0-5 /hpf (0-5) 08/21/25: Amorphous Sediment Not Reportable 08/21/25: Urine Bacteria None seen /hpf (NONE) 08/21/25: Hyaline Casts 0-4 /lpf H 08/21/25: All radiology interpretation(s) finalized by discharge Discharge Plan Discharge Patient Disposition: Home Clinical Impression: Allergic reaction, Urticaria Condition: Stable Prescriptions: New methylprednisolone [Medrol (Celso)] 4 mg tablets,dose pack See Rx Instructions .ROUTE .COMPLEX Qty: 21 0RF Rx Instructions: orally per package directions diphenhydramine HCl [Benadryl] 25 mg capsule 25 mg PO Q6H PRN (Reason: allergy symptoms) Qty: 30 0RF cetirizine [Zyrtec] 10 mg tablet 10 mg PO DAILY Qty: 30 0RF No Action epinephrine [EpiPen 2-Celso] 0.3 mg/0.3 mL auto-injector 0.3 mg IM Q30M PRN (Reason: anaphylaxis) Qty: 2 0RF pantoprazole [Protonix] 40 mg tablet,delayed release (DR/EC) 40 mg PO DAILY Qty: 90 0RF ciprofloxacin HCl [Cipro] 500 mg tablet 500 mg PO BID 7 Days Qty: 14 0RF hydroxychloroquine [Plaquenil] 200 mg tablet 200 mg PO BID Qty: 60 3RF Discharge Orders: Discharge ED (Routine); Ordered 08/22/25 Ordered By: Flavio Saunders Referrals: Ambika Uriostegui FNP [Primary Care Provider, [facility]] Patient Instructions: Urticaria (ED), Allergies (ED), Opioid Safety, Pain Management, Patient Portal & Anant Instructions Activity Restrictions/Additional Instructions: Medication as directed. Continue to take Benadryl for the next 48 hours. Take Zyrtec daily as well. Return for problems. 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
[2025-08-21] MEDS: methylPREDNISolone sod succ 125 mg/2 mL INJ IVP (23:11)
[2025-08-21] MEDS: LORazepam 2 mg/mL INJ 1 mL 1 MG IVP (23:12)
[2025-08-21 23:13] LABS: HCG, Serum Qual Negative (Negative)
[2025-08-21 23:18] LABS: Alanine Aminotransferase 12 U/L (0-33); Albumin Level 4.3 g/dL (3.5-5.2); Alkaline Phosphatase 98 U/L (35-105); Aspartate Amino Transferase 16 U/L (0-32); Blood Urea Nitrogen 10 mg/dL (6-20); Calcium 8.7 mg/dL (8.5-10.5); Carbon Dioxide 24 mmol/L (22-29); Chloride 104 mmol/L (98-107); Globulin 2.8 g/dL (1.3-4.6); Glucose 81 mg/dL (65-115); Osmolality Calculated 284 mOsm/kg (285-295); Sodium 138 mmol/L (136-145); Total Protein 7.1 g/dL (6.6-8.7)
[2025-08-21 23:20] LABS: Anion Gap 13.9 (5-19); Potassium 3.9 mmol/L (3.5-5.1)
[2025-08-21 23:28] VITALS: BP 129/94; PULSE 101; O2SAT 100
[2025-08-21 23:35] LABS: Glucose Urine UA Negative (Normal); Nitrate Urine Negative (Negative); Specific Gravity, Urine 1.010 (1.005-1.030)
[2025-08-21 23:40] LABS: Add Urine Microscopic? YES
[2025-08-22 00:36] VITALS: BP 125/95; PULSE 100; O2SAT 98
[2025-08-22 01:14] VITALS: BP 112/74; PULSE 102; O2SAT 99
== END 2025-08-22 01:16 | disposition home or self-care (01) ==
PROVIDERS: Emergency Provider Emergency Medicine; PCP Nurse Practitioner Family
DX: T78.40XA Allergy, unspecified, initial encounter (principal); L50.0 Allergic urticaria; X58.XXXA Exposure to other specified factors, initial encounter
CPT/HCPCS: 71045; 80053; 81001; 84703; 85025; 96361; 96374; 96375; 99284; J1200; J2060; J2405; J2919; J3490; J7030